=== PATIENT | male | born 1970 | race Caucasian/White ===

== ENCOUNTER → 2017-07-22 11:16 | Outpatient (CLI) | payer OTHER, SELFPAY ==
--- NOTE | 2017-07-22 | TISS_PTH ---
PATIENT: SADIA CLEVELAND Jr. LOC: EMI U#:[id number] AGE/SX: 55/M ROOM: RE07/22/[address]: Dr. Benigno Quiñonez MD : 1970 BED: DIS: SPEC #: [id number] RECD: 07/23/17 11:04 STATUS: LEIGHTON MELISSA #: [id number] FARHAT: 07/22/17 00:[address]: Benigno Quiñonez DEPT: SURGICAL PATHOLOGY RECD BY: Lesly Harmon ENTERED: 07/23/17 12:14 SP TYPE: Tissue Bx EDI DR: Dr. Bhupendra Jurado MD Tissues: Skin of arm Procedures: Surgery Specimen Level IV HEADER OPERATION: Biopsy by shave method PRE-OP DIAGNOSIS: Basal cell carcinoma vs other TISSUE SUBMITTED: Right anterior proximal, upper arm MICROSCOPIC DIAGNOSIS Skin, right anterior proximal upper arm, shave biopsy: Basal cell carcinoma, superficial, ulcerated. AM:phillip 07/24/17 COMMENT Basal cell carcinoma extends to the deep margin of excision. Clinical correlation is suggested. MICROSCOPIC DESCRIPTION Slides are reviewed. GROSS DESCRIPTION Received in fixative is one container labeled with the patient's name and designated right anterior proximal upper arm. The specimen consists of a shave biopsy of lopez-white skin measuring 0.4 x 0.4 x 0.1 cm. The specimen is inked and submitted entirely in one cassette. / SJ:rg 07/23/17 TC:0 CPT: 18683
== END ==
PROVIDERS: Family Provider Family Medicine; PCP Family Medicine; Visit Provider Dermatology
DX: D48.5 Neoplasm of uncertain behavior of skin (principal)
CPT/HCPCS: 88305

== ENCOUNTER → 2019-04-04 13:39 | Outpatient (CLI) | payer OTHER, SELFPAY ==
[2019-03-02 15:09] VITALS: BMI 30.8
--- NOTE | 2019-04-04 13:42 | STEWCON_ITS ---
Reason For Study: Atrial Fibrillation Stress Results Protocol: Miguel Ángel Protocol Maximum Predicted HR: 169 bpm Target HR: 144 bpm % Maximum Predicted HR: 97 % DurationHeart Rate Stage (mm:ss) (bpm) BP Comment Baseline 82 130/82No Chest Pain; 3 ML Diluted Definity Given Miguel Ángel Protocol Stage I 3:00 100 134/70No Chest Pain Miguel Ángel Protocol Stage II 3:00 117 140/64No Chest Pain Miguel Ángel Protocol Stage III 3:00 133 146/60No Chest Pain Miguel Ángel Protocol Stage IV 3:00 164 160/72No Chest Pain Recovery 100 130/64No Chest Pain Stress Duration: 12:00 mm:ss Maximum Stress HR: 164 bpm METS: 13 Baseline Echocardiogram Findings Stress Echo Wall motion Data Resting WM Intermediate WM Stress WM Interpretation Summary Exercise stress echo. 49-year-old male with a history of chest pain. Resting EKG demonstrates normal sinus rhythm with a rate of 82 bpm normal intervals are noted resting blood pressures 130/82 mmHg. The patient exercised according to regular Miguel Ángel protocol for a total duration of 12 minutes completing stage IV of the Miguel Ángel protocol the maximum heart rate attained was 164 bpm which was 97% of maximum predicted heart rate the maximum workload was 13.7 metabolic equivalents. At rest there were no ST or T wave changes noted suggest ischemia peak exercise upsloping ST changes only were noted with no meet the criteria for ischemia. The resting blood pressure was 130/82 mmHg with a peak blood pressure 170/70 mmHg. No chest pain was noted. Echocardiographic images. The resting and stress echocardiographic images were performed with Definity enhancement. The resting echocardiogram demonstrated an ejection fraction of 60% with peak ejection fraction of 75% and no wall motion abnormalities noted. No ischemia is noted. Conclusion: Normal stress echocardiographic evaluation with no evidence of ischemia. No clinical angina. Excellent functional capacity. Ordering Physician: José Miguel Martinez Referring Physician: Bhupendra Jurado Performed By: Clare Saunders, JAMACS, RVT
== END ==
PROVIDERS: Family Provider Family Medicine; PCP Family Medicine; Referring Provider Internal Medicine Cardiovascular Disease; Visit Provider Internal Medicine Cardiovascular Disease
DX: I48.0 Paroxysmal atrial fibrillation (principal)
CPT/HCPCS: 93017; 93350; Q9957; A4216; C8928

== ENCOUNTER 2021-04-07 17:26 | Emergency (ER) | payer OTHER, SELFPAY ==
[2021-04-07] VITALS (8 sets, daily range): BP systolic 120–152; BP diastolic 80–118; PULSE 82–171; RESP 14–23; TEMP 36.3; O2SAT 93–100; BMI 29.7
--- NOTE | 2021-04-07 17:34 | EKG12_ITS ---
Test Reason : PALP Blood Pressure : / mmHG Vent. Rate : 153 BPM Atrial Rate : 174 BPM P-R Int : 000 ms QRS Dur : 092 ms QT Int : 292 ms P-R-T Axes : 000 014 233 degrees QTc Int : [address] & T wave abnormality, consider inferolateral ischemia Abnormal ECG Confirmed by SHARON CARRIZALES, RAYMUNDO ([id number]), film or videotape editor VALENTE GILLILAND ([id number]) on 04/09/2021 10:58:22 AM Referred By: Confirmed By:RAYMUNDO HERRERA MD
--- NOTE | 2021-04-07 17:39 | EX.ED.DYSGE1 ---
HPI History of Present Illness Chief Complaint: Palpitations Informant: patient and spouse/S.O. Narrative Narrative: 51-year-old male with a history of atrial fibrillation maintained on metoprolol presents to the emergency department with atrial fibrillation. Patient states that he noted that he went into A. fib at 1610 hrs. Patient states he took an extra metoprolol and had no change in his rhythm so he came to emergency. He does note that he missed his metoprolol dose last night. He states that he had a normal echocardiogram. The last time he had atrial fibrillation he converted after about 5-1/2 hours of Cardizem drip. He denies any chest pain or shortness of breath. [facility] Medical History Depression Diverticulitis Herpes Hyperlipidemia Insomnia New onset atrial fibrillation (02/02/19) Obesity Paroxysmal atrial fibrillation Home Medications metoprolol succinate 50 mg tablet,extended release 24 hr 50 mg PO BID #180 tab 12/06/20 [Rx Last Taken Unknown] Allergy/AdvReac Type Severity Reaction Status Date / Time No Known Allergies Allergy Verified 04/07/21 17:26 Family History Father Cancer Grandmother No problems noted. Grandfather Cancer Surgical History History of open sigmoidectomy Social History Smoking Status: Never smoker Smokeless tobacco user: other alcohol intake: current caffeine: Yes Type: coffee Number of servings: 2 ROS ROS ED Constitutional Constitutional ED: Denies chills or weight loss Eyes Eyes: Denies change in vision or diplopia ENT ENT ED: Denies ear pain, rhinorrhea or sore throat Cardiovascular Cardiovascular: Reports palpitations and racing heartbeat; Denies chest pain or orthopnea Respiratory/Chest Respiratory/Chest: Denies cough, dyspnea or orthopnea Gastrointestinal Gastrointestinal: Denies abdominal pain, diarrhea, nausea or vomiting Genitourinary Genitourinary ED: Denies dysuria, hematuria or urinary frequency Musculoskeletal Musculoskeletal: Denies arthralgias or myalgias Integumentary Denies abscess or rash Neurologic Neurologic: Denies headache(s) or weakness Psychiatric Psychiatric: Denies anxiety, depression, suicidal ideation or suicidal thoughts Endocrine Endocrinology: Denies polydipsia, polyphagia or polyuria Allergic/Immunologic Allergic/Immunologic ED: Denies mouth swelling, tongue swelling or urticaria EXAM Physical Exam Const Vital Signs: 04/07/21 17:26 04/07/21 17:45 04/07/21 18:02 Temperature 97.4 F L Temperature Source Temporal Pulse Rate 90 159 H Pulse Rate [1 (Initial Baseline)] Pulse Rate [2] Pulse Rate [3] Respiratory Rate 20 H 22 H Respiratory Rate [1 (Initial Baseline)] Respiratory Rate [2] Respiratory Rate [3] Respiratory Effort Normal Non-Labored Respiratory Pattern Normal Blood Pressure 146/105 H Blood Pressure [1 (Initial Baseline)] Blood Pressure [2] Blood Pressure [3] Blood Pressure Mean 118 Pulse Ox 100 97 Oxygen Delivery Method Room Air Room Air Oxygen Delivery Method [1 (Initial Baseline)] Oxygen Delivery Method [2] Oxygen Flow Rate (L/min) Oxygen Flow Rate (L/min) [1 (Initial Baseline)] Oxygen Flow Rate (L/min) [2] 04/07/21 18:41 04/07/21 18:54 04/07/21 18:55 Temperature Temperature Source Pulse Rate 171 H 91 91 Pulse Rate [1 (Initial Baseline)] 149 H Pulse Rate [2] 94 Pulse Rate [3] 106 H Respiratory Rate 18 20 H 19 H Respiratory Rate [1 (Initial Baseline)] 23 H Respiratory Rate [2] 14 Respiratory Rate [3] 22 H Respiratory Effort Respiratory Pattern Blood Pressure 132/87 H 144/89 H 132/93 H Blood Pressure [1 (Initial Baseline)] 152/118 H Blood Pressure [2] 149/90 H Blood Pressure [3] 132/87 H Blood Pressure Mean 107 Pulse Ox 96 96 95 Oxygen Delivery Method Nasal Cannula Nasal Cannula Room Air Oxygen Delivery Method [1 (Initial Baseline)] Room Air Oxygen Delivery Method [2] Nasal Cannula Oxygen Flow Rate (L/min) 4 4 Oxygen Flow Rate (L/min) [1 (Initial Baseline)] 98 Oxygen Flow Rate (L/min) [2] 4 04/07/21 19:00 04/07/21 19:05 Temperature Temperature Source Pulse Rate 95 87 Pulse Rate [1 (Initial Baseline)] Pulse Rate [2] Pulse Rate [3] Respiratory Rate 18 14 Respiratory Rate [1 (Initial Baseline)] Respiratory Rate [2] Respiratory Rate [3] Respiratory Effort Respiratory Pattern Blood Pressure 139/94 H 130/88 H Blood Pressure [1 (Initial Baseline)] Blood Pressure [2] Blood Pressure [3] Blood Pressure Mean Pulse Ox 95 95 Oxygen Delivery Method Room Air Room Air Oxygen Delivery Method [1 (Initial Baseline)] Oxygen Delivery Method [2] Oxygen Flow Rate (L/min) Oxygen Flow Rate (L/min) [1 (Initial Baseline)] Oxygen Flow Rate (L/min) [2] Positive well nourished and well developed General Appearance ED: well developed HEENT Reports normocephalic, head/scalp atraumatic, TM's clear and moist mucous membranes Negative for trauma Tympanic Membrane ED: Yes TM's clear Eyes PERRL and EOMs intact bilaterally Neck no lymphadenopathy, supple and no JVD Resp normal respiratory effort and clear to auscultation bilaterally Cardio no murmurs Rhythm: abnormal rhythm irregularly irregular GI normal to inspection, nondistended, normoactive bowel sounds and non-tender Palpation: soft Back/Spine no CVA tenderness and normal ROM Extremity normal to inspection General Extremety ED: Negative for edema General Extremity: Negative for edema Neuro oriented x3 and CN's II-XII intact bilaterally Sensorium / Orientation: alert Motor Exam: strength 5/5 throughout Psych mental status grossly normal Mood & Affect: Negative for depressed or tearful Skin no rashes or lesions noted and no wounds MDM MDM MDM Narrative Medical decision making narrative: Case was discussed with patient's senior assistant manager Dr. Martinez. He will be given a dose of Lovenox as we wait for labs. If labs are negative we will proceed with procedural sedation for electrical cardioversion. Patient is comfortable with this plan. Patient received a milligram of Ativan due to anxiety of the cardioversion. ASIC labs were obtained and showed normal potassium magnesium sodium troponin. Not anemic. Patient provided informed consent for the use of procedural sedation for electrical cardioversion. Patient was placed on the monitor given supplemental oxygen defibrillation pads were placed front and back. Timeout was performed. The patient received 25 mcg of fentanyl. 15 mg of etomidate was given. Once adequate sedation was achieved the patient received a synchronized 200 J shock which resulted in conversion to a sinus rhythm. Recovered in 5 minutes total procedural sedation time of 5 minutes. During recovery phase he did not have any apnea or hypoxia or hypotension. Patient was allowed to fully recover from the anesthesia. Repeat EKG will be obtained to document normal sinus rhythm. Lab Data Attestation: I reviewed the patient's lab results. Labs: Laboratory Results - last 24 hr 04/07/21 04/07/21 17:44 17:44 WBC 7.7 RBC 4.88 Hgb 15.0 Hct 43.3 MCV 88.7 MCH 30.7 MCHC 34.6 RDW Std Deviation 39.2 RDW Coeff of Elsa 12.1 Plt Count 275 MPV 8.9 Immature Gran % (Auto) 0.100 Neut % (Auto) 51.5 Lymph % (Auto) 36.3 [place] % (Auto) 10.4 H Eos % (Auto) 1.3 Baso % (Auto) 0.4 Absolute Neuts (auto) 4.0 Absolute Lymphs (auto) 2.80 Nucleated RBC % 0 Sodium 139 Potassium 3.6 Chloride 106 Carbon Dioxide 26.0 Anion Gap 7 BUN 16 Creatinine 1.02 Estim Creat Clear Calc 97.38 Est GFR (MDRD) Af Amer 98 Est GFR (MDRD) Non-Af 81 BUN/Creatinine Ratio 15.7 Glucose 126 H Calcium 9.4 Magnesium 2.1 Troponin I High Sens 5 EKG Initial EKG: Attestation: I personally reviewed and interpreted this EKG as follows: Comments: Atrial fibrillation with a ventricular rate of 153 bpm. Follow-up EKG: Attestation: I personally reviewed and interpreted this EKG as follows: Comments: Normal sinus rhythm ventricular rate of 86 bpm. Discharge Plan Triage Chief Complaint: Palpitations ED Provider: Patrick Patel Dx/Rx/DC Orders Clinical Impression: Paroxysmal atrial fibrillation Instructions: ED AFIB Prescriptions: No Action metoprolol succinate [Toprol XL] 50 mg tablet extended release 24 hr 50 mg PO BID Qty: 180 RF: 3 Primary Care Provider: Bhupendra Jurado Referrals: José Miguel Martinez MD [STAFF PHYSICIAN] - 1-2 Weeks Bhupendra Jurado MD [Primary Care Provider] - Disposition Disposition: Home, Self Care
[2021-04-07] MEDS: Enoxaparin 100 MG/ML Syringe SC (17:56)
[2021-04-07] MEDS: Aspirin 81 MG TAB.CHEW 324 MG PO (17:57)
[2021-04-07] MEDS: LORazepam 2 MG/ML Syringe 1 MG IV (17:58)
[2021-04-07 18:01] LABS: Basophil# 0.03 X10^3/uL; Basophil% 0.4 % (0-1); Eosinophils% 1.3 % (0-5); Hematocrit 43.3 % (40-54); Lymphocyte % 36.3 % (19-41); Mean Corp Hgb Conc 34.6 g/dL (32-36); Mean Corpuscular Hgb 30.7 pg (27.0-32.0); Mean Corpuscular Volume 88.7 fL (80-94); Mean Platelet Vol. 8.9 fl (6.2-12.0); Monocyte% 10.4 % (0-10); NRBC Flagged by Analyzer 0 % (0-5); Neutrophil # 3.98 X10^3/uL (2.7-7.7); Neutrophil % 51.5 % (47-70); Platelet Count 275 K/mm3 (150-450); RBC Distribution Width CV 12.1 % (11.6-14.6); RBC Distribution Width SD 39.2 fl (35.1-43.9); Red Blood Count 4.88 M/mm3 (4.6-6.2); White Blood Count 7.7 K/mm3 (4.4-11.0)
[2021-04-07 18:23] LABS: Anion Gap 7 (5-15); BUN 16 mg/dL (7-18); BUN/Creat Ratio 15.7 RATIO (10-20); Calcium,Total 9.4 mg/dL (8.5-10.1); Chloride 106 mmol/L (98-107); Creatinine, Serum 1.02 mg/dL (0.70-1.30); EST Glomerular Filtration Rate 81 mL/min (>60); Est Glom Filt Rate - Afr Amer 98 mL/min (>60); Estimated Creatinine Clearance 97.38 ml/min; Glucose 126 mg/dL (74-106); Magnesium 2.1 mg/dL (1.6-2.6); Potassium 3.6 mmol/L (3.5-5.1); Sodium Level 139 mmol/L (136-145); Troponin-I HS 5 pg/mL (3.0-78.0)
--- NOTE | 2021-04-07 18:49 | EKG12_ITS ---
Test Reason : POST CV Blood Pressure : / mmHG Vent. Rate : 086 BPM Atrial Rate : 086 BPM P-R Int : 158 ms QRS Dur : 088 ms QT Int : 362 ms P-R-T Axes : 032 018 025 degrees QTc Int : 433 ms Normal sinus rhythm Normal ECG Confirmed by SHARON CARRIZALES, RAYMUNDO ([id number]), scientific publications editor VALENTE GILLILAND ([id number]) on 04/09/2021 10:58:39 AM Referred By: Confirmed By:RAYMUNDO HERRERA MD
[2021-04-07] MEDS: fentaNYL 100 MCG/2 ML Ampul 25 MCG IV (18:50)
[2021-04-07] MEDS: Etomidate 20 MG/10 ML Vial 15 MG IV (18:50)
== END 2021-04-07 20:02 | disposition home or self-care (01) ==
PROVIDERS: Emergency Provider Emergency Medicine; PCP Family Medicine
DX: I48.0 Paroxysmal atrial fibrillation (principal); E66.9 Obesity, unspecified
CPT/HCPCS: 92960; 36591; 80048; 83735; 84484; 85025; 93005; 96372; 96374; 99285; J7030; A4216

== ENCOUNTER 2021-05-20 04:02 | Emergency (ER) | payer OTHER, SELFPAY ==
[2021-05-20] VITALS (9 sets, daily range): BP systolic 103–128; BP diastolic 72–96; PULSE 64–162; RESP 15–20; TEMP 36.7; O2SAT 95–99; BMI 31.2
--- NOTE | 2021-05-20 04:09 | EKG12_ITS ---
Test Reason : A-FIB Blood Pressure : / mmHG Vent. Rate : 136 BPM Atrial Rate : 136 BPM P-R Int : 000 ms QRS Dur : 090 ms QT Int : 264 ms P-R-T Axes : 000 010 054 degrees QTc Int : 397 ms Atrial fibrillation Nonspecific ST and T wave abnormality Abnormal ECG Confirmed by SUAD CARRIZALES, SHARI ([id number]), newspaper editor managing VALENTE GILLILAND ([id number]) on 05/22/2021 10:23:07 AM Referred By: RAPHAEL Confirmed By:SHARI BORJAS MD
--- NOTE | 2021-05-20 04:15 | RAD_ITS ---
STUDY: X-RAY CHEST REASON FOR EXAM: Male, 51 years old patient with chest pain. TECHNIQUE: Single AP portable view of the chest. COMPARISON: 11/01/2011. FINDINGS: Cardiac monitoring leads are present. The lungs are clear and hyperexpanded. There is no demonstrated pleural abnormality. Normal size heart. Normal mediastinum and zita. Normal visualized pulmonary arteries. Normal visualized aortic arch and descending thoracic aorta. Normal visualized thoracic spine. There are old bilateral clavicle fractures. There is no demonstrated abnormality of the visualized soft tissue structures of the upper abdomen. RAD/Chest 1 View (Portable) IMPRESSION: No radiographic evidence of acute cardiopulmonary disease. Electronically Signed: Anamika Galdamez MD at 4:38 EST , Service support ,
--- NOTE | 2021-05-20 04:21 | ED.VIS.CHEST ---
HPI History of Present Illness Chief Complaint: Palpitations Informant: patient Onset/Context/Timing Onset: Today and Hours Activity at onset: sudden Timing: Continuous Current Severity: Mild Maximum Severity: Mild Relieved By: Nothing Narrative Narrative: 51-year-old male known history of A. fib. First diagnosed in January 2019. That time he converted with medication. He had done well and in March of this year had recurrent A. fib RVR. Presented the emergency department and cardioverted at that time using conscious sedation and cardioversion. Tonight he got up to go the restroom and about an hour ago had recurrent A. fib. Otherwise he states he feels well. Denies recent illness. Prior Similar Symptoms: Yes Recent Illness/Hospitalization: No CVD Risk Factors: Negative for Hypertension, Diabetes and Hypercholesterolemia PE Risk Factors: Negative for Recent Travel/Surgery, Recent Immobilization, Prior DVT or PE, Cancer and OCP + Smoking + >/=35 TAD Risk Factors: Negative for Marfan's Syndrome PFSH PFS Medical History Atrial fibrillation with rapid ventricular response (04/07/21) Depression Diverticulitis Herpes Hyperlipidemia Insomnia New onset atrial fibrillation (02/02/19) Obesity Paroxysmal atrial fibrillation Home Medications metoprolol succinate 50 mg tablet,extended release 24 hr 50 mg PO BID #180 tab 12/06/20 [Rx Last Taken 05/20/21] metoprolol tartrate 25 mg tablet 25 mg PO DAILY PRN #90 tab 05/07/21 [Rx Last Taken 05/20/21] Allergy/AdvReac Type Severity Reaction Status Date / Time No Known Allergies Allergy Verified 04/07/21 17:26 Family History Father Cancer Grandmother No problems noted. Grandfather Cancer Surgical History History of cardioversion (04/07/21) History of open sigmoidectomy Social History Smoking Status: Never smoker Smokeless tobacco user: other alcohol intake: current caffeine: Yes Type: coffee Number of servings: 2 ROS ROS ED ROS Narrative No recent illness. Review of Systems ROS Unobtainable: Denies due to encephalopathy Constitutional Constitutional ED: Denies fever(s) Eyes Eyes: Denies none ENT ENT ED: Denies ear pain Cardiovascular Cardiovascular: Reports as per HPI and palpitations; Denies chest pain Respiratory/Chest Respiratory/Chest: Denies dyspnea Gastrointestinal Gastrointestinal: Denies abdominal pain, diarrhea, nausea or vomiting Genitourinary Genitourinary ED: Denies dysuria Musculoskeletal Musculoskeletal: Denies myalgias Integumentary Denies rash Neurologic Neurologic: Denies headache(s) Psychiatric Psychiatric: Denies depression Endocrine Endocrinology: Denies polyuria Hematologic/Lymphatic Hematologic/Lymphatic: Denies easy bruising Allergic/Immunologic Allergic/Immunologic ED: Denies urticaria EXAM Physical Exam Narrative Exam Narrative: Middle-age male A. fib RVR but no distress. Vital signs otherwise are stable. Pulse ox 90% room air no signs hypoxia. HEENT exam unremarkable neck nontender. Lungs clear to auscultation bilaterally. Heart irregularly irregular rate about 135 no murmur. Abdomen soft nontender. Moving all 4 extremities. Calves are nontender without edema or cords. Neurologically is awake and alert with no focal motor deficits. Const Vital Signs: 05/20/21 04:03 05/20/21 04:09 05/20/21 04:11 Temperature 98.1 F Temperature Source Temporal Pulse Rate 137 H Pulse Rate [1 (Initial Baseline)] Pulse Rate [2] Respiratory Rate 18 Respiratory Rate [1 (Initial Baseline)] Respiratory Rate [2] Respiratory Effort Normal Non-Labored Blood Pressure 112/96 H Blood Pressure [1 (Initial Baseline)] Blood Pressure [2] Blood Pressure Mean 101 Pulse Ox 99 Oxygen Delivery Method Room Air Room Air Oxygen Delivery Method [1 (Initial Baseline)] Oxygen Delivery Method [2] Oxygen Flow Rate (L/min) Oxygen Flow Rate (L/min) [1 (Initial Baseline)] Oxygen Flow Rate (L/min) [2] 05/20/21 05:02 05/20/21 05:17 05/20/21 05:24 Temperature Temperature Source Pulse Rate 77 162 H 76 Pulse Rate [1 (Initial Baseline)] 152 H Pulse Rate [2] 88 Respiratory Rate 20 H 15 20 H Respiratory Rate [1 (Initial Baseline)] 15 Respiratory Rate [2] 20 H Respiratory Effort Blood Pressure 117/72 119/80 107/73 Blood Pressure [1 (Initial Baseline)] 119/80 Blood Pressure [2] 117/72 Blood Pressure Mean 87 Pulse Ox 95 96 96 Oxygen Delivery Method Room Air Nasal Cannula Oxygen Delivery Method [1 (Initial Baseline)] Nasal Cannula Oxygen Delivery Method [2] Nasal Cannula Oxygen Flow Rate (L/min) Oxygen Flow Rate (L/min) [1 (Initial Baseline)] 4 Oxygen Flow Rate (L/min) [2] 4 05/20/21 05:29 05/20/21 05:34 05/20/21 06:00 Temperature Temperature Source Pulse Rate 77 79 72 Pulse Rate [1 (Initial Baseline)] Pulse Rate [2] Respiratory Rate 20 H 20 H 16 Respiratory Rate [1 (Initial Baseline)] Respiratory Rate [2] Respiratory Effort Blood Pressure 104/77 103/77 114/76 Blood Pressure [1 (Initial Baseline)] Blood Pressure [2] Blood Pressure Mean 88 Pulse Ox 96 97 97 Oxygen Delivery Method Nasal Cannula Nasal Cannula Oxygen Delivery Method [1 (Initial Baseline)] Oxygen Delivery Method [2] Oxygen Flow Rate (L/min) 4 4 Oxygen Flow Rate (L/min) [1 (Initial Baseline)] Oxygen Flow Rate (L/min) [2] Positive well nourished and well developed; Negative for obese, cachectic, contractures or unkempt General Appearance ED: well developed and NAD; Negative for unkempt, cachectic, contractures or pallor Nutritional Appearance: Negative for cachectic or obese HEENT normocephalic and atraumatic; Negative for trauma or tenderness Eyes PERRL and EOMs intact bilaterally Neck no lymphadenopathy, supple and no JVD General: Negative for tenderness Chest Wall inspection of chest normal and palpation of chest normal Chest: Negative for tenderness Resp normal respiratory effort and clear to auscultation bilaterally Auscultation: Negative for rales, rhonchi or wheezes Cardio no murmurs Rate: tachycardic and other Other Details: A. fib RVR rate of 135 or so. GI normal to inspection, nondistended, normoactive bowel sounds, soft to palpation, non-tender, non-distended and no masses Back/Spine no CVA tenderness Extremity normal to inspection General Extremety ED: Negative for edema or tenderness General Extremity: Negative for edema Neuro oriented x3 Sensorium / Orientation: awake, alert, oriented to person, oriented to place and oriented to time Motor Exam: strength 5/5 throughout Psych mental status grossly normal Appearance: Negative for unkempt Attitude: No agitated Mood & Affect: Negative for depressed or tearful Skin no rashes or lesions noted and no wounds General Skin Exam: Negative for jaundice or pallor MDM MDM MDM Narrative Medical decision making narrative: 51-year-old male A. fib RVR rate in the 130s. Labs are being obtained. Most likely will be cardioverted. Discussed with patient he wanted to be cardioverted. He was treated with etomidate 7 cc approximately 14 mg. Had conscious sedation within seconds. He was cardioverted with 200 J. His rhythm changed immediately to a sinus rhythm rate 85. He woke up after several minutes. His vital signs were stable the entire time. Will be observed and discharged to home. Repeat exam patient doing well at 6:30 AM. He is resting comfortably. He remains in sinus rhythm rate of 72. I spoke to patient's manager statistical programming he will follow him up as an outpatient. Lab Data Attestation: I reviewed the patient's lab results. Lab results narrative: CBC White count of 7. Hemoglobin 15. Platelets 269. Electrolytes unremarkable gap of 7 BUN 20 creatinine 1.9. Glucose 115. Troponin normal. Labs: Laboratory Results - last 24 hr 05/20/21 05/20/21 04:11 04:11 WBC 7.0 RBC 5.11 Hgb 15.0 Hct 45.1 MCV 88.3 MCH 29.4 MCHC 33.3 RDW Std Deviation 39.9 RDW Coeff of Elsa 12.2 Plt Count 269 MPV 8.5 Immature Gran % (Auto) 0.300 Neut % (Auto) 46.8 L Lymph % (Auto) 35.6 [place] % (Auto) 14.0 H Eos % (Auto) 2.7 Baso % (Auto) 0.6 Absolute Neuts (auto) 3.3 Absolute Lymphs (auto) 2.49 Nucleated RBC % 0 Sodium 141 Potassium 4.0 Chloride 111 H Carbon Dioxide 23.0 Anion Gap 7 BUN 20 H Creatinine 0.90 Estim Creat Clear Calc 110.36 Est GFR (MDRD) Af Amer 113 Est GFR (MDRD) Non-Af 94 BUN/Creatinine Ratio 22.2 H Glucose 115 H Calcium 9.0 Troponin I High Sens 4 Radiography Chest X-Ray - ED: 1 View, Read by ED Physician, Read by Radiologist, Normal, Heart, Lungs, Mediastinum, Bony Structures and No Acute Disease Diagnostic Testing: Clinical Impression(s) from Imaging Studies Chest X-Ray 05/20/21 04:15 IMPRESSION: No radiographic evidence of acute cardiopulmonary disease. Electronically Signed: Anamika Galdamez MD at 4:38 EST , Service support , Portable, single view chest x-ray, interpreted by myself the radiologist shows no acute abnormality. Normal cardiac silhouette and mediastinum. Old, bilateral clavicle fractures that have healed. Rhythm Strip Rhythm Strip: A-fib Rate: 136 Ectopy: None EKG Initial EKG: Attestation: I personally reviewed and interpreted this EKG as follows: Interpretation: Atrial Fibrillation Comments: Atrial fibrillation with rapid ventricular rate of 136 no acute signs of SD. Procedures Other Procedures Procedure(s): Cardioversion: Conscious sedation with etomidate. Cardioverted with 200 J. Patient did well. Immediately converted to a sinus rhythm at 85. Discharge Plan Triage Chief Complaint: Palpitations ED Provider: Roscoe Winn Dx/Rx/DC Orders Clinical Impression: Paroxysmal atrial fibrillation, Atrial fibrillation status post cardioversion Instructions: ED AFIB Prescriptions: No Action metoprolol succinate [Toprol XL] 50 mg tablet extended release 24 hr 50 mg PO BID Qty: 180 RF: 3 metoprolol tartrate 25 mg tablet 25 mg PO DAILY PRN (Reason: for breakthrough arrythmia) Qty: 90 RF: 3 Primary Care Provider: Bhupendra Jurado Referrals: Bhupendra Jurado MD [Primary Care Provider] - Activity Restrictions/Additional Instructions: Continue your current medications. Follow-up with your manager statistical programming. Return if feeling worse. I would not drive today due to the conscious sedation. Disposition Disposition: Home, Self Care
[2021-05-20 04:32] LABS: Absolute Lymphocyte Count 2.49 X10^3/uL (0.83-4.51); Absolute Neutrophil Count 3.3 X10^3/uL (2.0-7.7); Basophil# 0.04 X10^3/uL; Basophil% 0.6 % (0-1); Eosinophil# 0.19 X10^3/uL; Eosinophils% 2.7 % (0-5); Hematocrit 45.1 % (40-54); Lymphocyte # 2.49 X10^3/ul (0.83-4.51); Lymphocyte % 35.6 % (19-41); Mean Corp Hgb Conc 33.3 g/dL (32-36); Mean Corpuscular Hgb 29.4 pg (27.0-32.0); Mean Corpuscular Volume 88.3 fL (80-94); Mean Platelet Vol. 8.5 fl (6.2-12.0); Monocyte# 0.98 X10^3/uL; NRBC Flagged by Analyzer 0 % (0-5); Neutrophil # 3.28 X10^3/uL (2.7-7.7); Neutrophil % 46.8 % (47-70); Platelet Count 269 K/mm3 (150-450); RBC Distribution Width CV 12.2 % (11.6-14.6); RBC Distribution Width SD 39.9 fl (35.1-43.9); Red Blood Count 5.11 M/mm3 (4.6-6.2)
[2021-05-20] MEDS: LORazepam 2 MG/ML Syringe 1 MG IV (04:34)
[2021-05-20 04:51] LABS: Anion Gap 7 (5-15); BUN 20 mg/dL (7-18); BUN/Creat Ratio 22.2 RATIO (10-20); Chloride 111 mmol/L (98-107); EST Glomerular Filtration Rate 94 mL/min (>60); Est Glom Filt Rate - Afr Amer 113 mL/min (>60); Estimated Creatinine Clearance 110.36 ml/min; Glucose 115 mg/dL (74-106); Sodium Level 141 mmol/L (136-145); Troponin-I HS 4 pg/mL (3.0-78.0)
[2021-05-20] MEDS: Etomidate 20 MG/10 ML Vial 14 MG IV (05:17)
== END 2021-05-20 07:51 | disposition home or self-care (01) ==
PROVIDERS: Emergency Provider Emergency Medicine; PCP Family Medicine
DX: I48.0 Paroxysmal atrial fibrillation (principal); Z79.899 Other long term (current) drug therapy
CPT/HCPCS: 71045; 80048; 84484; 85025; 92960; 93005; 96374; 96375; 99285; J7050; A4216

== ENCOUNTER → 2024-02-25 | Outpatient (CLI) | payer OTHER, SELFPAY ==
--- NOTE | 2024-02-25 12:50 | STE_ITS ---
Reason For Study: CHEST PAIN Stress Results Protocol: Miguel Ángel Protocol Maximum Predicted HR: 164 bpm Target HR: 139 bpm % Maximum Predicted HR: 87 % DurationHeart Rate Stage (mm:ss) (bpm) BP BASELINE 71 128/86 STAGE 1 3:00 94 126/74 STAGE 2 3:00 105 120/70 STAGE 3 3:00 121 132/74 STAGE 4 2:16 142 142/78 RECOVERY 90 130/80 Stress Duration: 11:16 mm:ss Maximum Stress HR: 142 bpm Baseline Echocardiogram Findings Stress Echo Wall motion Data Resting WM Intermediate WM Stress WM ECHO/Stress Test Echo w/o Contrast Interpretation Summary Exercise stress echo. 54-year-old man with a history of chest pain. Rest EKG demonstrates normal sinus rhythm with a rate of 72 bpm normal interval s are noted resting blood pressure is 128/86 mmHg. The patient exercised according to the regular B ruce protocol for a total duration of 11 minutes and 15 seconds. Patient completed 2 minutes and 15 seconds stage IV of the Miguel Ángel protocol the maximum heart rate attained was 144 bpm which was 87% of max impacted heart rate the maximum workload was 13.7 metabolic equivalents. The patient maintaine d sinus rhythm throughout the recording. At rest there were no ST or T wave changes noted sugg est ischemia and at peak exercise there was up to [address] depression noted in lead V4, V5 and V6 not suggestive of ischemia. No chest discomfort which noted. The test was terminate d due to attainment of target heart rate. The peak blood pressure was 144/82 which was a blunted bl ood pressure response rate to exercise. Stress echocardiogram. Resting echocardiographic images demonstrated an ejection fraction of 55% at re st. No wall motion abnormalities were noted. With exercise there was reduction of low ventricular cavity size but the anterior wall appeared to exhibit less thickening and less contractions suggest suzanne of a possible perfusion abnormality noted in the anterior wall. Conclusion: Abnormal exercise stress echocardiogram with evidence of mid anterior ischemia noted at a high workload. Good functional aerobic capacity. Ordering Physician: Donovan Saunders Referring Physician: Donovan Saunders Performed By: Terri Grijalva RCS
== END | disposition home or self-care (01) ==
LOC: CVS 12:50
PROVIDERS: PCP Family Medicine; Referring Provider Nurse Practitioner Family; Visit Provider Nurse Practitioner Family
DX: R07.9 Chest pain, unspecified (principal); I48.0 Paroxysmal atrial fibrillation; E78.5 Hyperlipidemia, unspecified
CPT/HCPCS: 93017; 93350

== ENCOUNTER 2024-03-14 12:36 | Observation (INO) | payer OTHER, SELFPAY ==
--- NOTE | 2024-03-09 08:41 | RAD_ITS ---
EXAM: XR CHEST, 2 VIEWS CLINICAL INDICATION: Pre heart cath, [facility] TECHNIQUE: Frontal and lateral views of the chest. COMPARISON: May 20, 2021, November 01, 2011. FINDINGS: LUNGS AND PLEURAL SPACES: Unremarkable. No consolidation or edema. No pneumothorax. No effusion. HEART: Unremarkable. Cardiac silhouette not enlarged. MEDIASTINUM: Central airways and mediastinal contour are unremarkable. BONES/JOINTS: There are old healed fractures of bilateral mid clavicles, similar to prior exam. Mild multilevel thoracic spondylosis is unchanged. SOFT TISSUES: Unremarkable. RAD/Chest PA and Lateral IMPRESSION: No acute findings in the chest. Electronically Signed: Pau Ascencio MD at 2:33 EDT ,
[2024-03-09 09:27] LABS: Absolute Lymphocyte Count 2.53 X10^3/uL (0.83-4.51); Absolute Neutrophil Count 4.2 X10^3/uL (2.0-7.7); Basophil# 0.03 X10^3/uL; Basophil% 0.4 % (0-1); Eosinophil# 0.05 X10^3/uL; Eosinophils% 0.7 % (0-5); Hematocrit 45.4 % (40-54); Hemoglobin 15.3 g/dL (13.0-16.5); Lymphocyte # 2.53 X10^3/ul (0.83-4.51); Lymphocyte % 33.2 % (19-41); Mean Corp Hgb Conc 33.7 g/dL (32-36); Mean Corpuscular Hgb 29.9 pg (27.0-32.0); Mean Corpuscular Volume 88.7 fL (80-94); Mean Platelet Vol. 9.1 fl (6.2-12.0); Monocyte# 0.79 X10^3/uL; Monocyte% 10.4 % (0-10); NRBC Flagged by Analyzer 0 % (0-5); Neutrophil # 4.21 X10^3/uL (2.7-7.7); Platelet Count 274 K/mm3 (150-450); RBC Distribution Width CV 12.4 % (11.6-14.6); RBC Distribution Width SD 40.3 fl (35.1-43.9); Red Blood Count 5.12 M/mm3 (4.6-6.2); White Blood Count 7.6 K/mm3 (4.4-11.0)
[2024-03-09 09:51] LABS: Anion Gap 5 (5-15); BUN 16 mg/dL (7-18); BUN/Creat Ratio 16.6 RATIO (10-20); Calcium,Total 9.5 mg/dL (8.5-10.1); Chloride 108 mmol/L (98-107); Creatinine, Serum 0.96 mg/dL (0.70-1.30); EST Glomerular Filtration Rate 86 mL/min (>60); Est Glom Filt Rate - Afr Amer 104 mL/min (>60); Glucose 123 mg/dL (74-106); Potassium 4.2 mmol/L (3.5-5.1); Sodium Level 138 mmol/L (136-145)
[2024-03-11 10:03] VITALS: BMI 33.2
[2024-03-14] VITALS (8 sets, daily range): BP systolic 115–148; BP diastolic 73–83; PULSE 57–76; RESP 12–16; TEMP 36.4–36.5; O2SAT 97–99; BMI 33.2
--- NOTE | 2024-03-14 08:36 | PCM.HP.BLA ---
History and Physical Date of Admission: 03/14/24 Pleasant 53-year-old gentleman who presents to the [facility] today for a heart catheterization. He is a gentleman who had presented with atrial fibrillation with rapid ventricular response rate and spontaneously converted to sinus rhythm. He did unfortunately presents to the hospital again in May of this year and was placed on flecainide. He has done well since then. He is concerned about these episodes occurring more frequently. He has had no neck arm or jaw discomfort suggest angina. He remember he had a stress echocardiogram in 2018 with no evidence of ischemia. During his visit in March you remember he underwent a DC cardioversion in the emergency room. He had been put on flecainide in May 2021 and he has not had any atrial fibrillation episodes since. He acknowledges random, chest tightness. This is located on left and right side of his chest. This last for minutes. This has been infrequent over the past year. He denies arm, jaw, or neck discomfort. He states rare palpitations. He states his Kardia device has not shown A-fib. He denies bilateral lower extremity edema, but states left lower extremity edema. He denies claudication. He denies shortness of breath with activity, shortness of breath at rest, orthopnea, or PND. He acknowledges cough. He states intermittent snoring. He denies significant, sudden weight gain. He denies lightheadedness, dizziness, near-syncope, or syncope. He denies blood in urine, blood in stool, or epistaxis. He denies fever or chills. He denies myalgia. He denies fatigue. His exercise level has remained stable hoping to return to exercising 5 days a week. 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 Grandfather Cancer Social History Smoking Status: Never smoker Smokeless tobacco user: other alcohol intake: current caffeine: Yes Type: coffee Number of servings: 2 ROS Const Const: Negative for fatigue, weakness, headache(s), frequent falls, difficulty sleeping or excessive sweating Eyes Eyes: Negative for loss of peripheral vision, transient loss of vision, blurry vision, double vision or tunnel vision ENT ENT: Negative for headache(s), dizziness, Nosebleed/epistaxis or balance problems Cardio Chest Pain: Yes Frequency: other (a couple of episodes in the last year) Character: tightness Onset: other (Randomly) Location: left chest and right chest Duration: minutes Palpitations: Yes Edema: Left (Relates to varicose vein) Muscle aches with walking: None Resp Respiratory: Positive for Cough (Raspy cough since covid in April); Negative for SOB with activity, SOB at rest, SOB orthopnea\SOB lying down or paroxysmal nocturnal dyspnea GI GI: Negative nausea, vomiting, heartburn or black,tarry stools : Negative for hematuria Musc Musc: Negative for muscle aches/ myalgia, muscle weakness, joint pain or balance problems Skin Skin: Negative non-healing lesions, rash or unusual bruising Neuro Neuro: Negative for dizziness, lightheadedness, near syncope, syncope, frequent falls, headache(s), weakness, blurry vision, double vision or lack of coordination [place] Hematologic/Lymphatic: Negative for easy bleeding or easy bruising Endo Endo: Negative for fatigue, excessive sweating or increased thirst/drinking Psych Psych: Negative for anxiety or depression Allergy Allergy/Immunology: Negative for hives and Negative for rash Cardiology Exam Const Appearance: cooperative, healthy appearing, comfortable and no acute distress Nutritional Appearance: well nourished and obese Orientation: alert, awake and oriented x3 Head Head: normal to inspection Ears: hearing grossly normal bilaterally Nose: external nose normal Face and Sinus: face symmetric Mouth: moist mucous membranes Eyes General: appearance normal, both eyes and all related structures Eyelids: eyelids normal EOM: EOM intact bilaterally Neck Neck: normal visual inspection and no JVD Carotids: normal carotid upstroke Chest Chest inspection: normal inspection of the chest, symmetric chest movement and normal respiratory effort; Negative cough Auscultation: Bilateral: Clear to Auscultation Cardio Rate: regular rate Rhythm: regular rhythm Heart sounds: S1 normal and S2 normal; Negative rub, gallop or murmur GI GI: normal to inspection and obese Neuro General: patient alert, patient awake, patient oriented x3 and CN's II-XI intact bilaterally Skin Skin: no rashes or lesions noted Extremities Pulses: Normal: Right Posterior Tibial Pulse, Left Posterior Tibial Pulse, Right Radial Pulse and Left Radial Pulse Lower Extremity Edema: None: Bilateral Psych Psychological: normal affect Supplemental Info Supplemental Information Stress Echocardiogram from 02/25/2024: Conclusion: Abnormal exercise stress echocardiogram with evidence of mid anterior ischemia noted at a high workload. Good functional aerobic capacity. Assessment and Plan Assessment and Plan (1) Paroxysmal atrial fibrillation: Status: Chronic Plan: [id number] score: 0 Atrial fibrillation stage: 3A, paroxysmal Cardioversion: 04/07/2021 12 Lead EC06/03/2022-sinus rhythm at 71 bpm Stress echocardiogram: 02/25/2024-EF: 55% Heart Rate Control: Metoprolol succinate 50 mg p.o. twice daily, metoprolol tartrate as needed Antiarrhythmic: Flecainide 100 mg p.o. twice daily Anticoagulation/CVA Protection: None due to low [id number] score It was recommended go stress echocardiogram to ensure no coronary artery disease component and ensure safety with flecainide. He proceeded with a stress echocardiogram on 02/25/2024 that was abnormal. On account of abnormal stress test, he will proceed with heart catheterization. Depending on results, further recommendation will be made. He may require antiarrhythmic medication change. (2) Hyperlipidemia: Status: Chronic Qualifiers: Hyperlipidemia type: unspecified Qualified Code(s): E78.5 - Hyperlipidemia, unspecified Plan: He states this being monitored with primary care provider. Last lipid panel available for review is from January 2019. The importance of cholesterol control and lifestyle modifications reviewed with him. He is currently not on cholesterol-lowering medication. He was encouraged continue have his follow-up with primary care provider. (3) Chest pain: Status: Acute Plan: To help assess this further, he underwent a stress echocardiogram on 02/25/2024, that was abnormal. On account of such, he will proceed with heart catheterization. Depending on results, further recommendation will be made.
--- NOTE | 2024-03-14 11:51 | CL.D_ITS ---
Patient Name: SADIA CLEVELAND Study Date: 03/14/2024 Performing: José Miguel Martinez MD Ht: 74 inches 187.96 cm : 1970 Wt: 259 lbs 117.48 kg Age: 54 Gender: male BSA: 2.43 PROCEDURE(S) PERFORMED DC01-(35860)LHC/COR/LV CLINICAL PROFILE AND INDICATIONS Indications: Suspected CAD Heart Failure: None Stress/Imaging Stress Echocardiogram: Yes Result: Positive High RiskStress Echocardiogram: Positive High Risk CAD Presentations: Stable angina. CONCLUSIONS Coronary artery disease with severe disease noted in the left anterior descending artery and moderate disease noted in the right coronary artery RECOMMENDATIONS Referred for immediate PCI DESCRIPTION OF PROCEDURE The patient arrived to the procedure lab. The risks and benefits of the procedure as well as a full description of our services here and current unavailability of surgical backup were fully explained to the patient and/or their significant other prior to the catheterization. The Timeout was completed, verifying the correct patient and procedure. The patient's procedural site was prepped and draped in the usual fashion. Local anesthetic was given subcutaneously to right radial region with Lidocaine 2%. Using a modified Seldinger technique, arterial access was obtained via the right radial artery, a 6Fr sheath was inserted. Right Coronary Artery selective angiography was then performed in multiple views using a 5 Fr. 4.0 [place] catheter. Left Coronary Artery selective angiography was performed in multiple views using a 5 Fr. 4.0 [place] catheter. Left Ventriculography was performed in ALMANZAR projection using a 5 Fr. Pigtail catheter. LV to AO pullback pressures were then recorded. CORONARY ANGIOGRAPHY DOMINANCE: Right Dominant LEFT HEART ASSESSMENT Left Ventricular Ejection Fraction: by LV Gram 60 % Normal LV wall motion Normal Left Ventricular systolic function LEFT MAIN: Angiographically normal LEFT ANTERIOR DESCENDING ARTERY: Medium size vessel with first diagonal branch with 80% proximal long stenosis in the proximal to mid left anterior descending artery with long 90% stenosis in the distal tip and 90% stenosis is present. CIRCUMFLEX ARTERY: Mild luminal irregularities RIGHT CORONARY ARTERY: Diffusely diseased vessel with areas of stenosis in the mid segment of 50 to 60% stenosis. No high-grade focal stenosis is present. COMPLICATIONS PROCEDURE MEDICATIONS Versed 1 mg IV Fentanyl 50 mcg IV Versed 1 mg IV Fentanyl 25 mcg IV Versed 1 mg IV Versed 1 mg IV Oxygen: 2 L/min via nasal cannula Brilinta 180 mg PO @ 03/14/2024 11:36:40 Heparin given IA 03/14/2024 10:08:48 Heparin 6000 unit(s) IV 03/14/2024 11:39:33 Verapamil 2.5mg, Ntg 100mcgs, 3000 units of Heparin given IA 03/14/2024 10:08:48 SUMMARY OF HEMODYNAMIC DATA Time AIR REST ECG 08:50:29 AO 112/54 (70) SA 10:22:04 LV 113/16, 22 10:35:57 LV 115/16, 20 10:36:05 LV 113/16, 21 10:37:05 LVp 118/15, 23 10:37:12 AOp 120/77 (97) 10:37:20 AO 131/82 (103) 11:42:10 11:42:18 Signed By José Miguel Martinez MD On 03/14/2024 11:51:00 José Miguel Martinez MD
--- NOTE | 2024-03-14 12:45 | EKG12_ITS ---
Test Reason : PCI Blood Pressure : / mmHG Vent. Rate : 069 BPM Atrial Rate : 069 BPM P-R Int : 156 ms QRS Dur : 090 ms QT Int : 414 ms P-R-T Axes : 018 000 007 degrees QTc Int : 443 ms Normal sinus rhythm Normal ECG Confirmed by SHARON CARRIZALES, JOSÉ MIGUEL ([id number]), newspaper copy editor VALENTE GILLILAND ([id number]) on 03/15/2024 9:46:29 AM Referred By: José Miguel Martinez Confirmed By:JOSÉ MIGUEL MARTINEZ MD
--- NOTE | 2024-03-14 13:44 | CRPHASE1_ITS ---
Patient Communication Patient Information Former Patient:: Phase I PHII Cardiac Rehab Discussed with Patient:: Yes Guide to Cardiac Rehab Given to Patient:: Yes Cardiac Rehab Facility Choice List Given to Patient:: Yes Communication to Cardiac Rehab Choice Program [facility] PHII:: Communication Given to CR Coding Specialist Home Health:: [facility] Sessions:: 36 sessions - 3 days/wk, 12 weeks Medical/Surgical History Medical History MD:: No Angina:: Yes CAD:: Yes Congestive Heart Failure: Cardiomyopathy:: No Valve Disease/Replacement:: No Pulmonary:: No COPD:: No Asthma:: No HANNY:: No Diabetes:: No Diabetes Type I:: No Diabetes Type II:: No Hypertension:: No Dyslipidemia:: No Arrhythmias:: No EPS:: No CVA/TIA: CEA:: No PE:: No DVT:: No PVD:: No PAD:: No Arthritis:: No GI:: No GERD:: Yes Cancer:: No Renal:: No Thyroid:: No Depression:: No Anxiety:: Yes Surgical History CABG: No PTCA:: Yes ICD:: No Pacemaker:: No Orthopedic:: No Cardiac Rehabilitation Info Program Information Cardiac Rehabilitation Program Information: Cardiac Rehab The cardiac rehab team at [facility] consists of highly skilled exercise physiologists, nurses, respiratory therapists and physicians working together with you. Our purpose is to help you have a full recovery and achieve the goals you set for yourself. Over the years many of our patients have returned to activities they assumed they would never do again! We can help restore your confidence and motivation to make lifestyle changes that can have a significant impact on your health and quality of life! We can help answer questions and concerns you may have about exercise, lifestyle, medications, diet, stress and anxiety which are common following a hospitalization. WE monitor ECG and vital signs during exercise and discuss your progress with you and report to your physician(s). Cardiac Rehab is proven to help reduce readmissions, improve functional capacity and lower recurrence of problems with your heart. Our Cardiac Rehab program is Certified by the [place] [employer] Pulmonary [employer] (AACVPR) and Accredited by the [place] [employer] through our [facility]. You can contact us at . We invite you to call us with your questions or to get started in our program. If you have other questions or concerns be sure to ask your physician/provider during your follow-up visit. WE look forward to seeing you!
--- NOTE | 2024-03-14 13:46 | CRPH1.INSTRU ---
General Education Discussed with Patient CAD and cardiac anatomy and function:: Patient communicates acknowledgment Explanation of diagnoses and procedures:: Patient communicates acknowledgment Sign/Symptoms of TN:: Patient communicates acknowledgment Antiplatelet therapy: Patient communicates acknowledgment and Family communicates acknowledgment Proper use of NTG-SL: Patient communicates acknowledgment Emergency procedures and activation of EMS: Patient communicates acknowledgment Compliance of all prescribed medications: Patient communicates acknowledgment Smoking Response Code Nicotine/Smoking Response Code:: Not instructed Dyslipidemia Risk Factors Patient Dyslipidemia Risk Factors Are:: Total Cholesterol Recommendations Recommendations Include:: Lipid profile not available Response Code Dyslipidemia Response Code:: Patient communicates acknowledgment Overweight/Obesity Risk Factors Patient Overweight/Obesity Risk Factors Are:: Obesity - > or = 30 Recommendations Recommendations Include:: Reduced calorie diet Response Code Overweight/Obesity:: Patient communicates acknowledgment Hypertension Recommendations Recommendations Include:: Maintain BP <130/85 Response Code Hypertension:: Patient communicates acknowledgment Heart Disease Risk Factors Patient Heart Disease Risk Factors Are:: Previous cardiac event Recommendations Recommendations Include:: Educated family members of their risk Response Code Heart Disease Response Code:: Patient communicates acknowledgment Diabetes Risk Factors Patient Diabetes Risk Factors Are:: No documented hx of diabetes Metabolic Syndrome Response Code Metabolic Syndrome Response Code:: Not instructed Sedentary Risk Factors Patient Sedentary Risk Factors Are:: Lack of regular exercise Recommendations Recommendations Include:: Benefits of regular exercise and Monitored Outpatient Cardiac Rehab Response Code Sedentary Response Code:: Patient communicates acknowledgment Stress Recommendations Recommendations Include:: Identification of stressors, and assessment of coping skills and Stress management techniques Response Code Stress Response Code:: Patient communicates acknowledgment
[2024-03-14] MEDS: Aspirin 81 MG TAB.CHEW PO (14:15)
[2024-03-14] MEDS: 0.9% Saline Lock 10 ML Syringe IV (14:15)
[2024-03-14] MEDS: 0.9% Normal Saline (1000mL) 1,000 ML 75 ML IV (14:15)
--- NOTE | 2024-03-14 15:24 | CL.I_ITS ---
Patient Name: SADIA CLEVELAND Study Date: 03/14/2024 Performing: Jose Samuels MD Ht: 74 inches 187.96 cm : 1970 Wt: 259.3 lbs 117.48 kg Age: 54 Gender: male BSA: 2.43 PROCEDURE(S) PERFORMED IC12-([id number])GOPI W/WO PTCA, SINGLE CORONARY ARTERY CLINICAL PROFILE AND CO-MORBIDITIES Indications: Suspected CAD Heart Failure: None Stress/Imaging Stress Echocardiogram: Yes Result: Positive High Risk Stress Echocardiogram: Positive High Risk CAD Presentations: Stable angina. CONCLUSIONS Successful PCI of proximal LAD/diagonal 1 bifurcation with drug-eluting stent to the LAD. RECOMMENDATIONS DESCRIPTION OF PROCEDURE The patient arrived to the procedure lab. The risks and benefits of the procedure as well as a full description of our services here and current unavailability of surgical backup were fully explained to the patient and/or their significant other prior to the catheterization. The Timeout was completed, verifying the correct patient and procedure. The patient's procedural site was prepped and draped in the usual fashion. Local anesthetic was given subcutaneously to right radial region with Lidocaine 2% Using a modified Seldinger technique,arterial access was obtained via the right radial artery, a 6Fr sheath was inserted. Right Coronary Artery selective angiography was then performed in multiple views using a 5 Fr. 4.0 [place] catheter. Left Coronary Artery selective angiography was performed in multiple views using a 5 Fr. 4.0 [place] catheter. Left Ventriculography was performed in ALMANZAR projection using a 5 Fr. Pigtail catheter. LV to AO pullback pressures were then recorded.The images were reviewed and options discussed. A decision was then made to proceed with an Intervention, IVUS or other adjunct procedure. XB 3.0 Guide catheter was inserted and engaged into the LCA. Runthrough Guide wire was advanced to the 1st Diagonal. BMW Guide wire was advanced to the LAD. 2.25 x 20 [place] Balloon catheter was inserted. Balloon catheter was advanced across lesion in the LAD, proximal. PTCA balloon inflated at 10 atms for 23 secs. 2.5 x 30 [place] Drug Eluting stent was inserted. Drug Eluting stent was advanced across the lesion in the LAD, proximal. Angiogram performed post stent deployment. Runthrough Guide wire was advanced to the 1st Diagonal. 1.2 x 15 Emerge Balloon catheter was inserted. Balloon catheter was advanced across lesion in the first diagonal, ostial. PTCA balloon inflated at 12 atms for 22 secs. PTCA balloon inflated at 20 atms for 18 secs. Angiogram performed post balloon dilatation. 1.5 x 15 Emerge Balloon catheter was advanced across lesion in the first diagonal, ostial. 2.5 x 20 [place] Emerge Balloon catheter was advanced across lesion in the LAD, proximal. PTCA balloon inflated at 10 atms for 30 secs. PTCA balloon inflated at 10 atms for 20 secs. Angiogram performed post balloon dilatation. The arterial sheath was pulled and a TR Band was applied for hemostasis INTERVENTION INFORMATION LESION SITE: LAD (Proximal) Lesion Complexity: High/C, chronic total occlusion: No, lesion at bifurcation: Yes, thrombus present: No, lesion length: 28 mm, culprit lesion: Yes, Previously treated lesion: No Pre Stenosis: 90 % Pre intervention YOGI flow: 3 PROCEDURE: Drug Eluting Stent with pre and post dilatation The stent was deployed jailing diagonal branch that was pinched after stent deployment. We were able to cross the stent struts and into the diagonal branch and perform kissing balloon inflation with a 1.5 mm balloon in the diagonal branch and 2.5 mm NC balloon in the LAD. There was excellent angiographic result. There were no complications. Post Stenosis: 0 % Post intervention YOGI flow: 3 Lesion Devices: Garcia .014 190cm BMW [place] Straight Cordis 6 Fr XB3.0 100cm Guide Catheter Terumo .014 180cm Runthrough Extra Floppy straight [employer] EMERGE MR 2.25x20 BALLOON Medtronic 2.50 x 30 JUAN FRONTIER GOPI [employer] EMERGE MR 1.20x15 BALLOON [employer] EMERGE MR 1.50x15 BALLOON [employer] NC EMERGE MR 2.50x20 BALLOON COMPLICATIONS No Complications PROCEDURE MEDICATIONS Versed 1 mg IV Fentanyl 50 mcg IV Versed 1 mg IV Fentanyl 25 mcg IV Versed 1 mg IV Versed 1 mg IV Oxygen: 2 L/min via nasal cannula Brilinta 180 mg PO @ 03/14/2024 11:36:40 Heparin given IA 03/14/2024 10:08:48 Heparin 6000 unit(s) IV 03/14/2024 11:39:33 Verapamil 2.5mg, Ntg 100mcgs, 3000 units of Heparin given IA 03/14/2024 10:08:48 SUMMARY OF HEMODYNAMIC DATA Time AIR REST ECG 08:50:29 AO 112/54 (70) SA 10:22:04 LV 113/16, 22 10:35:57 LV 115/16, 20 10:36:05 LV 113/16, 21 10:37:05 LVp 118/15, 23 10:37:12 AOp 120/77 (97) 10:37:20 AO 131/82 (103) 11:42:10 AIR REST 11:42:18 Signed By Jose Samuels MD On 03/14/2024 15:23:01 Jose Samuels MD
[2024-03-14] MEDS: Metoprolol(XL)Succ 50 MG Tablet PO (21:28)
[2024-03-14] MEDS: Atorvastatin Calcium 80 MG Tablet PO (21:29)
[2024-03-14] MEDS: TICAGRELOR 90 MG TABLET PO (21:29)
[2024-03-15 02:00] VITALS: BP 121/71; PULSE 77; RESP 16; TEMP 36.4; O2SAT 98
[2024-03-15 03:00] VITALS: BP 122/71; PULSE 77; RESP 16; TEMP 36.4; O2SAT 98
[2024-03-15 06:28] LABS: Hematocrit 42.9 % (40-54); Hemoglobin 14.5 g/dL (13.0-16.5); Mean Corp Hgb Conc 33.8 g/dL (32-36); Mean Corpuscular Hgb 29.9 pg (27.0-32.0); Mean Corpuscular Volume 88.5 fL (80-94); Mean Platelet Vol. 8.8 fl (6.2-12.0); Platelet Count 243 K/mm3 (150-450); RBC Distribution Width CV 12.5 % (11.6-14.6); RBC Distribution Width SD 40.6 fl (35.1-43.9); Red Blood Count 4.85 M/mm3 (4.6-6.2); White Blood Count 6.4 K/mm3 (4.4-11.0)
[2024-03-15 06:55] LABS: ALB/GLOB Ratio 0.9 RATIO (0.9-2.4); AST(SGOT) 16 U/L (15-37); Alanine Aminotransfer ALT/SGPT 43 U/L (16-61); Albumin, Serum 3.1 g/dL (3.2-5.0); Alkaline Phosphatase 59 U/L (45-117); Anion Gap 6 (5-15); BUN 12 mg/dL (7-18); Calcium,Total 8.8 mg/dL (8.5-10.1); Chloride 111 mmol/L (98-107); Creatinine, Serum 0.86 mg/dL (0.70-1.30); EST Glomerular Filtration Rate 98 mL/min (>60); Est Glom Filt Rate - Afr Amer 119 mL/min (>60); Estimated Creatinine Clearance 130.66 ml/min; Globulin 3.6 g/dL (2.2-4.2); Glucose 130 mg/dL (74-106); Potassium 3.9 mmol/L (3.5-5.1); Protein, Total 6.7 g/dL (6.4-8.2); Sodium Level 140 mmol/L (136-145)
--- NOTE | 2024-03-15 07:20 | PN.CARD_ITS ---
Subjective Subjective Patient seen and evaluated. Appears to doing well this morning. Objective Data Vital Signs: Vital Signs Temp Pulse Resp BP Pulse Ox O2 Del Method 97.5 F L 77 16 122/71 H 98 Room Air 03/15/24 03:00 03/15/24 03:00 03/15/24 03:00 03/15/24 03:00 03/15/24 03:00 03/15/24 03:00 Oxygen Delivery Method Room Air Weight: 259 lb Body Mass Index (BMI) 33.2 Intake & Output: Intake and Output for Last 24 Hours 03/13/24 03/14/24 03/15/24 23:59 23:59 23:59 Intake Total 1360 / 1360 Balance 1360 / 1360 Lab / Micro Data 03/15/24 05:33 03/15/24 05:33 Labs: Laboratory Results - last 24 hr 03/15/24 05:33: WBC 6.4, RBC 4.85, Hgb 14.5, Hct 42.9, MCV 88.5, MCH 29.9, MCHC 33.8, RDW Std Deviation 40.6, RDW Coeff of Elsa 12.5, Plt Count 243, MPV 8.8, Sodium 140, Potassium 3.9, Chloride 111 H, Carbon Dioxide 22.0, Anion Gap 6, BUN 12, Creatinine 0.86, Estim Creat Clear Calc 130.66, Est GFR (MDRD) Af Amer 119, Est GFR (MDRD) Non-Af 98, BUN/Creatinine Ratio 14.0, Glucose 130 H, Calcium 8.8, Total Bilirubin 0.40, AST 16, ALT 43, Alkaline Phosphatase 59, Total Protein 6.7, Albumin 3.1 L, Globulin 3.6, Albumin/Globulin Ratio 0.9 Cardiology Labs/Tests 03/15/24 05:33: WBC 6.4, RBC 4.85, Hgb 14.5, Hct 42.9, MCV 88.5, MCH 29.9, MCHC 33.8, Plt Count 243, MPV 8.8, Sodium 140, Potassium 3.9, Chloride 111 H, Carbon Dioxide 22.0, Anion Gap 6, BUN 12, Creatinine 0.86, Est GFR (MDRD) Af Amer 119, Est GFR (MDRD) Non-Af 98, BUN/Creatinine Ratio 14.0, Glucose 130 H, Calcium 8.8, Total Bilirubin 0.40 Rhythm: Normal sinus rhythm occasional PVCs EKG: ECHO: Stress Test: Cardiac Cath: PCI: CT Surgery: Holter monitor: EPS: PPM: CXR: Chest CT Scan: Physical Exam Const alert, oriented x3 and no apparent distress General Appearance: cooperative HEENT hearing grossly normal bilaterally Head and Scalp: atraumatic Eyes EOMs intact bilaterally Neck General: normal visual inspection Chest inspection of chest normal and palpation of chest normal Resp normal respiratory effort Auscultation: clear to auscultation bilaterally Cardio regular rate, regular rhythm, S1 normal heart sound and S2 normal heart sound Jugular Venous Distention: JVD GI normal to inspection, nondistended, normoactive bowel sounds Extremity normal capillary refill and no pedal edema Peripheral Pulses: Yes pulses 2+ throughout and femoral pulses present Skin no rashes or lesions noted Neuro oriented x3 and CN's II-XII intact bilaterally Psych Appearance: grossly normal and appropriate Assessment & Plan Assessment/Plan (1) Abnormal stress echocardiogram: PLAN: Patient had an abnormal stress echocardiogram underwent cardiac catheterization with demonstrated high-grade proximal to mid LAD lesion for which she underwent angioplasty and stenting. The diagonal vessel was angioplastied. He did well overnight with no chest pain or shortness of breath and no rhythm abnormalities. He will be discharged for outpatient follow-up and cardiac rehabilitation (2) Paroxysmal atrial fibrillation: PLAN: He does have a history of paroxysmal atrial fibrillation. The plan will be for him to remain on the beta-marisa. The flecainide will be discontinued on account of his newly discovered coronary artery disease. (3) Hyperlipidemia: QUALIFIERS: Hyperlipidemia type: unspecified Qualified Code(s): E 78.5 - Hyperlipidemia, unspecified PLAN: He will go on high intensity statin for secondary risk factor modification. PLAN: Plan He can be discharged for follow-up in the office and to resume work in a week.
--- NOTE | 2024-03-15 07:25 | DCINST_ITS ---
Discharge Instructions Diet Discharge Diet: No restrictions (You may continue your normal diet.) Activity Discharge Activity: Return to Normal Activity Lifting Restrictions: 10 pounds and also avoid any pushing or pulling for 3 days after your test. Additional Activity Instructions:: You must have someone drive you home. Do not drive until instructed by your doctor. You must have someone stay with you all night after your test. Rest in bed or on the couch until the next morning. Limit the number of times you go up and down stairs the day of your test. Apply pressure to the puncture site if you sneeze or cough. Dressing / Incision Call your doctor if your incision/area has: Increased Pain/ Swelling, Increased Redness, Foul Smelling Discharge and Swelling at the incision site Call your doctor if you observe: Fever of 101 or Higher Additional Dressing/Incision Instructions:: Keep the dressing (bandage) on until the next morning. You may then shower, but do not take a tub bath for 5 days after your test. It is normal to have some tenderness and discomfort at the puncture site. Sometimes bruising also occurs. However, if pain, numbness, or coldness occurs below the puncture site (in your leg, toes, arms or fingers) call your doctor at once. You may have a small, marble sized knot at the puncture site. This is normal. Do not rub it. It will go away in 4-6 weeks. Bleeding can occur from the area where the puncture was done. Blood may spurt or drip from the site. If blood spurts, apply pressure right away to stop bleeding and call 911. Although rare, bleeding into the tissue (hematoma) can also occur. If this happens, a large, firm area goose egg under the skin will appear. If any of these occur, lie down as flat as you can and have someone apply firm pressure to the cath site with a gauze pad or a clean washcloth for 10-15 minutes. Call 911 or go to the Emergency Department. Follow Up Care When: Office will call you for follow-up Test Results: Test results from this visit will be discussed in further detail at your follow- up appointment, if applicable. Discharge Plan Admission Admit Date/Time: 03/14/24 12:36 Attending Provider: Logan Samuels Primary Care Provider: Bhupendra Jurado Discharge Orders/Prescriptions Prescriptions: New atorvastatin 80 mg Tablet 80 mg PO QHS Qty: 180 2RF Brilinta 90 mg Tablet 90 mg PO BID 180 Days Qty: 360 2RF Continued metoprolol succinate [Toprol XL] 50 mg tablet extended release 24 hr 50 mg PO BID Qty: 180 3RF metoprolol tartrate 25 mg tablet 25 mg PO .PRN PRN (Reason: for breakthrough arrythmia) Qty: 14 0RF aspirin 81 mg tablet,chewable 81 mg PO ONCE Qty: 7 0RF Discontinued flecainide 100 mg tablet 100 mg PO Q12H Qty: 180 3RF Referrals / Follow Up: Bhupendra Jurado MD [Primary Care Provider] - Disposition Disposition (needs filled in before D/C Order can be placed): Home, Self Care
[2024-03-15 08:30] VITALS: BP 141/84; PULSE 65; RESP 12; TEMP 36.6; O2SAT 96
[2024-03-15 08:34] VITALS: PULSE 65
[2024-03-15] MEDS: Metoprolol(XL)Succ 50 MG Tablet PO (08:34)
[2024-03-15] MEDS: TICAGRELOR 90 MG TABLET PO (08:34)
--- NOTE | 2024-03-15 09:34 | CASEMGMT ---
ANA GUZMAN reviewed DC order, pt was ordered new prescription for Brilinta. ANA GUZMAN called pharmacy, spoke with Victor Manuel, stated cost for pt is $429. ANA GUZMAN into pt room, provided pt with Brilinta savings card. Instructed pt to follow up with doctor at follow up appointment to discuss cost and see if provider can order something more affordable for pt once Brilinta prescription is finished. Pt verbalized understanding and denies any questions or concerns at this time.
--- NOTE | 2024-03-15 10:00 | EKG12_ITS ---
Test Reason : POST PCI Blood Pressure : / mmHG Vent. Rate : 068 BPM Atrial Rate : 068 BPM P-R Int : 164 ms QRS Dur : 082 ms QT Int : 436 ms P-R-T Axes : 012 -03 -01 degrees QTc Int : 463 ms Sinus rhythm with occasional Premature ventricular complexes Minimal voltage criteria for LVH, may be normal variant ( R in aVL ) Borderline ECG Confirmed by JOSÉ MIGUEL MARTINEZ MD ([id number]), editor school photograph PENNY SAVAGE ([id number]) on 03/16/2024 10:57:08 AM Referred By: José Miguel Martinez Confirmed By:JOSÉ MIGUEL MARTINEZ MD
== END 2024-03-15 07:25 | disposition home or self-care (01) ==
LOC: CLSP 12:51 → PCU 12:51
PROVIDERS: Nurse Practitioner Family; Admitting Provider Specialist; PCP Family Medicine; Referring Provider Internal Medicine Cardiovascular Disease; Visit Provider Specialist
DX: I25.118 Atherosclerotic heart disease of native coronary artery with other forms of angina pectoris (principal); I48.0 Paroxysmal atrial fibrillation; E78.5 Hyperlipidemia, unspecified; R94.39 Abnormal result of other cardiovascular function study; Z79.899 Other long term (current) drug therapy
CPT/HCPCS: 36415; 71046; 80048; 80053; 85025; 85027; 92928; 93005; 93458; 96360; 96361; 99152; 99153; 99221; J7030; J7040; Q9967; A4216; C1725; C1769; C1874; C1887; C1894; C9600; G0378; J1327

== ENCOUNTER 2024-06-04 19:27 | Emergency (ER) | payer OTHER, SELFPAY ==
[2024-06-04] VITALS (13 sets, daily range): BP systolic 103–119; BP diastolic 67–97; PULSE 70–179; RESP 18; TEMP 36.6–36.8; O2SAT 94–97; BMI 34.3
--- NOTE | 2024-06-04 19:37 | ED.VIS.CHEST ---
HPI History of Present Illness Chief Complaint: Palpitations Informant: patient Onset/Context/Timing Onset: Today (6 PM about an hour and a half ago.) and Hours Activity at onset: sudden Timing: Continuous Narrative Narrative: 54-year-old male history of CAD with a stent. History of A-fib on metoprolol, aspirin and Plavix. About 6 PM tonight he suddenly went into A-fib. Denies chest pain. His heart rates been 150+. Its now been about an hour and a half. He took metoprolol earlier today and took an extra 50 mg shortly after he went into A-fib. His rate has not really improved. Prior Similar Symptoms: Yes Recent Illness/Hospitalization: No CVD Risk Factors: Negative for Hypertension, Diabetes or Smoking PE Risk Factors: Negative for Recent Travel/Surgery, Recent Immobilization, Prior DVT or PE, Cancer or OCP + Smoking + >/=35 TAD Risk Factors: Negative for Marfan's Syndrome PFSH PFS Medical History Arteriosclerotic cardiovascular disease Colonoscopy planned Atrial fibrillation with rapid ventricular response (04/07/21) Obesity New onset atrial fibrillation (02/02/19) Paroxysmal atrial fibrillation Depression Hyperlipidemia Diverticulitis Herpes Insomnia Home Medications ?Medication ?Instructions ?Recorded ?Last Taken ?Type metoprolol succinate 50 mg 50 mg PO BID blood pressure #180 12/08/23 Unknown Rx tablet,extended release 24 hr tabs (Toprol XL) metoprolol tartrate 25 mg tablet 25 mg PO .PRN PRN for breakthrough 12/08/23 Unknown Rx arrythmia #14 tabs aspirin 81 mg chewable tablet 81 mg PO ONCE heart health #7 tabs 02/28/24 03/14/24 Rx atorvastatin 80 mg tablet 80 mg PO QHS #180 tabs 03/15/24 Unknown Rx clopidogrel 75 mg tablet (Plavix) 75 mg PO QDAY #90 tabs 03/31/24 Unknown Rx Allergy/AdvReac Type Severity Reaction Status Date / Time No Known Allergies Allergy Verified 06/04/24 19:27 Family History Father Cancer Grandmother No problems noted. Grandfather Cancer Surgical History Stented coronary artery (03/14/24) History of cardioversion (04/07/21) History of open sigmoidectomy Social History Smoking Status: Never smoker Smokeless tobacco user: other alcohol intake: current caffeine: Yes Type: coffee Number of servings: 2 ROS ROS ED ROS Narrative Denies recent illness. Constitutional Constitutional ED: Denies chills or fever(s) Eyes Eyes: Reports none ENT ENT ED: Denies ear pain Cardiovascular Cardiovascular: Reports palpitations and racing heartbeat; Denies chest pain Respiratory/Chest Respiratory/Chest: Denies cough or dyspnea Gastrointestinal Gastrointestinal: Denies abdominal pain Genitourinary Genitourinary ED: Denies dysuria Musculoskeletal Musculoskeletal: Denies arthralgias Integumentary Denies abscess Neurologic Neurologic: Denies headache(s) or paresthesias Psychiatric Psychiatric: Denies anxiety or depression Endocrine Endocrinology: Denies cold intolerance Hematologic/Lymphatic Hematologic/Lymphatic: Denies lymphadenopathy Allergic/Immunologic Allergic/Immunologic ED: Denies mouth swelling EXAM Physical Exam Narrative Exam Narrative: 54-year-old male A-fib RVR on the monitor rate about 152 on my exam. Vital signs are afebrile. His heart rate in triage was 179. He is tolerating it well. He is accompanied by his and son. H EENT exam unremarkable. Neck nontender. Lungs clear to auscultation bilaterally. Heart A-fib RVR rate 150s. Chest wall nontender. Abdomen soft nontender. Moving all 4 extremities. Chronic trace edema lower extremities. Normal strength. Normal range of motion. Back nontender. He is awake and alert. No focal motor deficits. Const Vital Signs: 06/04/24 19:27 06/04/24 19:34 06/04/24 20:26 Temperature 97.8 F Temperature Source Temporal Pulse Rate 179 H Pulse Rate [1 (Initial Baseline)] Pulse Rate [2] Pulse Rate [3] Pulse Rate [4] Pulse Rate [5] Pulse Rate [6] Respiratory Rate 18 Respiratory Rate [1 (Initial Baseline)] Respiratory Rate [2] Respiratory Rate [3] Respiratory Rate [4] Respiratory Rate [5] Respiratory Rate [6] Blood Pressure 119/97 H Blood Pressure [1 (Initial Baseline)] Blood Pressure [5] Blood Pressure [6] Blood Pressure Mean 104 Pulse Ox 95 95 Oxygen Delivery Method Room Air Oxygen Delivery Method [1 (Initial Baseline)] Oxygen Delivery Method [2] Oxygen Delivery Method [3] Oxygen Delivery Method [4] Oxygen Delivery Method [5] Oxygen Delivery Method [6] EtCo2 (Normal 35-45 , high quality CPR 10-20 & ROSC>/=40mmHg 28 EtCo2 (Normal 35-45 , high quality CPR 10-20 & ROSC>/=40mmHg [1 (Initial Baseline)] EtCo2 (Normal 35-45 , high quality CPR 10-20 & ROSC>/=40mmHg [2] EtCo2 (Normal 35-45 , high quality CPR 10-20 & ROSC>/=40mmHg [3] EtCo2 (Normal 35-45 , high quality CPR 10-20 & ROSC>/=40mmHg [4] EtCo2 (Normal 35-45 , high quality CPR 10-20 & ROSC>/=40mmHg [5] EtCo2 (Normal 35-45 , high quality CPR 10-20 & ROSC>/=40mmHg [6] 06/04/24 20:30 06/04/24 20:55 06/04/24 20:58 Temperature 98.2 F Temperature Source Pulse Rate 124 H 140 H Pulse Rate [1 (Initial Baseline)] 140 H Pulse Rate [2] 114 H Pulse Rate [3] 126 H Pulse Rate [4] 75 Pulse Rate [5] 71 Pulse Rate [6] 70 Respiratory Rate 18 18 Respiratory Rate [1 (Initial Baseline)] 18 Respiratory Rate [2] 18 Respiratory Rate [3] 18 Respiratory Rate [4] 18 Respiratory Rate [5] 18 Respiratory Rate [6] 18 Blood Pressure 104/74 108/73 Blood Pressure [1 (Initial Baseline)] 108/73 Blood Pressure [5] 110/70 Blood Pressure [6] 107/67 Blood Pressure Mean 84 Pulse Ox 94 94 Oxygen Delivery Method Room Air Room Air Oxygen Delivery Method [1 (Initial Baseline)] Room Air Oxygen Delivery Method [2] Room Air Oxygen Delivery Method [3] Room Air Oxygen Delivery Method [4] Room Air Oxygen Delivery Method [5] Room Air Oxygen Delivery Method [6] Room Air EtCo2 (Normal 35-45 , high quality CPR 10-20 & ROSC>/=40mmHg 20 EtCo2 (Normal 35-45 , high quality CPR 10-20 & ROSC>/=40mmHg [1 (Initial Baseline)] 30 EtCo2 (Normal 35-45 , high quality CPR 10-20 & ROSC>/=40mmHg [2] 30 EtCo2 (Normal 35-45 , high quality CPR 10-20 & ROSC>/=40mmHg [3] 30 EtCo2 (Normal 35-45 , high quality CPR 10-20 & ROSC>/=40mmHg [4] 30 EtCo2 (Normal 35-45 , high quality CPR 10-20 & ROSC>/=40mmHg [5] 30 EtCo2 (Normal 35-45 , high quality CPR 10-20 & ROSC>/=40mmHg [6] 30 06/04/24 21:00 06/04/24 21:04 06/04/24 21:09 Temperature Temperature Source Pulse Rate 126 H Pulse Rate [1 (Initial Baseline)] Pulse Rate [2] Pulse Rate [3] Pulse Rate [4] Pulse Rate [5] Pulse Rate [6] Respiratory Rate 18 Respiratory Rate [1 (Initial Baseline)] Respiratory Rate [2] Respiratory Rate [3] Respiratory Rate [4] Respiratory Rate [5] Respiratory Rate [6] Blood Pressure 108/73 Blood Pressure [1 (Initial Baseline)] Blood Pressure [5] Blood Pressure [6] Blood Pressure Mean 84 Pulse Ox 96 Oxygen Delivery Method Room Air Room Air Room Air Oxygen Delivery Method [1 (Initial Baseline)] Oxygen Delivery Method [2] Oxygen Delivery Method [3] Oxygen Delivery Method [4] Oxygen Delivery Method [5] Oxygen Delivery Method [6] EtCo2 (Normal 35-45 , high quality CPR 10-20 & ROSC>/=40mmHg 30 32 EtCo2 (Normal 35-45 , high quality CPR 10-20 & ROSC>/=40mmHg [1 (Initial Baseline)] EtCo2 (Normal 35-45 , high quality CPR 10-20 & ROSC>/=40mmHg [2] EtCo2 (Normal 35-45 , high quality CPR 10-20 & ROSC>/=40mmHg [3] EtCo2 (Normal 35-45 , high quality CPR 10-20 & ROSC>/=40mmHg [4] EtCo2 (Normal 35-45 , high quality CPR 10-20 & ROSC>/=40mmHg [5] EtCo2 (Normal 35-45 , high quality CPR 10-20 & ROSC>/=40mmHg [6] 06/04/24 21:14 06/04/24 21:19 06/04/24 21:24 Temperature Temperature Source Pulse Rate Pulse Rate [1 (Initial Baseline)] Pulse Rate [2] Pulse Rate [3] Pulse Rate [4] Pulse Rate [5] Pulse Rate [6] Respiratory Rate Respiratory Rate [1 (Initial Baseline)] Respiratory Rate [2] Respiratory Rate [3] Respiratory Rate [4] Respiratory Rate [5] Respiratory Rate [6] Blood Pressure Blood Pressure [1 (Initial Baseline)] Blood Pressure [5] Blood Pressure [6] Blood Pressure Mean Pulse Ox Oxygen Delivery Method Room Air Room Air Room Air Oxygen Delivery Method [1 (Initial Baseline)] Oxygen Delivery Method [2] Oxygen Delivery Method [3] Oxygen Delivery Method [4] Oxygen Delivery Method [5] Oxygen Delivery Method [6] EtCo2 (Normal 35-45 , high quality CPR 10-20 & ROSC>/=40mmHg 30 31 30 EtCo2 (Normal 35-45 , high quality CPR 10-20 & ROSC>/=40mmHg [1 (Initial Baseline)] EtCo2 (Normal 35-45 , high quality CPR 10-20 & ROSC>/=40mmHg [2] EtCo2 (Normal 35-45 , high quality CPR 10-20 & ROSC>/=40mmHg [3] EtCo2 (Normal 35-45 , high quality CPR 10-20 & ROSC>/=40mmHg [4] EtCo2 (Normal 35-45 , high quality CPR 10-20 & ROSC>/=40mmHg [5] EtCo2 (Normal 35-45 , high quality CPR 10-20 & ROSC>/=40mmHg [6] Positive well nourished and well developed; Negative for cachectic, contractures or unkempt General Appearance ED: well developed; Negative for unkempt, cachectic, contractures or pallor Nutritional Appearance: Negative for cachectic HEENT Reports moist mucous membranes normocephalic and atraumatic; Negative for trauma or tenderness Eyes PERRL and EOMs intact bilaterally General Eye ED: Negative for pale conjunctiva or scleral icterus Neck no lymphadenopathy, supple and no JVD General: Negative for tenderness Chest Wall inspection of chest normal and palpation of chest normal Resp normal respiratory effort and clear to auscultation bilaterally Cardio S1 normal heart sound, S2 normal heart sound and no murmurs; Negative for regular rate or regular rhythm Rate: tachycardic Rhythm: abnormal rhythm irregularly irregular GI normal to inspection, nondistended, normoactive bowel sounds, soft to palpation, non-tender, non-distended and no masses Back/Spine no CVA tenderness and no thoracic nor lumbar tenderness General Back: Negative for CVA tenderness Cervical Spine: Negative for cervical spine tenderness Extremity normal to inspection General Extremety ED: Negative for edema or pulses abnormal General Extremity: Negative for edema or pulses abnormal Neuro oriented x3 and CN's II-XII intact bilaterally Sensorium / Orientation: awake, alert, oriented to person, oriented to place and oriented to time; Negative for confused, lethargic or stuporous Motor Exam: strength 5/5 throughout Psych mental status grossly normal Appearance: Negative for unkempt Mood & Affect: anxious; Negative for depressed or tearful Skin no rashes or lesions noted and no wounds General Skin Exam: Negative for jaundice or pallor Rashes: No rashes noted Trauma: Negative for abrasion, laceration or puncture MDM MDM MDM Narrative Medical decision making narrative: 54-year-old male history of CAD with a stent. History of A-fib with RVR. On metoprolol at home. Took metoprolol x 2 today. Went in A-fib about 1 to 2 hours ago. Will treat with IV Cardizem. Cardiac workup. If need be he has been cardioverted in the past. He knows he 1 A-fib tonight at 6 PM. 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 Patient was given Cardizem IV. Initially his heart rate slowed to 95 to about 110. He was still in A-fib. Then he stately increased his rate and now is around 140. Patient I discussed options. He has had this several times before. He preferred to be cardioverted instead of trying additional Cardizem. He is try to prevent admission. He has been cardioverted twice before both successfully. His last food intake was 4 hours ago and he said was a small snack. We discussed procedural sedation with propofol which she has had in the past. And cardioversion. He and his family are comfortable plan. Patient was procedurally sedated with propofol 80 mg IV. And good procedural sedation. Was cardioverted using 360 J and on the first attempt went into a sinus rhythm immediately. Rate in the 70s. Repeat exam patient is doing well at 9:54 PM. He is awake alert. He is joking with his family. He wants to be discharged home. They are comfortable with the plan. 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 History & Record Review Discussion w/independent historian: Patient Additional record(s) reviewed:: Prior inpatient record, Prior outpatient record, Prior ED visit, Prior labs and No prior records Lab Data Attestation: I reviewed the patient's lab results. Lab results narrative: CBC normal. White count of 9. H&H 15 and 45. Platelets 287. Electrolytes show a gap of 7. Normal BUN of 17 creatinine 0.98. Glucose 113. Troponin 8. Chest x-ray unremarkable. EKG A-fib RVR. Labs: Laboratory Results - last 24 hr 06/04/24 19:35 WBC 9.0 RBC 5.20 Hgb 15.4 Hct 45.2 MCV 86.9 MCH 29.6 MCHC 34.1 RDW Std Deviation 39.0 RDW Coeff of Elsa 12.3 Plt Count 287 MPV 8.5 Immature Gran % (Auto) 0.200 Neut % (Auto) 54.0 Lymph % (Auto) 34.3 Perkins % (Auto) 8.9 Eos % (Auto) 2.0 Baso % (Auto) 0.6 Absolute Neuts (auto) 4.9 Absolute Lymphs (auto) 3.09 Nucleated RBC % 0 Sodium 141 Potassium 3.7 Chloride 112 H Carbon Dioxide 22.0 Anion Gap 7 BUN 17 Creatinine 0.98 Estim Creat Clear Calc 116.52 Est GFR (MDRD) Af Amer 102 Est GFR (MDRD) Non-Af 84 BUN/Creatinine Ratio 17.4 Glucose 113 H Calcium 9.3 Troponin I High Sens 8 Radiography Chest X-Ray - ED: 1 View, Read by ED Physician, Normal, Heart, Lungs, Mediastinum, Bony Structures, No Acute Disease and Chronic Changes Diagnostic Testing: Clinical Impression(s) from Imaging Studies Chest X-Ray 06/04/24 19:40 IMPRESSION: No radiographic evidence of acute cardiopulmonary disease. Electronically Signed: Mitali Shea MD at 20:23 EST Reading Location ID and State: [id number] / Tel , Service support , Chest x-ray, portable, single view interpreted by myself shows no acute abnormality. Normal cardiac silhouette. Normal lung roche. Normal mediastinum. Rhythm Strip Rhythm Strip: A-fib Rate: 142 EKG Initial EKG: Attestation: I personally reviewed and interpreted this EKG as follows: Interpretation: Atrial Fibrillation Comments: A-fib RVR rate of 142. No acute signs of ST elevation. Rate dependent ST depression. Follow-up EKG: Attestation: I personally reviewed and interpreted this EKG as follows: Interpretation: Sinus Rhythm and No Acute Injury Pattern Comments: After cardioversion. Normal sinus rhythm rate of 72 no acute signs of HI or ischemia. A-fib resolved. Procedures Procedural Sedation 1 (Initial Baseline): Consent Signed: Yes Any Problems With Anesthesia: No You/Your family experience fever (hyperthermia) w/anesthesia: No Sedation medication: Propofol Dose: 80 Route: IV Total Moderate Sedation Units: 20 Maliampati Score: Class II ASA Classification: I Comment:: A-fib RVR. Treated with propofol 80 mg IV. Had appropriate procedural sedation. Was cardioverted using 360 J. Immediately went into a sinus rhythm. He is being observed. Vital signs remained stable as his pulse ox. Discharge Plan Triage Chief Complaint: Palpitations ED Provider: Roscoe Winn Dx/Rx/DC Orders Clinical Impression: Atrial fibrillation with rapid ventricular response, Atrial fibrillation status post cardioversion, History of CAD (coronary artery disease) Instructions: ED AFIB Prescriptions: No Action metoprolol succinate [Toprol XL] 50 mg tablet extended release 24 hr 50 mg PO BID Qty: 180 3RF metoprolol tartrate 25 mg tablet 25 mg PO .PRN PRN (Reason: for breakthrough arrythmia) Qty: 14 0RF clopidogrel [Plavix] 75 mg tablet 75 mg PO QDAY Qty: 90 3RF Rx Instructions: Take 4 pills on day then, then once a day atorvastatin 80 mg Tablet 80 mg PO QHS Qty: 180 2RF aspirin 81 mg tablet,chewable 81 mg PO ONCE Qty: 7 0RF Primary Care Provider: Bhupendra Jurado Referrals: José Miguel Martinez MD [Med Staff - Active Staff] - As Needed Bhupendra Jurado MD [Primary Care Provider] - Activity Restrictions/Additional Instructions: No driving until Thursday. Continue your current medications. 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 Return if worse. Print Language: Estonian Disposition Disposition: Home, Self Care
[2024-06-04] MEDS: LORazepam 2 MG/ML Syringe 1 MG IV (19:39)
[2024-06-04] MEDS: dilTIAZem 25 MG/5 ML Vial IV BOLUS (19:39)
--- NOTE | 2024-06-04 19:40 | RAD_ITS ---
INDICATION: chest pain EXAMINATION/TECHNIQUE: X-RAY - XR Chest 1 View COMPARISON: 03/09/2024. FINDINGS: LINES/DEVICES: None. LUNGS: No consolidation, edema or effusion. No pneumothorax. MEDIASTINUM AND CARDIOVASCULAR STRUCTURES: Cardiac silhouette not enlarged. Central airways and mediastinal contour are unremarkable. BONES AND SOFT TISSUES: Unremarkable. RAD/Chest 1 View (Portable) IMPRESSION: No radiographic evidence of acute cardiopulmonary disease. Electronically Signed: Mitali Shea MD at 20:23 EST Reading Location ID and State: [id number] / Tel , Service support ,
[2024-06-04 19:42] LABS: Absolute Lymphocyte Count 3.09 X10^3/uL (0.83-4.51); Absolute Neutrophil Count 4.9 X10^3/uL (2.0-7.7); Basophil# 0.05 X10^3/uL; Basophil% 0.6 % (0-1); Eosinophil# 0.18 X10^3/uL; Hematocrit 45.2 % (40-54); Hemoglobin 15.4 g/dL (13.0-16.5); Lymphocyte # 3.09 X10^3/ul (0.83-4.51); Lymphocyte % 34.3 % (19-41); Mean Corp Hgb Conc 34.1 g/dL (32-36); Mean Corpuscular Hgb 29.6 pg (27.0-32.0); Mean Corpuscular Volume 86.9 fL (80-94); Mean Platelet Vol. 8.5 fl (6.2-12.0); Monocyte% 8.9 % (0-10); NRBC Flagged by Analyzer 0 % (0-5); Neutrophil # 4.87 X10^3/uL (2.7-7.7); Platelet Count 287 K/mm3 (150-450); RBC Distribution Width CV 12.3 % (11.6-14.6)
--- NOTE | 2024-06-04 19:45 | EKG12_ITS ---
Test Reason : A FIB Blood Pressure : */* mmHG Vent. Rate : 142 BPM Atrial Rate : * BPM P-R Int : * ms QRS Dur : 90 ms QT Int : 298 ms P-R-T Axes : * 18 208 degrees QTcB Int : 458 ms Critical Test Result: High HR Atrial fibrillation with rapid ventricular response Nonspecific ST and T wave abnormality Abnormal ECG Confirmed by SHARON CARRIZALES, RAYMUNDO ([id number]), editor farm journal VALENTE GILLILAND ([id number]) on 06/06/2024 7:07:06 AM Referred By: RAPHAEL Confirmed By: RAYMUNDO HERRERA MD
[2024-06-04 20:07] LABS: Anion Gap 7 (5-15); BUN 17 mg/dL (7-18); BUN/Creat Ratio 17.4 RATIO (10-20); Calcium,Total 9.3 mg/dL (8.5-10.1); Chloride 112 mmol/L (98-107); Creatinine, Serum 0.98 mg/dL (0.70-1.30); EST Glomerular Filtration Rate 84 mL/min (>60); Est Glom Filt Rate - Afr Amer 102 mL/min (>60); Estimated Creatinine Clearance 116.52 ml/min; Glucose 113 mg/dL (74-106); Potassium 3.7 mmol/L (3.5-5.1); Sodium Level 141 mmol/L (136-145); Troponin-I HS 8 pg/mL (3.0-78.0)
[2024-06-04] MEDS: Propofol 200 MG/20 ML Vial 80 MG IV BOLUS (21:00)
--- NOTE | 2024-06-04 21:06 | EKG12_ITS ---
Test Reason : RYTHM CHANGE Blood Pressure : */* mmHG Vent. Rate : 72 BPM Atrial Rate : 72 BPM P-R Int : 174 ms QRS Dur : 94 ms QT Int : 394 ms P-R-T Axes : 20 9 20 degrees QTcB Int : 431 ms Normal sinus rhythm Normal ECG Confirmed by SHARON CARRIZALES, RAYMUNDO ([id number]), editor index VALENTE GILLILAND ([id number]) on 06/06/2024 7:09:47 AM Referred By: RAPHAEL Confirmed By: RAYMUNDO HERRERA MD
== END 2024-06-04 22:07 | disposition home or self-care (01) ==
PROVIDERS: Emergency Provider Emergency Medicine; PCP Family Medicine; Visit Provider Emergency Medicine
DX: I48.91 Unspecified atrial fibrillation (principal); I25.10 Atherosclerotic heart disease of native coronary artery without angina pectoris; Z79.82 Long term (current) use of aspirin; Z79.899 Other long term (current) drug therapy; Z79.02 Long term (current) use of antithrombotics/antiplatelets; Z95.5 Presence of coronary angioplasty implant and graft
CPT/HCPCS: 71045; 80048; 84484; 85025; 92960; 93005; 96374; 96376; 99284; A4216

== ENCOUNTER 2024-12-10 00:41 | Emergency (ER) | payer OTHER, SELFPAY ==
[2024-12-10] VITALS (14 sets, daily range): BP systolic 101–129; BP diastolic 55–84; PULSE 74–146; RESP 16–28; TEMP 36.6–36.8; O2SAT 95–100; BMI 33.1
[2024-12-10 00:55] LABS: Absolute Lymphocyte Count 3.03 X10^3/uL (0.83-4.51); Absolute Neutrophil Count 4.2 X10^3/uL (2.0-7.7); Basophil# 0.04 X10^3/uL; Basophil% 0.5 % (0-1); Eosinophil# 0.15 X10^3/uL; Eosinophils% 1.8 % (0-5); Hematocrit 43.9 % (40-54); Hemoglobin 15.1 g/dL (13.0-16.5); Lymphocyte # 3.03 X10^3/ul (0.83-4.51); Lymphocyte % 36.2 % (19-41); Mean Corp Hgb Conc 34.4 g/dL (32-36); Mean Corpuscular Hgb 29.7 pg (27.0-32.0); Mean Corpuscular Volume 86.4 fL (80-94); Mean Platelet Vol. 8.8 fl (6.2-12.0); Monocyte# 0.89 X10^3/uL; Monocyte% 10.6 % (0-10); NRBC Flagged by Analyzer 0 % (0-5); Neutrophil # 4.22 X10^3/uL (2.7-7.7); Neutrophil % 50.4 % (47-70); Platelet Count 270 K/mm3 (150-450); RBC Distribution Width CV 12.8 % (11.6-14.6); Red Blood Count 5.08 M/mm3 (4.6-6.2)
[2024-12-10] MEDS: 0.9% Normal Saline (500mL Bag) 500 ML 999 ML IV (01:14)
[2024-12-10] MEDS: Ondansetron 4 MG/2 ML Vial IV (01:16)
[2024-12-10] MEDS: Lorazepam 2 MG/ML WCH Syringe 1 MG IV (01:22)
[2024-12-10 01:37] LABS: Anion Gap 12 (5-15); BUN 19 mg/dL (4-19); BUN/Creat Ratio 19.2 RATIO (10-20); Calcium,Total 9.5 mg/dL (7.6-11.0); Carbon Dioxide 22.3 mmol/L (21.0-32.0); Chloride 105 mmol/L (98-108); Creatinine, Serum 0.97 mg/dL (0.70-1.20); EST Glomerular Filtration Rate 92 (>60); Estimated Creatinine Clearance 115.66 ml/min (50-250); Glucose 107 mg/dL (70-99); Potassium 3.9 mmol/L (3.3-5.1); Sodium Level 140 mmol/L (133-145)
[2024-12-10 01:52] LABS: Troponin T High Sensitivity < 6 ng/L (<=22)
[2024-12-10] MEDS: Etomidate 20 MG/10 ML Vial 35 MG IV (02:23)
== END 2024-12-10 03:20 | disposition home or self-care (01) ==
PROVIDERS: Emergency Provider Emergency Medicine; PCP Family Medicine; Visit Provider Emergency Medicine
DX: I48.91 Unspecified atrial fibrillation (principal); E78.5 Hyperlipidemia, unspecified; I25.10 Atherosclerotic heart disease of native coronary artery without angina pectoris; R06.82 Tachypnea, not elsewhere classified; Z79.899 Other long term (current) drug therapy; Z79.82 Long term (current) use of aspirin; Z79.02 Long term (current) use of antithrombotics/antiplatelets; Z95.5 Presence of coronary angioplasty implant and graft
CPT/HCPCS: 71045; 80048; 84484; 85025; 92960; 93005; 96361; 96374; 96375; 96376; 99284; A4216; J2405

== ENCOUNTER 2024-12-25 21:46 | Emergency (ER) | payer OTHER, SELFPAY ==
[2024-12-25] VITALS (8 sets, daily range): BP systolic 105–150; BP diastolic 65–98; PULSE 76–132; RESP 16; TEMP 36.6–36.7; O2SAT 94–98; BMI 33.5
--- NOTE | 2024-12-25 21:50 | EKG12_ITS ---
Test Reason : DYSRHYTHMIA Blood Pressure : */* mmHG Vent. Rate : 104 BPM Atrial Rate : * BPM P-R Int : * ms QRS Dur : 94 ms QT Int : 340 ms P-R-T Axes : * 6 -31 degrees QTcB Int : 447 ms Atrial fibrillation with rapid ventricular response Nonspecific T wave abnormality Abnormal ECG Confirmed by Antoine Urias ([id number]), market editor PENNY SAVAGE ([id number]) on 12/26/2024 1:11:20 PM Referred By: DANIELE Confirmed By: Antoine Urias
--- OUTSIDE RECORDS SUMMARY | 2024-12-25 22:24 | XMS RPT_ITS | CCD ---
Author Organization [facility] Care Team Providers Care Air Filler Name Role Phone CLAUDIA SCANLON Attending Unavai lable MISC, DOCTOR Primary Care Unavailable KOURTNEY GRANDE Admitting Unavailable KOURTNEY GRANDE Attending Unavailable KOURTNEY GRANDE Primary Care Unavailable BHUPENDRA JURADO Consulting Unavailable PROVIDER, UNKNOWN Consulting Unavailable PROVIDER, UNKNOWN Consulting Unavailable PROVIDER, UNKNOWN Consulting Unavailable Bhupendra Jurado MD Unavailable Dr. Kourtney Grande MD. Unavailable Dr. Lucy Martinez MD Unavailable Dr. Keaton Jack MD Unavailable Dr. Benigno Quiñonez MD Unavailable Johnna Morrison MD Unavailable Cynthia Krishnan Unavailable Kervinert TRIMMER SAWYER, Leidy L Unavailable Unavailab le [place] TRIMMER SAWYER, Kerry E Unavailable Unavailable Omayra TRIMMER SAWYER, Imelda M Unavailable Unavailab le [place] TRIMMER SAWYER, Tata Mueller Unavailable Unavailab le Jessee TRIMMER SAWYER, Maliha N Unavailable Unavaila ble [place] TRIMMER SAWYER, Tameka K Unavailable Unavai lable Unavailable Unavailable Unavailable Primary Care Provider Unavailabl e Unavailable Primary Care Provider Unavailbertin e MARIBELL CHENG Referring Unavailable Dr. Bhupnedra Jurado MD Primary Care Provider Dr. Paolo Muñiz DO Emergency Provider Nicky AUTO FLEET MANAGER.Raghu LEMUS Unavailable José Miguel Martniez MD Unavailable Bhupendra Jurado MD Primary Care Provider JOHNNA DAVIS Attending Unavailable ROOF, RAGHU Eng Referring Unavailable BHUPENDRA JURADO VIRIDIANA Primary Care Unavailable Simran Carmen Attending Unavailable Adrien, Bhupendra Primary Care Unavailable Michelle, José Miguel Referring Unavailable Nagajothi, Nagapradee Admitting Unavailabl e Nagajothi, Nagapradee Attending Unavailabl e Bhupendra Jurado Primary Care Unavailable Roof PUBLIC WORKS INSPECTOR, Raghu Eng Attending Unavailable Bhupendra Jurado Referring Unavailable Adrien, Bhupendra Primary Care Unavailable Adrien, Bhupendra Primary Care Unavailable Torri Caputo Attending Unavail able Adrien, Bhupendra Referring Unavailable Paolo Muñiz Attending Unavailable Adrien, Bhupendra Primary Care Unavailable Roof PUBLIC WORKS INSPECTOR, Raghu Eng Attending Unavailable Roof PUBLIC WORKS INSPECTOR, Raghu Eng Referring Unavailable Adrien, Bhupendra Primary Care Unavailable Adrien, Bhupendra Primary Care Unavailable Roscoe Winn Attending Unavailable Michelle, José Miguel Attending Unavailable Adrien, Bhupendra Primary Care Unavailable Adrien, Bhupendra Primary Care Unavailable Michelle, José Miguel Referring Unavailable Nagajothi, Nagapradee Admitting Unavailabl e Nagajothi, Nagapradee Consulting Unavailabl e Michelle, José Miguel Attending Unavailable Bhupendra Jurado Primary Care Unavailable Michelle, Roland Attending Unavailable Adrien, Bhupendra Referring Unavailable Medications Current Medications Medication Drug Class(es) Dates Sig (Normalized) Sig (Original) acyclovir 200 mg oral capsule (20 sources) Herpesvirus Nucleoside Analog DNA Polymerase Inhibitor, Herpes Simplex Virus Nucleoside Analog DNA Polymerase Inhibitor, Herpes Zoster Virus Nucleoside Analog DNA Polymerase Inhibitor Start: 07-10-2017 End: 10-04-2019 take 1 capsule by mouth once daily as needed Acyclovir 200 MG Oral Capsule ; 1 (one) Capsule Capsule daily PRN for 0 days Quantity: 30 {Capsule} Refills: 5 Ordered: 10-Jul-2017 MD Bhupendra Jurado Start: 10-Jul-2017 Start: 05-22-2015 End: 03-03-2016 Acyclovir 200 MG Oral Capsul e ; 1 Capsule 5 x per day for 7 days Quantity: 35 {Capsule} Refills: 5 Ordered: 03-Mar-2016 ADRIAN Ross Start: 22-May-2015 End: 03-Mar-2016 Status: Inactive Comments: [facility] Comment on above: [facility] aspirin 81 mg chewable tablet (2 sources) Platelet Aggregation Inhibitor, Nonsteroidal Anti-inflammatory Drug Start: 02-28-2024 take 1 tablet by mouth once Aspirin 81 mg tablet,chewable Active 81 mg PO ONCE 7 0 February 28, 2024 12:00am heart [facility] take 1 capsule by mouth once melania ly aspirin 81 mg cap Take 81 mg by mouth once daily. Active atorvastatin 80 mg oral tablet (3 sources) HMG-CoA Reductase Inhibitor Start: 03-15-2024 End: 12-08-2024 take 1 tablet by mouth once daily at bedtime atorvastatin (LIPITOR) 80 mg tablet Take 1 tablet by mouth daily at bedtime. 90 tablet 3 12/09/2024 4:12 PM EDT 12/08/2024 Active citalopram 40 mg oral tablet (13 sources) Serotonin Reuptake Inhibitor Start: 04-21-2018 End: 10-04-2019 take 1 tablet by mouth once daily Citalopram Hydrobromide 40 MG Oral Tablet ; 1 (one) Tablet qd for 0 days Quantity: 30 {Tablet} Refills: 5 Ordered: 21-Apr-2018 MD Bhupendra Jurado Start: 21-Apr-2018 clopidogrel 75 mg oral tablet (3 sources) P2Y12 Platelet Inhibitor Start: 12-08-2024 take 1 tablet by mouth once daily in the evening clopidogrel (PLAVIX) 75 mg tablet Take 1 tablet by mouth once daily. 90 tablet 3 12/09/2024 4:12 PM EDT 12/08/2024 Active Start: 03-31-2024 End: 12-08-2024 Clopidogrel (Plavix) 75 mg t ablet Discontinued 75 mg PO daily 90 3 March 31, 2024 12:00am December 08, 2024 9:52am Take 4 pills on day then, then once a day dronedarone 400 mg oral tablet (1 source) Antiarrhythmic Start: 12-13-2024 take 1 tablet by mouth twice daily at mealtime dronedarone (MULTAQ) 400 mg tab Indications: Persistent atrial fibrillation (HCC) Take 1 tablet by mouth two times a day with meals. 180 tablet 3 12/13/2024 Active 24 hr metoprolol succinate 50 mg extended release oral tablet (14 sources) beta-Adrenergic Sisi Start: 05-07-2021 End: 12-10-2024 Metoprolol Tartrate 25 mg tablet Discontinued 25 mg PO .PRN as needed for for breakthrough arrythmia 14 0 December 08, 2023 2:33pm December 10, 2024 12:42am Start: 04-23-2020 End: 12-08-2024 take 1 tablet by mouth twice daily in the evening metoprolol succinate ER (TOPROL XL) 50 mg 24 hr tablet Take 1 tablet by mouth two times a day for blood pressure. 180 tablet 3 12/09/2024 4:12 PM EDT 12/08/2024 Active Start: 03-02-2019 End: 03-02-2019 take 1 tablet by mouth every twenty-four hours Metoprolol Succinate 50 mg tablet extended release 24 hr Discontinued PO 30 0 March 02, 2019 12:00am March 02, 2019 3:42pm Start: 03-02-2019 End: 04-23-2020 take 1 tablet by mouth once daily Metoprolol Succinate (Toprol Xl) 50 mg tablet extended release 24 hr Discontinued 50 mg PO DAILY 90 6 March 02, 2019 12:00am April 23, 2020 12:00pm metoprolol tartr ate, short acting, (LOPRESSOR) 50 mg tablet Take 50 mg by mouth as needed. Active Completed/Discontinued Medications Medication Drug Class(es) Dates Sig (Normalized) Sig (Original) amoxicillin 875 mg / clavulanate 125 mg oral tablet (12 sources) Penicillin-class Antibacterial Start: 01-25-2016 End: 02-04-2016 take 1 tablet by mouth twice daily AUGMENTIN, 875-125MG (Oral Tablet) ; 1 (one) Tablet two times daily for 10 days Quantity: 20 {Tablet} Refills: 0 Ordered: 25-Jan-2016 MD Johnna Morrison Start: 25-Jan-2016 End: 04-Feb-2016 Status: Inactive flecainide acetate 100 mg oral tablet (5 sources) Antiarrhythmic Start: 05-21-2021 End: 03-15-2024 take 1 tablet by mouth every twelve hours Flecainide 100 mg tablet Discontinued 100 mg PO Q12H 180 3 December 08, 2023 2:32pm March 15, 2024 7:23am ticagrelor 90 mg oral tablet (2 sources) Start: 03-15-2024 End: 03-31-2024 take 1 tablet by mouth twice daily Ticagrelor (Brilinta) 90 mg tablet Discontinued 90 mg PO .COMPLEX 60 0 March 15, 2024 11:57am March 31, 2024 2:02pm 90 mg orally twice a day: switch to Plavix after 1 month; Problems Active Problems Problem Classification Problem Date Documented Date Episodic/Chronic Abdominal pain (20 sources) Abdominal pain; Translations: [Unspecified abdominal pain] Onset: 11-11-2024 04-09-2018 Episodic Administrative/social admission (20 sources) Repeated prescription; Translations: [Encounter for issue of repeat prescription] 04-09-2018 Episodic Cardiac dysrhythmias (20 sources) Paroxysmal atrial fibrillation; Translations: [Paroxysmal atrial fibrillation] Onset: 04-07-2021 02-03-2019 Chronic Comment on above: DCCV in ER 04/07/21 Cardiac dysrhythmias (1 source) Palpitations; Translations: [Palpitations] Onset: 12-13-2024 Episodic Coronary atherosclerosis and other heart disease (5 sources) Arteriosclerotic vascular disease; Translations: [Atherosclerotic heart disease of minto coronary artery without angina pectoris] Onset: 06-13-2024 03-15-2024 Chronic Disorders of lipid metabolism (20 sources) Hyperlipidemia; Translations: [Hyperlipidemia, unspecified] Onset: 03-22-2024 04-09-2018 Chronic Diverticulosis and diverticulitis (20 sources) Diverticulitis; Translations: [Diverticulitis of intestine, part unspecified, without perforation or abscess without bleeding] 04-09-2018 Chronic Gastritis and duodenitis (20 sources) Acute gastritis; Translations: [Acute gastritis without bleeding] 03-19-2010 Episodic Mood disorders (20 sources) Depressive disorder; Translations: [Depressive disorder, not elsewhere classified] 04-09-2018 Chronic Other circulatory disease (1 source) H/O: heart disorder; Translations: [Personal history of other diseases of the circulatory system] 06-12-2024 Episodic Other injuries and conditions due to external causes (20 sources) Injury of elbow; Translations: [Unspecified injury of right elbow, initial encounter] 04-09-2018 Episodic Other injuries and conditions due to external causes (2 sources) Injury of right elbow region; Translations: [Unspecified injury of right elbow, initial encounter] 04-09-2018 Episodic Other screening for suspected conditions (not mental disorders or infectious disease) (20 sources) MRI scan abnormal; Translations: [Abnormal findings on diagnostic imaging of other specified body structures] 04-09-2018 Chronic Other skin disorders (20 sources) Actinic keratosis 04-09-2018 Episodic Other skin disorders (20 sources) Skin lesion; Translations: [Disorder of the skin and subcutaneous tissue, unspecified] 04-09-2018 Episodic Residual codes; unclassified (20 sources) Influenza vaccination declined; Translations: [Immunization not carried out because of patient refusal] 04-09-2018 Episodic Residual codes; unclassified (20 sources) Insomnia; Translations: [Insomnia, unspecified] 04-09-2018 Episodic Residual codes; unclassified (3 sources) Other specified personal risk factors, not elsewhere classified; Translations: [Other specified personal history presenting hazards to health] Onset: 12-12-2024 12-12-2024 Episodic Unclassified (1 source) Other persistent atrial fibrillation; Translations: [Persistent atrial fibrillation (HCC)] Onset: 12-12-2024 Viral infection (20 sources) Herpes simplex; Translations: [Herpesviral infection, unspecified] 04-09-2018 Episodic Past or Other Problems Problem Classification Problem Date Documented Da te Episodic/Chronic Coronary atherosclerosis and other heart disease (7 sources) History of cardiovascular surgery; Translations: [Presence of coronary angioplasty implant and graft] Onset: 03-14-2024 07-20-2024 Episodic Comment on above: PCI of Proximal LAD /Diagonal 1 bifurcation with GOPI to LAD 2.5 X 30mm [place] 03/14/2024; Mood disorders (12 sources) Mood disorders 05-22-2015 Nonspecific chest pain (3 sources) Chest pain; Translations: [Chest pain, unspecified] Onset: 03-22-2024 12-08-2023 Episodic Other screening for suspected conditions (not mental disorders or infectious disease) (20 sources) CT of abdomen abnormal; Translations: [Abnormal findings on diagnostic imaging of other abdominal regions, including retroperitoneum] Onset: 03-22-2024 04-09-2018 Episodic Unclassified (12 sources) Well adult male - The patient feels well with no complaints, has decreased energy level and is sleeping well. The patient has a balanced diet and takes no supplemental vitamins & iron. The patient exercises 3 - 4 times per week. The patient sleeps 7 hours per night. Note for Well adult male: reviewed by [facility] 04-09-2018 Unclassified (12 sources) Well Adult, male - The patient feels well with minor complaints (Pt here today for wellness physical for work. Labs were done and ready to review. He does a skin lesion on his right wrist area that he would like opinion on.He also had an MRI of spine for lesion on T 11 but has not heard results. He is seeing Dr. Jack in [place] for t his.Pthad a Sigmoidectomy in July and follows Dr. Grande for that.). The current method of contraception is partner with tubal ligation. The patient has a balanced diet and takes no supplemental vitamins & iron. The patient exercises 3 - 4 times per week. The patient sleeps 8 hours per night. Note for Well Adult, male: reviewed by [facility] 03-13-2017 Unclassified (12 sources) Abdominal pain - The onset of the abdominal pain has been sudden and has been occurring in a persistent pattern for 1 day. The course has been increasing. The pain is described as a severe pressure sensation and cramping. The pain is located in the left lower quadrant and radiates to the right lower quadrant. The symptoms have no aggravating factors but are relieved by bowel movements. 04-07-2016 Unclassified (8 sources) Well Adult, male - The patient feels well with no complaints (Pt here for wellness physical for work and insurance. ). The current method of contraception is partner with tubal ligation. The patient has a balanced diet (but does not eat vegetables very well.) and takes no supplemental vitamins & iron. The patient exercises weekly. The patient sleeps 8 hours per night. Note for Well Adult, male: reviewed by [facility] 03-28-2016 Unclassified (8 sources) [ADDITIONAL REASON] Elbow pain - The onset of the pain has been sudden following an incident not at work (WHile lifiting weights.) and has been occurring in an intermittent pattern for 1 year. The course has been recurrent. The pain is characterized as a sharp stabbing. The pain is described as being located over the lateral elbow in the right elbow. Aggravating factors include lifting. The pain is relieved by rest. The symptoms have been associated with swelling in the arm, while the symptoms have not been associated with swelling in the elbow. There were no previous diagnostic tests. Note for Elbow pain: reviewed by [facility] 03-28-2016 Unclassified (12 sources) Abdominal pain - The onset of the abdominal pain has been sudden and has been occurring in a persistent pattern for 14 hours. The course has been decreasing. The pain is described as a moderate dull ache and pressure sensation. The pain is located in the left lower quadrant. The symptoms are aggravated by meals (1/2 to 1 hour after eating) and meals (2 to 4 hours after eating) but are relieved by fasting. The symptoms have been associated with constipation and diarrhea (loose), while the symptoms have not been associated with fever, nausea or vomiting. Note for Abdominal pain: Patient's symptoms are gone today. He had symptoms all day yesterday and have had them intermittently over the past couple of years. He is interested in a referral to gastro. 01-25-2016 Unclassified (12 sources) Depression (Initial) - The onset of the depression has been gradual and has been occurring in a persistent (had been on/off for quite awhile but past couple months it has been more persistent.) pattern for 1 year. The course has been increasing. The symptoms include weight loss (intentional- has been trying.) and irritability. The symptoms have been associated with difficulty sleeping. 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 He keeps it in but then will take this anger home and lash out at his children and . It is however starting to affect his work and one of the doctores suggested that he be seen by family doctor and get on some medication.). Note for Depression: being very angry. 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 He would like something different. reviewed by [facility] 09-04-2014 Unclassified (12 sources) Well Adult, male - The patient feels well with minor complaints (Complains of low back pain for 1 month upon awakening. Improves during the day.), has good energy level and is sleeping well. The patient has a balanced diet and takes no supplemental vitamins & iron. The patient exercises 3 - 4 times per week (Runs). The patient sleeps 7 hours per night. Note for Well Adult, male: Wellness physical for insurance. reviewed by [facility] 03-08-2014 Unclassified (12 sources) Well Adult, male - The patient feels well with no complaints, has good energy level and is sleeping well. The patient has a balanced diet and takes no supplemental vitamins & iron. The patient exercises 3 - 4 times per week (Runs and strengthening exercises 5 times per week.). The patient sleeps 7 hours per night. Note for Well Adult, male: Wellness physical for insurance. reviewed by [facility] 02-22-2013 Unclassified (12 sources) Abdominal pain - The onset of the abdominal pain has been sudden and has been occurring in a persistent (intensity changes) pattern for 2 days. The pain is described as a moderate pressure sensation. The pain is located in the left lower quadrant and does not radiate. The symptoms are aggravated by alcohol (carbonated beverages) but are relieved by nothing (patient did take 2 vicodin that helped ). The symptoms have been associated with nausea, while the symptoms have not been associated with bloating, chest pain, constipation, dark urine, diarrhea, dysuria, fever, heartburn or vomiting. 07-16-2012 Unclassified (12 sources) Form Completion Physicals - The patient feels well with no complaints, has good energy level and is sleeping poorly. Current symptoms include sleep disturbances (Several times per week wakes in middle of night and can't go back to sleep.). The patient exercises daily (Runs). The patient has an appropriate balanced diet and takes no supplemental vitamins or iron and sleeps on average 6 hours per night. Habits include alcohol (3 times per week.) and caffeine (2 cups of coffee in the morning.) use. Last tetanus vaccination: Date: (03-28-2010). Note for Form completion physical: Wellness physical for insurance. 03-02-2012 Unclassified (12 sources) Renew medication - Pthere to get renewal on acyclovir for areas on nose. Would also like to discuss sleep aide. Has problems staying asleep once he gets asleep and will wake up several times a night. Has used Benadryl but wakes up drwsy the next morning. Snores some but states does not snore a lot.ALso discuss colonoscopy He is not having any probolems but his dad of cancer(not colon) but wanted your opinion as to when he should get this done. 04-18-2011 Unclassified (11 sources) Abdominal pain - The onset of the pain has been acute (Had been taking large doses of Motrin due to neck pain. Is not taking it anymore and abd pain is decreasing.). There has been no associated bloody stools, hematemesis or melena. Note for Abdominal pain: Pain improving now that MOtrin has been decreased. Is worse when empty. 03-19-2010 Unclassified (11 sources) [ADDITIONAL REASON] mole chedk - Would also like you to check a mole on rt shoulder. Has been there since spring. No change. 03-19-2010 Unclassified (4 sources) Elbow pain - The onset of the pain has been sudden following an incident not at work (WHile lifiting weights.) and has been occurring in an intermittent pattern for 1 year. The course has been recurrent. The pain is characterized as a sharp stabbing. The pain is described as being located over the lateral elbow in the right elbow. Aggravating factors include lifting. The pain is relieved by rest. The symptoms have been associated with swelling in the arm, while the symptoms have not been associated with swelling in the elbow. There were no previous diagnostic tests. Note for Elbow pain: reviewed by [facility] 03-28-2016 Unclassified (4 sources) [ADDITIONAL REASON] Well Adult, male - The patient feels well with no complaints (Pt here for wellness physical for work and insurance. ). The current method of contraception is partner with tubal ligation. The patient has a balanced diet (but does not eat vegetables very well.) and takes no supplemental vitamins & iron. The patient exercises weekly. The patient sleeps 8 hours per night. Note for Well Adult, male: reviewed by [facility] 03-28-2016 Unclassified (1 source) mole chedk - Would also like you to check a mole on rt shoulder. Has been there since spring. No change. 03-19-2010 Unclassified (1 source) [ADDITIONAL REASON] Abdominal pain - The onset of the pain has been acute (Had been taking large doses of Motrin due to neck pain. Is not taking it anymore and abd pain is decreasing.). There has been no associated bloody stools, hematemesis or melena. Note for Abdominal pain: Pain improving now that MOtrin has been decreased. Is worse when empty. 03-19-2010 Results Test Name Value Interpretation Reference Range Facility [facility] 12-13-2024 CNOV Office Visit (AGCARDPOB) KATERIN RIVERA ([id number]) 1970 M [facility] Date Time Provider Department 12/13/24 11:20 AM JOHNNA DAVIS AGCARDPOB During your visit today, we recorded the following information about you: Pulse Blood pressure Weight 71/minute 110/73 115.3 kg Johnna Davis MD 12/13/2024 7:09 PM Addendum PRIMARY CARE PHYSICIAN: Bhupendra Jurado ([facility]) [address] [place] [address] REFERRING PHYSICIAN: Raghu Saunders [address] [facility] [id number] Patient Care Team: Bhupendra Jurado MD as PCP - General (Family Medicine) Raghu Saunders APRN.CNP as Nurse Practitioner (Cardiology) José Miguel Martinez MD as Specialty De Alcoholizer (Cardiology) Recording using ambient [employer] software for draft documentation of the visit was discussed with the patient/authorized credit resolution representative; all questions welcomed and answered. 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 Patient Overview: Mr. Rivera is referred to Dr. Davis for evaluation of atrial fibrillation by [facility]. He has a history of persistent atrial fibrillation, including a hospitalization in May 2024. He had persistent atrial fibrillation in March 2024 and underwent electrical cardioversion in the ER. Flecainide was initiated in May 2021 but later discontinued due to contraindication with coronary artery disease. Diagnostic Results: - Stress Echocardiogram (2018): No evidence of myocardial ischemia. - Stress Echocardiogram (February 2024): Abnormal with evidence of mid-anterior ischemia. - Cardiac Catheterization (February 16, 2024): Severe disease of the LAD and moderate disease of the RCA. - Stenting of LAD and angioplasty of the diagonal vessel. Items for Follow-Up Today: - Consideration of treatment options, including other antiarrhythmic drugs versus catheter ablation. The patient is a 54-year-old male with a history of persistent atrial fibrillation and CAD, presenting for evaluation and management of atrial fibrillation. The patient reports that his initial episode of atrial fibrillation occurred in January 2019, accompanied by palpitations and exertional dyspnea. He was treated with Cardizem and spontaneously converted to normal sinus rhythm without hospitalization. Approximately eight months later, he experienced another episode requiring electrical cardioversion and was started on flecainide in May 2021, which effectively prevented further episodes. In February 2024, a stress echocardiogram revealed mid-anterior ischemia, leading to a cardiac catheterization that demonstrated severe LAD disease and moderate RCA disease. He underwent LAD stenting and angioplasty of the diagonal vessel. Flecainide was discontinued due to its contraindication in CAD. In May 2024, he experienced persistent atrial fibrillation with RVR and underwent electrical cardioversion after Cardizem failed to convert him. He has had a total of three cardioversions to date. Most recently, on December 10, 2024, he presented to the ED with atrial fibrillation with RVR and a heart rate of 148 bpm, requiring electrical cardioversion. He reports no identifiable triggers for his atrial fibrillation episodes and has reduced his alcohol consumption, suspecting it might be a contributing factor. He is physically active, running three miles before his most recent episode. He expresses frustration with his recurrent atrial fibrillation and is interested in exploring treatment options that would allow him to maintain his active lifestyle. His past medical history is significant for a sigmoidectomy in 2017 due to diverticulitis and an appendectomy in 1983. He denies any history of hypertension, diabetes, or previous strokes. He is a non-smoker and does not use tobacco products. Family history is notable for his mother, aged 76, who has hypercholesterolemia and dementia. His father at 59 from lung cancer, despite being a non-smoker, and had a history of hypertension. He has two sisters and one brother; one sister had thyroid cancer, while the others have no known medical issues. His maternal grandmother is 97 years old and has poor circulation to her stomach. He is currently taking aspirin 81 mg daily, atorvastatin 80 mg daily, Plavix 75 mg daily, metoprolol succinate 50 mg BID, and metoprolol tartrate 50 mg as needed. I have confirmed and edited as necessary, the PFSH and ROS obtained by others. PAST MEDICAL HISTORY Diagnosis Date At risk for stroke 12/12/2024 Coronary artery disease involving minto coronary artery of minto heart without an (more content not included)... Normal [facility] Absolute lymphocyte countOrd ered By: Paolo Muñiz on 12-10-2024 Lymphocytes Auto (Unsp spec) [#/Vol] 3.03 10*3/uL 0.83-4.51 [facility] Absolute neutrophil countOrd ered By: Paolo Muñiz on 12-10-2024 Neutrophils (Bld) [#/Vol] 4.2 10*3/uL 2.0-7.7 [facility] Anion gap in Serum or Plasma Ordered By: Paolo Muñiz on 12-10-2024 Anion gap [Moles/Vol] 12 mmol/L - [facility] Automated lymphocyte count a s percentage of total leukocytesOrdered By: Paolo Muñiz on 12-10-2024 Lymphocytes/100 WBC Auto (Unsp spec) 36.2 % - [facility] BUN/creatinine ratioOrdered By: Paolo Muñiz on 12-10-2024 Urea nitrogen/Creatinine [Mass ratio] 19.2 mg/mg - [facility] Basic Metabolic Profile (BMP )on 12-10-2024 BUN/CRE 19.2 RATIO Normal - [facility] Comment on above: Performed By: #### L 100.0100, L500.2500, L501.4021 #### [facility] [address] [place], [address] Calcium [Mass/Vol] 9.5 mg/dL Normal 7.6-11.0 [facility] Comment on above: Performed By: #### L 100.0100, L500.2500, L501.4021 #### [facility] [address] [place], [address] Chloride [Moles/Vol] 105 mmol/L Normal 98-108 [facility] Comment on above: Performed By: #### L 100.0100, L500.2500, L501.4021 #### [facility] [address] [place], [address] CO2 [Moles/Vol] 22.3 mmol/L Normal 21.0-32.0 [facility] Comment on above: Performed By: #### L 100.0100, L500.2500, L501.4021 #### [facility] [address] [place], [address] Creatinine [Mass/Vol] 0.97 mg/dL Normal 0.70-1.20 [facility] Comment on above: Performed By: #### L 100.0100, L500.2500, L501.4021 #### [facility] [address] [place], [address] ECRCL 115.66 ml/min Normal 50-250 [facility] Comment on above: Performed By: #### L 100.0100, L500.2500, L501.4021 #### [facility] [address] [place], [address] GAP 12 Normal 5-15 [facility] Comment on above: Performed By: #### L 100.0100, L500.2500, L501.4021 #### [facility] [address] [place], [address] GFR/1.73 sq M.predicted among non-blacks MDRD (S/P/Bld) [Vol rate/Area] 92 mL/min/{1.73_m2} Normal >60 [facility] Comment on above: Result Comment: mL/m in/1.73m2 CKD-EPI Creatinine Equation (2020) Performed By: #### L 100.0100, L500.2500, L501.4021 #### [facility] [address] [place], [address] Glucose [Mass/Vol] 107 mg/dL High 70-99 [facility] Comment on above: Performed By: #### L 100.0100, L500.2500, L501.4021 #### [facility] [address] [place], [address] Potassium [Moles/Vol] 3.9 mmol/L Normal 3.3-5.1 [facility] Comment on above: Performed By: #### L 100.0100, L500.2500, L501.4021 #### [facility] [address] [place], [address] Sodium [Moles/Vol] 140 mmol/L Normal 133-145 [facility] Comment on above: Performed By: #### L 100.0100, L500.2500, L501.4021 #### [facility] [address] [place], [address] Urea nitrogen [Mass/Vol] 19 mg/dL Normal 4-19 [facility] Comment on above: Performed By: #### L 100.0100, L500.2500, L501.4021 #### [facility] [address] [place], [address] Basophil percentageOrdered B y: Paolo Muñiz on 12-10-2024 Basophils/100 WBC (Bld) 0.5 % 0-1 [facility] CBC W/Diff, Automatedon 11-14 WBC (Bld) [#/Vol] 4.0 10*3/uL Low 4.4-11.0 [facility] Comment on above: Performed By: #### L 100.0100, L500.2500, L501.4021 #### [facility] [address] [place], [address] Carbon dioxide, total [Moles /volume] in Central venous bloodOrdered By: Paolo Muñiz on 12-10-2024 CO2 [Moles/Vol] 22.3 mmol/L 21.0-32.0 [facility] Chest 1 View (Portable)on Chest 1 View (Portable) [facility] [address] [place] [address] Chest 1 View (Portable) MR#: [id number] Acct: [id number] Name: KATERIN RIVERA TAM Breaux. Rep #: [id number] : 1970 M 54 From: Serafin Almanzar MD PCP: Dr. Bhupendra Jurado MD Status: [facility] ER Study: Chest 1 View (Portable) Date of Exam: 12/10/24 Exam# [id number] Ordering Dr: Paolo Muñiz DO PROCEDURE: CHEST 1 VIEW (PORTABLE) 12/10/2024 REASON FOR EXAM: CHEST PAIN TECHNIQUE: Frontal view of the chest. COMPARISON: 06/04/2024 FINDINGS: Normal heart size. Prominent fat pads bilateral old clavicle fractures. Well inflated lungs. No consolidation, effusion, or pneumothorax. RAD/Chest 1 View (Portable) IMPRESSION: No acute findings. Reading Location: [place] [address] CC: Dr. Bhupendra Jurado MD; Dr. Paolo Muñiz DO [employer] Teacher: Signed Normal [facility] Chloride assayOrdered By: Adalberto Muñiz on 12-10-2024 Chloride [Moles/Vol] 105 mmol/L 98-108 [facility] Emergency Department Summary on 12-10-2024 Emergency Department Summary [facility] Medical Records Department [address] [place] [address] Emergency Department Summary 12/10/24 MR#: [id number] Acct: [id number] Name: KATERIN RIVERA JrGiovani Rep #: [id number] : 1970 54 From: Paolo Muñiz DO PCP: Dr. Bhupendra Jurado MD Status:[facility] ER Location: ED HPI History of Present Illness Chief Complaint: Palpitations [facility] Medical History Arteriosclerotic cardiovascular disease Colonoscopy planned Atrial fibrillation with rapid ventricular response (04/07/21) Obesity New onset atrial fibrillation (02/02/19) Paroxysmal atrial fibrillation Depression Hyperlipidemia Diverticulitis Herpes Insomnia Home Medications ???Medication ???Instructions ???Recorded ???Last Taken ???Type aspirin 81 mg chewable tablet 81 mg PO ONCE heart health #7 tabs 02/28/24 03/14/24 Rx atorvastatin 80 mg tablet 80 mg PO QHS #90 tabs 12/08/24 Unk nown Rx clopidogrel 75 mg tablet (Plavix) 75 mg PO QDAY #90 tabs 12/08/24 U nknown Rx metoprolol succinate 50 mg 50 mg PO BID blood pressure #180 0 12/08/24 Unknown Rx tablet,extended release 24 hr tabs (Toprol XL) Allergy/AdvReac Type Severity Reaction Status Date / Time No Known Allergies Allergy Verified 12/10/24 00:41 Family History Father Cancer Grandmother No problems noted. Grandfather Cancer Surgical History Stented coronary artery (03/14/24) History of cardioversion (04/07/21) History of open sigmoidectomy Social History Smoking Status: Never smoker Smokeless tobacco user: other alcohol intake: current caffeine: Yes Type: coffee Number of servings: 2 EXAM Physical Exam Const Vital Signs: 12/10/24 00:43 12/10/24 00:45 12/10/24 00:46 Temperature 98.3 F Temperature Source Oral Pulse Rate 140 H Pulse Rate [1 (Initial Baseline)] Pulse Rate [2] Respiratory Rate 23 H Respiratory Rate [1 (Initial Baseline)] Respiratory Rate [2] Respiratory Effort Normal Respiratory Pattern Normal Blood Pressure 126/83 H Blood Pressure [1 (Initial Baseline)] Blood Pressure [2] Blood Pressure Mean 97 Baseline BP Pulse Ox 98 98 Oxygen Delivery Method Room Air Room Air Oxygen Delivery Method [1 (Initial Baseline)] Oxygen Delivery Method [2] Oxygen Flow Rate (L/min) Oxygen Flow Rate (L/min) [1 (Initial Baseline)] Oxygen Flow Rate (L/min) [2] EtCo2 - Document during CPR and with ROSC EtCo2 - Document during CPR and with ROSC [1 (Initial Baseline)] EtCo2 - Document during CPR and with ROSC [2] 12/10/24 00:51 12/10/24 01:00 12/10/24 01:15 Temperature Temperature Source Pulse Rate 142 H 127 H 146 H Pulse Rate [1 (Initial Baseline)] Pulse Rate [2] Respiratory Rate 16 17 24 H Respiratory Rate [1 (Initial Baseline)] Respiratory Rate [2] Respiratory Effort Respiratory Pattern Blood Pressure 111/61 Blood Pressure [1 (Initial Baseline)] Blood Pressure [2] Blood Pressure Mean 77 Baseline BP Pulse Ox 97 98 Oxygen Delivery Method Oxygen Delivery Method [1 (Initial Baseline)] Oxygen Delivery Method [2] Oxygen Flow Rate (L/min) Oxygen Flow Rate (L/min) [1 (Initial Baseline)] Oxygen Flow Rate (L/min) [2] EtCo2 - Document during CPR and with ROSC EtCo2 - Document during CPR and with ROSC [1 (Initial Baseline)] EtCo2 - Document during CPR and with ROSC [2] 12/10/24 01:30 12/10/24 01:45 12/10/24 02:00 Temperature Temperature Source Pulse Rate 144 H 131 H Pulse Rate [1 (Initial Baseline)] Pulse Rate [2] Respiratory Rate 17 18 Respiratory Rate [1 (Initial Baseline)] Respiratory Rate [2] Respiratory Effort Respiratory Pattern Blood Pressure 103/55 L 111/61 Blood Pressure [1 (Initial Baseline)] Blood Pressure [2] Blood Pressure Mean 70 77 Baseline BP Pulse Ox 95 98 Oxygen Delivery Method Room Air Oxygen Delivery Method [1 (Initial Baseline)] Oxygen Delivery Method [2] Oxygen Flow Rate (L/min) Oxygen Flow Rate (L/min) [1 (Initial Baseline)] Oxygen Flow Rate (L/min) [2] EtCo2 - Document during CPR and with ROSC EtCo2 - Document during CPR and with ROSC [1 (Initial Baseline)] EtCo2 - Document during CPR and with ROSC [2] 12/10/24 02:25 12/10/24 02:26 12/10/24 02:32 Temperature 98 F Temperature Source Pulse Rate 89 Pulse Rate [1 (Initial Baseline)] 128 H Pulse Rate [2] 78 Respiratory Rate 28 H Respiratory Rate [1 (Initial Baseline)] 25 H Respiratory Rate [2] 23 H Respiratory Effort Respiratory Pattern (more content not included)... Normal [facility] Eosinophil percentageOrdered By: Paolo Muñiz on 12-10-2024 Eosinophils/100 WBC (Bld) 1.8 % 0-5 [facility] Erythrocyte distribution wid th ratioOrdered By: Paolo Muñiz on 12-10-2024 Erythrocyte distribution width (RBC) [Ratio] 12.8 % 11.6-14.6 [facility] Erythrocyte distribution wid th standard deviationOrdered By: Paolo Muñiz on 12-10-2024 Erythrocyte distribution width (RBC) [Ratio] 40.0 fl 35.1-43.9 [facility] Glomerular filtration rate ( GFR) estimation/1.73 sq m using serum, plasma, or whole bOrdered By: Paolo Muñiz on 12-10-2024 GFR/1.73 sq M.predicted among non-blacks MDRD (S/P/Bld) [Vol rate/Area] 92 mL/min/{1.73_m2} >60 [facility] Comment on above: mL/min/1.73m2 CKD-EP I Creatinine Equation (2020) Hematocrit Auto (Bld) [Volum e fraction]Ordered By: Paolo Muñiz on 12-10-2024 Hematocrit (Bld) [Volume fraction] 43.9 % 40-54 [facility] Hemoglobin measurementOrdere d By: Paolo Muñiz on 12-10-2024 Hemoglobin (Bld) [Mass/Vol] 15.1 g/dL 13.0-16.5 [facility] Immature granulocytes/100 WB C Auto (Bld)Ordered By: Paolo Muñiz on 12-10-2024 Immature granulocytes/100 WBC (Bld) 0.500 % 0.0-0.9 [facility] Comment on above: IG% - Immature Granu locytes (promyelocytes, myelocytes and metamyelocytes) > 1% indicates that a LEFT SHIFT is Present. L499.0042on 12-10-2024 Trop T High Sen Normal <=22 [facility] Comment on above: Result Comment: Saul arredondo via OM: Ordered Performed By: #### L 499.0042 #### [facility] [address] [place], [address] L499.0043on 12-10-2024 Trop T High Sen Normal <=22 [facility] Comment on above: Result Comment: Saul arredondo via OM: Ordered Performed By: #### L 499.0043 ####[facility] [address] [place], [address] L501.4021on 12-10-2024 Trop T High Sen < 6 Normal <=22 [facility] Comment on above: Performed By: #### L 100.0100, L500.2500, L501.4021 #### [facility] [address] [place], [address] MCV (mean corpuscular volume ) determinationOrdered By: Paolo Muñiz on 12-10-2024 MCV (RBC) [Entitic vol] 86.4 fL 80-94 [facility] Mean corpuscular hemoglobin (MCH) determinationOrdered By: Paolo Muñiz on 12-10-2024 MCH (RBC) [Entitic mass] 29.7 pg 27.0-32.0 [facility] Mean corpuscular hemoglobin concentration (MCHC) determinationOrdered By: Paolo Muñiz on 12-10-2024 MCHC (RBC) [Mass/Vol] 34.4 g/dL 32-36 [facility] Mean platelet volume determi nationOrdered By: Paolo Muñiz on 12-10-2024 Platelet mean volume (Bld) [Entitic vol] 8.8 fL 6.2-12.0 [facility] Monocyte percentageOrdered B y: Paolo Muñiz on 12-10-2024 Monocytes/100 WBC (Bld) 10.6 % High 0-10 [facility] Neutrophil percentageOrdered By: Paolo Muñiz on 12-10-2024 Neutrophils/100 WBC (Bld) 50.4 % 47-70 [facility] Nucleated red blood cell per centageOrdered By: Paolo Muñiz on 12-10-2024 Nucleated RBC/100 WBC (Bld) [Ratio] 0 % 0-5 [facility] Platelet countOrdered By: Adalberto Muñiz on 12-10-2024 Platelets (Bld) [#/Vol] 270 10*3/uL 150-450 [facility] Potassium measurement (mass/ volume)Ordered By: Paolo Muñiz on 12-10-2024 Potassium (Unsp spec) [Mass/Vol] 3.9 mmol/L 3.3-5.1 [facility] RBC Auto (Bld) [#/Vol]Ordere d By: Paolo Muñiz on 12-10-2024 RBC (Bld) [#/Vol] 5.08 10*6/uL 4.6-6.2 [facility] Serum creatinine measurement (mass/volume)Ordered By: Paolo Muñiz on 12-10-2024 Creatinine [Mass/Vol] 0.97 mg/dL 0.70-1.20 [facility] Serum glucose measurement (m ass/volume)Ordered By: Paolo Muñiz on 12-10-2024 Glucose [Mass/Vol] 107 mg/dL High 70-99 [facility] Serum or plasma calcium jason urement (mass/volume)Ordered By: Paolo Muñiz on 12-10-2024 Calcium [Mass/Vol] 9.5 mg/dL 7.6-11.0 [facility] Serum or plasma urea nitroge n measurement (mass/volume)Ordered By: Paolo Muñiz on 12-10-2024 Urea nitrogen [Mass/Vol] 19 mg/dL 4-19 [facility] Sodium levelOrdered By: Pola Muñiz on 12-10-2024 Sodium [Moles/Vol] 140 mmol/L 133-145 [facility] Troponin T.cardiac [Mass/vol ume] in Serum or Plasma by High sensitivity methodOrdered By: Paolo Muñiz on 12-10-2024 Troponin T.cardiac High sensitivity method [Mass/Vol] < 6 ng/L <22 [facility] White blood cell (WBC) count Ordered By: Paolo Muñiz on 12-10-2024 WBC (Bld) [#/Vol] 4.0 10*3/uL Low 4.4-11.0 [facility] US ABD RIGHT UPPER QUADRANTo n 11-11-2024 US ABD RIGHT UPPER QUADRANT * * *Final Report* * * DATE OF EXAM: Nov 11 2024 8:01AM WRU 1032 - US ABD RIGHT UPPER QUADRANT / PROCEDURE REASON: Postprandial RUQ pain * * * * Physician Interpretation * * * * EXAMINATION: RIGHT UPPER QUADRANT AND SPLEEN ULTRASOUND CLINICAL HISTORY: Right upper quadrant pain TECHNIQUE: Sonography of the right upper quadrant and spleen was performed. Images were obtained and stored in a permanent archive. MQ: URUQ_2 COMPARISON: None. RESULT: Pancreas: Normal sonographic appearance. Portions obscured: tail Liver: Echotexture: Normal, homogeneous. Echogenicity: Increased with a region of sparing at the gallbladder fossa Surface contour: Smooth Lesions: None. Biliary: No intrahepatic biliary duct dilation. CBD: 0.4 cm at the hilum. Gallbladder: Normal caliber -Contents: No cholelithiasis -Wall: Normal -Other: No pericholecystic fluid. Spleen: 12.5 cm. No mass. Right and Left Kidney: No hydronephrosis. Ascites: None. IMPRESSION: Heterogeneous, echogenic liver compatible with fatty infiltration. There is a 4 cm somewhat ill-defined area of relative hypoechogenicity at the gallbladder fossa, most likely an area of fatty sparing. Follow-up if clinically indicated. [employer] Teacher: PHOEBE Transcribe Date/Time: Nov 13 2024 8:00A Dictated by : PAPA ROSENBAUM MD This examination was interpreted and the report reviewed and electronically signed by: PAPA ROSENBAUM MD on Nov 13 2024 8:02AM EST [id number] Normal [facility] US ABD SPLEEN -NBon 11-12-19 US ABD SPLEEN -NB * * *Final Report* * * DATE OF EXAM: Nov 11 2024 8:01AM U 1232 - US ABD SPLEEN -NB / PROCEDURE REASON: Postprandial RUQ pain * * * * Physician Interpretation * * * * EXAMINATION: RIGHT UPPER QUADRANT AND SPLEEN ULTRASOUND CLINICAL HISTORY: Right upper quadrant pain TECHNIQUE: Sonography of the right upper quadrant and spleen was performed. Images were obtained and stored in a permanent archive. MQ: URUQ_2 COMPARISON: None. RESULT: Pancreas: Normal sonographic appearance. Portions obscured: tail Liver: Echotexture: Normal, homogeneous. Echogenicity: Increased with a region of sparing at the gallbladder fossa Surface contour: Smooth Lesions: None. Biliary: No intrahepatic biliary duct dilation. CBD: 0.4 cm at the hilum. Gallbladder: Normal caliber -Contents: No cholelithiasis -Wall: Normal -Other: No pericholecystic fluid. Spleen: 12.5 cm. No mass. Right and Left Kidney: No hydronephrosis. Ascites: None. IMPRESSION: Heterogeneous, echogenic liver compatible with fatty infiltration. There is a 4 cm somewhat ill-defined area of relative hypoechogenicity at the gallbladder fossa, most likely an area of fatty sparing. Follow-up if clinically indicated. [employer] Teacher: [facility]ITAL[facility]lin Transcribe Date/Time: Nov 13 2024 8:00A Dictated by : PAPA ROSENBAUM MD This examination was interpreted and the report reviewed and electronically signed by: PAPA ROSENBAUM MD on Nov 13 2024 8:02AM EST [id number] Normal [facility] Cardiology Visit Reporton Cardiology Visit Report [facility] [address] [place] [address] OFFICE VISIT Date of Service: 07/13/24 MR#: [id number] Acct: [id number] Name: KATERIN RIVERA Jr. Rep #: [id number] : 1970 Provider: TYLER greer Age/Sex: 54/M Location: [facility] Status: Signed HPI HPI History of Present Illness Details: Colin Rivera is a 54-year-old gentleman who presents for a cardiovascular outpatient follow-up. He is a gentleman who had presented with atrial fibrillation with rapid ventricular response rate and spontaneously converted to sinus rhythm. He did unfortunately presents to the hospital again in May of this year and was placed on flecainide. He remember he had a stress echocardiogram in 2018 with no evidence of ischemia. During his visit in March you remember he underwent a DC cardioversion in the emergency room. He had been put on flecainide in May 2021 and he has not had any atrial fibrillation episodes since. Patient underwent a stress echocardiogram in February 2024 which was abnormal exercise echocardiogram with evidence of mid anterior ischemia noted at a high workload. He underwent a diagnostic heart catheterization which demonstrated severe disease of the LAD moderate disease of RCA. He underwent stenting of his LAD and diagonal vessel was angioplastied. His flecainide was discontinued at this time due to his new diagnosis of coronary artery disease. He was seen in the Emergency Department on 06/04/2024 and underwent cardioversion. He denies chest, arm, jaw, or neck discomfort. He acknowledges palpitations that he describes as skipping. He denies bilateral lower extremity edema, but acknowledges chronic left lower extremity edema. He denies claudication. He denies shortness of breath with activity, shortness of breath at rest, orthopnea, or PND. He denies chronic cough. He denies significant, sudden weight gain. He denies lightheadedness, dizziness, near-syncope, or syncope. He denies blood in urine, blood in stool, or epistaxis. He denies fever with chills. He denies myalgia. He denies fatigue. His exercise level has remained stable. Intake Vital Signs 03/31/24 13:29 06/04/24 19:27 07/13/24 13:59 Height 6 ft 2 in 6 ft 2 in 6 ft 2 in Weight: 256 lb BMI 32.8 BP 122/85 H Blood Pressure Location Lt brachial Position Sitting Respiration 14 Pulse 70 Pulse Source Monitor Temp 97.7 F L Temperature Source Oral Pulse Oximetry (%) 97 Oxygen Delivery Method room air Intake Visit Reasons: 3 M FU [employer] T[employer] Required: No Accompanied by: Self Is patient in pain?: No Allergies No Known Allergies Allergy (Verified 07/13/24 14:00) Medications ???Medication ???Instructions ???Recorded ???Confirmed ???Type metoprolol succinate 50 mg 50 mg PO BID blood pressure #180 12/08/23 07/13/24 Rx tablet,extended release 24 hr tabs (Toprol XL) metoprolol tartrate 25 mg tablet 25 mg PO .PRN PRN for breakthrough 12/08/23 07/13/24 Rx arrythmia #14 tabs aspirin 81 mg chewable tablet 81 mg PO ONCE heart health #7 tabs 02/28/24 07/13/24 Rx atorvastatin 80 mg tablet 80 mg PO QHS #180 tabs 03/15/24 07/13/24 Rx clopidogrel 75 mg tablet (Plavix) 75 mg PO QDAY #90 tabs 03/31/24 07/13/24 Rx PFSH Medical History Arteriosclerotic cardiovascular disease Colonoscopy planned Atrial fibrillation with rapid ventricular response (04/07/21) Obesity New onset atrial fibrillation (02/02/19) Paroxysmal atrial fibrillation Depression Hyperlipidemia Diverticulitis Herpes Insomnia Surgical History Stented coronary artery (03/14/24) History of cardioversion (04/07/21) History of open sigmoidectomy Family History Father Cancer Grandmother No problems noted. Grandfather Cancer Social History Smoking Status: Never smoker Smokeless tobacco user: other alcohol intake: current caffeine: Yes Type: coffee Number of servings: 2 ROS Const Const: Positive for daytime sleepiness and weight loss (14 lb this month with diet and exercise); Negative for fatigue, weakness, fever(s), headache(s), chills, frequent falls, night sweats, difficulty sleeping, excessive sweating or weight gain Eyes Eyes: Negative for blind spots, loss of peripheral vision, transient loss of vision, blurry vision, change in vision, double vision, floaters, tunnel vision or other ENT ENT: Positive for tinnitus; Negative for headache(s), dizziness, Nosebleed/epistaxis, balance problems, bleeding gums or neck pain Cardio Chest Pain: No Palpitations: Yes feels like its: skipping Edema: Left Muscle ac (more content not included)... Normal [facility] 12 Lead EKG performed by [facility] on 06-13-2024 12 Lead EKG performed by [facility] [address] [place] [address] 12 Lead EKG performed by [facility] 06/13/24 [id number] MR#: [id number] Acct: [id number] Name: KATERIN RIVERA Jr. Rep #: [id number] : 1970 54 From: José Miguel Martinez MD Attending Dr: Dr. José Miguel Martinez MD Status: DEP A SUSHANT Ordering Dr: José Miguel Martinez MD Date: 06/13/24 Location: [facility] Sex: M C Admitted: [facility]/12 Lead EKG performed by [facility] ECG Report Interpretation ---Sinus Rhythm WITHIN NORMAL LIMITSElectronically signed on 06/18/2024 at 12:44 by José Miguel Martinez [employer] Version 8610 06/18/24 1249 Date José Miguel Martinez MD CC: Dr. Bhupendra Jurado MD Date Dictated: 06/13/24818 Date Transcribed: 06/13/24818 [employer] Teacher: [place] Signed [facility] 12 Lead EKGon 06-04-[address] [facility] Cardiovascular Services [address] [place] [address] 12 Lead EKG 06/04/242105 MR#: [id number] Acct: [id number] Name: KATERIN RIVERA Rep #: [id number] : 1970 54 From: José Miguel Martinez MD Attending Dr: Status: DEP ER Ordering Dr: Roscoe Winn MD Date: 06/04/24 Location: ED Sex: M C Admitted: Test Reason : RYTHM CHANGE Blood Pressure : */* mmHG Vent. Rate : 72 BPM Atrial Rate : 72 BPM P-R Int : 174 ms QRS Dur : 94 ms QT Int : 394 ms P-R-T Axes : 20 9 20 degrees QTcB Int : 431 ms Normal sinus rhythm Normal ECG Confirmed by MICHELLE CARRIZALES, JOSÉ MIGUEL ([id number]), associate editor VALENTE GILLILAND ([id number]) on 06/06/2024 7:09:47 AM Referred By: Confirmed By: JOSÉ MIGUEL MARTINEZ MD 06/06/24708 Date José Miguel Martinez MD CC: Dr. Roscoe Winn MD; Dr. Bhupendra Jurado MD Signed [facility] [address] [facility] Cardi[facility] Services [address] [place] [address] 12 Lead EKG 06/04/241928 MR#: [id number] Acct: [id number] Name: KATERIN RIVERA Jr. Rep #: [id number] : 1970 54 From: José Miguel Martinez MD Attending Dr: Status: DEP ER Ordering Dr: Roscoe Winn MD Date: 06/04/24 Location: ED Sex: M C Admitted: Test Reason : A FIB Blood Pressure : */* mmHG Vent. Rate : 142 BPM Atrial Rate : * BPM P-R Int : * ms QRS Dur : 90 ms QT Int : 298 ms P-R-T Axes : * 18 208 degrees QTcB Int : 458 ms Critical Test Result: High HR Atrial fibrillation with rapid ventricular response Nonspecific ST and T wave abnormality Abnormal ECG Confirmed by MICHELLE CARRIZALES, JOSÉ MIGUEL ([id number]), associate editor VALENTE GILLILAND ([id number]) on 06/06/2024 7:07:06 AM Referred By: JW Confirmed By: JOSÉ MIGUEL MARTINEZ MD 06/06/24706 Date José Miguel Martinez MD CC: Dr. Roscoe Winn MD; Dr. Bhupendra Jurado MD Signed Normal [facility] Basic Metabolic Profile (BMP )on 06-04-2024 BUN/CRE 17.4 RATIO Normal - [facility] Comment on above: Order Comment: 'TROP ' Serial specimen #1, #2 or #3: 1 Performed By: #### L 500.2500, L100.0100, L501.4020 ####[facility] [address] [place], [address] CA,Total 9.3 mg/dL Normal 8.5-10.1 [facility] Comment on above: Order Comment: 'TROP ' Serial specimen #1, #2 or #3: 1 Performed By: #### L 500.2500, L100.0100, L501.4020 ####[facility] [address] [place], [address] Chloride [Moles/Vol] 112 mmol/L High 98-107 [facility] Comment on above: Order Comment: 'TROP ' Serial specimen #1, #2 or #3: 1 Performed By: #### L 500.2500, L100.0100, L501.4020 ####[facility] [address] [place], [address] CO2 [Moles/Vol] 22.0 mmol/L Normal 21.0-32.0 [facility] Comment on above: Order Comment: 'TROP ' Serial specimen #1, #2 or #3: 1 Performed By: #### L 500.2500, L100.0100, L501.4020 ####[facility] [address] [place], [address] Creatinine [Mass/Vol] 0.98 mg/dL Normal 0.70-1.30 [facility] Comment on above: Order Comment: 'TROP ' Serial specimen #1, #2 or #3: 1 Result Comment: The validity of the calculated GFR GFRAA in patients over 70 years has not been determined. Clinical correlation is essential. Performed By: #### L 500.2500, L100.0100, L501.4020 ####[facility] [address] [place], [address] ECRCL 116.52 ml/min Normal [facility] Comment on above: Order Comment: 'TROP ' Serial specimen #1, #2 or #3: 1 Performed By: #### L 500.2500, L100.0100, L501.4020 ####[facility] [address] [place], [address] EST GFR - AA 102 mL/min Normal >60 [facility] Comment on above: Order Comment: 'TROP ' Serial specimen #1, #2 or #3: 1 Result Comment: Afri can [place] GFR Calc Performed By: #### L 500.2500, L100.0100, L501.4020 ####[facility] [address] [place], [address] GAP 7 Normal 5-15 [facility] Comment on above: Order Comment: 'TROP ' Serial specimen #1, #2 or #3: 1 Performed By: #### L 500.2500, L100.0100, L501.4020 ####[facility] [address] [place], [address] GFR/1.73 sq M.predicted among non-blacks MDRD (S/P/Bld) [Vol rate/Area] 84 mL/min/{1.73_m2} Normal >60 [facility] Comment on above: Order Comment: 'TROP ' Serial specimen #1, #2 or #3: 1 Result Comment: Non- GFR Calc Performed By: #### L 500.2500, L100.0100, L501.4020 ####[facility] [address] [place], [address] Glucose [Mass/Vol] 113 mg/dL High 74-106 [facility] Comment on above: Order Comment: 'TROP ' Serial specimen #1, #2 or #3: 1 Result Comment: Fast ing Glucose result from 100 to 125 mg/dL suggests IMPAIRED HOMEOSTASIS per A.D.A. criteria. Performed By: #### L 500.2500, L100.0100, L501.4020 ####[facility] [address] [place], [address] Potassium [Moles/Vol] 3.7 mmol/L Normal 3.5-5.1 [facility] Comment on above: Order Comment: 'TROP ' Serial specimen #1, #2 or #3: 1 Performed By: #### L 500.2500, L100.0100, L501.4020 ####[facility] [address] [place], [address] Sodium [Moles/Vol] 141 mmol/L Normal 136-145 [facility] Comment on above: Order Comment: 'TROP ' Serial specimen #1, #2 or #3: 1 Performed By: #### L 500.2500, L100.0100, L501.4020 ####[facility] [address] [place], [address] Urea nitrogen [Mass/Vol] 17 mg/dL Normal 7-18 [facility] Comment on above: Order Comment: 'TROP ' Serial specimen #1, #2 or #3: 1 Performed By: #### L 500.2500, L100.0100, L501.4020 ####[facility] [address] [place], [address] CBC W/Diff, Automatedon 12-2 -2023 Absolute Lymph 3.09 X10 3/uL Normal 0.83-4.51 [facility] Comment on above: Performed By: #### L 500.2500, L100.0100, L501.4020 ####[facility] [address] [place], [address] Absolute Neut 4.9 X10 3/uL Normal 2.0-7.7 [facility] Comment on above: Performed By: #### L 500.2500, L100.0100, L501.4020 ####[facility] [address] [place], [address] Basophils/100 WBC (Bld) 0.6 % Normal 0-1 [facility] Comment on above: Performed By: #### L 500.2500, L100.0100, L501.4020 ####[facility] [address] [place], [address] Eosinophils/100 WBC (Bld) 2.0 % Normal 0-5 [facility] Comment on above: Performed By: #### L 500.2500, L100.0100, L501.4020 ####[facility] [address] [place], [address] Erythrocyte distribution width (RBC) [Ratio] 12.3 % Normal 11.6-14.6 [facility] Comment on above: Performed By: #### L 500.2500, L100.0100, L501.4020 ####[facility] [address] [place], [address] Hematocrit (Bld) [Volume fraction] 45.2 % Normal 40-54 [facility] Comment on above: Performed By: #### L 500.2500, L100.0100, L501.4020 ####[facility] [address] [place], [address] Hemoglobin (Bld) [Mass/Vol] 15.4 g/dL Normal 13.0-16.5 [facility] Comment on above: Performed By: #### L 500.2500, L100.0100, L501.4020 ####[facility] [address] [place], [address] IG% 0.200 Normal 0.0-0.9 [facility] Comment on above: Result Comment: IG% - Immature Granulocytes (promyelocytes, myelocytes and metamyelocytes) > 1% indicates that a LEFT SHIFT is Present. Performed By: #### L 500.2500, L100.0100, L501.4020 ####[facility] [address] [place], [address] Lymphocytes/100 WBC (Bld) 34.3 % Normal 19-41 [facility] Comment on above: Performed By: #### L 500.2500, L100.0100, L501.4020 ####[facility] [address] [place], [address] MCH (RBC) [Entitic mass] 29.6 pg Normal 27.0-32.0 [facility] Comment on above: Performed By: #### L 500.2500, L100.0100, L501.4020 ####[facility] [address] [place], [address] MCHC (RBC) [Mass/Vol] 34.1 g/dL Normal 32-36 [facility] Comment on above: Performed By: #### L 500.2500, L100.0100, L501.4020 ####[facility] [address] [place], [address] MCV (RBC) [Entitic vol] 86.9 fL Normal 80-94 [facility] Comment on above: Performed By: #### L 500.2500, L100.0100, L501.4020 ####[facility] [address] [place], [address] Monocytes/100 WBC (Bld) 8.9 % Normal 0-10 [facility] Comment on above: Performed By: #### L 500.2500, L100.0100, L501.4020 ####[facility] [address] [place], [address] Neutrophils/100 WBC (Bld) 54.0 % Normal 47-70 [facility] Comment on above: Performed By: #### L 500.2500, L100.0100, L501.4020 ####[facility] [address] [place], [address] Nucleated RBC (Bld) [#/Vol] 0 10*3/uL Normal 0-5 [facility] Comment on above: Performed By: #### L 500.2500, L100.0100, L501.4020 ####[facility] [address] [place], [address] Platelet mean volume (Bld) [Entitic vol] 8.5 fL Normal 6.2-12.0 [facility] Comment on above: Performed By: #### L 500.2500, L100.0100, L501.4020 ####[facility] [address] [place], [address] Platelets (Bld) [#/Vol] 287 10*3/uL Normal 150-450 [facility] Comment on above: Performed By: #### L 500.2500, L100.0100, L501.4020 ####[facility] [address] [place], [address] RBC (Bld) [#/Vol] 5.20 10*6/uL Normal 4.6-6.2 [facility] Comment on above: Performed By: #### L 500.2500, L100.0100, L501.4020 ####[facility] [address] [place], [address] RDW SD 39.0 fl Normal 35.1-43.9 [facility] Comment on above: Performed By: #### L 500.2500, L100.0100, L501.4020 ####[facility] [address] [place], [address] WBC (Bld) [#/Vol] 9.0 10*3/uL Normal 4.4-11.0 [facility] Comment on above: Performed By: #### L 500.2500, L100.0100, L501.4020 ####[facility] [address] [place], [address] Chest 1 View (Portable)on Chest 1 View (Portable) [facility] Imaging Services [address] [place] [address] Chest 1 View (Portable) MR#: [id number] Acct: [id number] Name: KATERIN RIVERA Jr. Rep #: [id number] : 1970 M 54 From: Mitali pérez MD PCP: Dr. Bhupendra Jurado MD Status: [facility] ER Study: Chest 1 View (Portable) Date of Exam: 06/04/24 Exam# [id number] Ordering Dr: [place] [id number] INDICATION: chest pain EXAMINATION/TECHNIQUE: X-RAY - XR Chest 1 View COMPARISON: 03/09/2024. FINDINGS: LINES/DEVICES: None. LUNGS: No consolidation, edema or effusion. No pneumothorax. MEDIASTINUM AND CARDIOVASCULAR STRUCTURES: Cardiac silhouette not enlarged. Central airways and mediastinal contour are unremarkable. BONES AND SOFT TISSUES: Unremarkable. RAD/Chest 1 View (Portable) IMPRESSION: No radiographic evidence of acute cardiopulmonary disease. Electronically Signed: Mitali Shea MD at 20:23 EST Reading Location ID and State: [id number] / Tel , Service support , CC: Dr. Roscoe Winn MD; Dr. Bhupendra Jurado MD [employer] Teacher: Signed Normal [facility] Emergency Department Summary on 06-04-2024 Emergency Department Summary [facility] Medical Records Department [address] [place] [address] Emergency Department Summary 06/04/24 MR#: [id number] Acct: [id number] Name: KATERIN RIVERA Jr. Rep #: [id number] : 1970 54 From: Roscoe Winn MD PCP: Dr. Bhupendra Jurado MD Status:DEP ER Location: ED HPI History of Present Illness Chief Complaint: Palpitations Informant: patient Onset/Context/Timing Onset: Today (6 PM about an hour and a half ago.) and Hours Activity at onset: sudden Timing: Continuous Narrative Narrative: 54-year-old male history of CAD with a stent. History of A-fib on metoprolol, aspirin and Plavix. About 6 PM tonight he suddenly went into A-fib. Denies chest pain. His heart rates been 150+. Its now been about an hour and a half. He took metoprolol earlier today and took an extra 50 mg shortly after he went into A-fib. His rate has not really improved. Prior Similar Symptoms: Yes Recent Illness/Hospitalization : No CVD Risk Factors: Negative for Hypertension, Diabetes or Smoking PE Risk Factors: Negative for Recent Travel/Surgery, Recent Immobilization, Prior DVT or PE, Cancer or OCP + Smoking + >/=35 TAD Risk Factors: Negative for Marfan's Syndrome [facility] Medical History Arteriosclerotic cardiovascular disease Colonoscopy planned Atrial fibrillation with rapid ventricular response (04/07/21) Obesity New onset atrial fibrillation (02/02/19) Paroxysmal atrial fibrillation Depression Hyperlipidemia Diverticulitis Herpes Insomnia Home Medications ???Medication ???Instructions ???Recorded ???Last Taken ???Type metoprolol succinate 50 mg 50 mg PO BID blood pressure #180 12/08/23 Unknown Rx tablet,extended release 24 hr tabs (Toprol XL) metoprolol tartrate 25 mg tablet 25 mg PO .PRN PRN for breakthrough 12/08/23 Unknown Rx arrythmia #14 tabs aspirin 81 mg chewable tablet 81 mg PO ONCE heart health #7 tabs 02/28/24 03/14/24 Rx atorvastatin 80 mg tablet 80 mg PO QHS #180 tabs 03/15/24 Unknown Rx clopidogrel 75 mg tablet (Plavix) 75 mg PO QDAY #90 tabs 03/31/24 Unknown Rx Allergy/AdvReac Type Severity Reaction Status Date / Time No Known Allergies Allergy Verified 06/04/24 19:27 Family History Father Cancer Grandmother No problems noted. Grandfather Cancer Surgical History Stented coronary artery (03/14/24) History of cardioversion (04/07/21) History of open sigmoidectomy Social History Smoking Status: Never smoker Smokeless tobacco user: other alcohol intake: current caffeine: Yes Type: coffee Number of servings: 2 ROS ROS ED ROS Narrative Denies recent illness. Constitutional Constitutional ED: Denies chills or fever(s) Eyes Eyes: Reports none ENT ENT ED: Denies ear pain Cardiovascular Cardiovascular: Reports palpitations and racing heartbeat; Denies chest pain Respiratory/Chest Respiratory/Chest: Denies cough or dyspnea Gastrointestinal Gastrointestinal: Denies abdominal pain Genitourinary Genitourinary ED: Denies dysuria Musculoskeletal Musculoskeletal: Denies arthralgias Integumentary Denies abscess Neurologic Neurologic: Denies headache(s) or paresthesias Psychiatric Psychiatric: Denies anxiety or depression Endocrine Endocrinology: Denies cold intolerance Hematologic/Lymphatic Hematologic/Lymphatic: Denies lymphadenopathy Allergic/Immunologic Allergic/Immunologic ED: Denies mouth swelling EXAM Physical Exam Narrative Exam Narrative: 54-year-old male A-fib RVR on the monitor rate about 152 on my exam. Vital signs are afebrile. His heart rate in triage was 179. He is tolerating it well. He is accompanied by his and son. H EENT exam unremarkable. Neck nontender. Lungs clear to auscultation bilaterally. Heart A-fib RVR rate 150s. Chest wall nontender. Abdomen soft nontender. Moving all 4 extremities. Chronic trace edema lower extremities. Normal strength. Normal range of motion. Back nontender. He is awake and alert. No focal motor deficits. Const Vital Signs: 06/04/24 19:27 06/04/24 19:34 06/04/24 20:26 Temperature 97.8 F Temperature Source Temporal Pulse Rate 179 H Pulse Rate [1 (Initial Baseline)] Pulse Rate [2] Pulse Rate [3] Pulse Rate [4] Pulse Rate [5] Pulse Rate [6] Respiratory Rate 18 Respiratory Rate [1 (Initial Baseline)] Respiratory Rate [2] Respiratory Rate [3] Respiratory Rate [4] Respiratory Rate [5] Respiratory Rate [6] Blood Pressure 119/97 H Blood Pressure [1 (Initial Baseline)] Blood Pressure [5] Blood Pressure [6] Blood Pressure Mean 104 Pulse Ox 9 (more content not included)... Normal [facility] L501.4020on 06-04-2024 TROPONIN-I HS 8 pg/mL Normal 3.0-78.0 [facility] Comment on above: Order Comment: 'TROP ' Serial specimen #1, #2 or #3: 1 Result Comment: Plea se Note: New Test Units and Gender Specific Reference Ranges. For more information see Policy Stat Procedure [place] High Sensitivity Troponin (TNIH) and attachments. Performed By: #### L 500.2500, L100.0100, L501.4020 ####[facility] [address] [place], [address] Cardiology Visit Reporton Cardiology Visit Report [facility] [address] [place] [address] OFFICE VISIT Date of Service: 03/31/24 MR#: [id number] Acct: [id number] Name: KATERIN RIVERA Jr. Rep #: [id number] : 1970 Provider: LUDMILA Green Age/Sex: 54/M Location: [facility] Status: Signed [facility] History of Present Illness Details: Colin Rivera is a 54-year-old gentleman who presents for a cardiovascular outpatient follow-up. He is a gentleman who had presented with atrial fibrillation with rapid ventricular response rate and spontaneously converted to sinus rhythm. He did unfortunately presents to the hospital again in May of this year and was placed on flecainide. He remember he had a stress echocardiogram in 2018 with no evidence of ischemia. During his visit in March you remember he underwent a DC cardioversion in the emergency room. He had been put on flecainide in May 2021 and he has not had any atrial fibrillation episodes since. Patient underwent a stress echocardiogram in February 2024 which was abnormal exercise echocardiogram with evidence of mid anterior ischemia noted at a high workload. He underwent a diagnostic heart catheterization which demonstrated severe disease of the LAD moderate disease of RCA. He underwent stenting of his LAD and diagonal vessel was angioplastied. His flecainide was discontinued at this time due to his new diagnosis of coronary artery disease. Since being home patient has not had any chest pain. He is trying to exercise. He would like to switch over to clopidogrel as Brilinta is expensive. He is not able to participate in cardiac rehab due to his work schedule. He does not have any worsening shortness of breath. He has not had any palpitations that he is aware of. He does have questions about his medications. 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: No Is patient in pain?: No Allergies No Known Allergies Allergy (Verified 03/31/24 13:30) Medications ???Medication ???Instructions ???Recorded ???Confirmed ???Type metoprolol succinate 50 mg 50 mg PO BID blood pressure #180 12/08/23 03/31/24 Rx tablet,extended release 24 hr tabs (Toprol XL) metoprolol tartrate 25 mg tablet 25 mg PO .PRN PRN for breakthrough 12/08/23 03/31/24 Rx arrythmia #14 tabs aspirin 81 mg chewable tablet 81 mg PO ONCE heart health #7 tabs 02/28/24 03/31/24 Rx atorvastatin 80 mg tablet 80 mg PO QHS #180 tabs 03/15/24 03/31/24 Rx clopidogrel 75 mg tablet (Plavix) 75 mg PO QDAY #90 tabs 03/31/24 03/31/24 Rx PFSH Medical History Arteriosclerotic cardiovascular disease Colonoscopy planned Atrial fibrillation with rapid ventricular response (04/07/21) Obesity New onset atrial fibrillation (02/02/19) Paroxysmal atrial fibrillation Depression Hyperlipidemia Diverticulitis Herpes Insomnia Surgical History Stented coronary artery (03/14/24) History of cardioversion (04/07/21) History of open sigmoidectomy Family History Father Cancer Grandmother No problems noted. Grandfather Cancer Social History Smoking Status: Never smoker Smokeless tobacco user: other alcohol intake: current caffeine: Yes Type: coffee Number of servings: 2 ROS Const Const: Negative for fatigue, weakness or frequent falls Eyes Eyes: Negative for change in vision ENT ENT: Negative for dizziness or balance problems Cardio Chest Pain: No Palpitations: No Edema: None Muscle aches with walking: None Resp Respiratory: Negative for SOB with activity, SOB at rest or SOB orthopnea SOB lying down GI GI: Negative nausea, vomiting or heartburn Musc Musc: Negative for muscle aches/ myalgia, muscle weakness, joint pain or balance problems Neuro Neuro: Negative for dizziness, frequent falls or weakness Endo Endo: Negative for fatigue Cardiology Exam Const Appearance: cooperative, healthy appearing, comfortable, no acute distress and well developed Orientation: alert, awake and oriented x3 Head Head: normal to inspection Ears: hearing grossly normal bilaterally Nose: external nose normal Face and Sinus: face symmetric Mouth: oral mucosae normal, lip normal and moist mucous membranes Eyes General: appearance normal, both eyes and all related structures (more content not included)... Normal [facility] 12 Lead EKGon 03-15-[address] [facility] Cardiovascular Services [address] [place] [address] 12 Lead EKG 03/14/24 1406 MR#: [id number] Acct: [id number] Name: KATERIN RIVERA Jr. Rep #: [id number] : 1970 54 From: José Miguel Martinez MD Attending Dr: Dr. Logan Samuels MD Statu s: DIS RITIKA Ordering Dr: Logan Samuels MD Date: 4 Location: [facility] Sex: M C Admitted: 03/14/24 Test Reason : POST PCI Blood Pressure : / mmHG Vent. Rate : 068 BPM Atrial Rate : 068 BPM P-R Int : 164 ms QRS Dur : 082 ms QT Int : 436 ms P-R-T Axes : 012 -03 -01 degrees QTc Int : 463 ms Sinus rhythm with occasional Premature ventricular complexes Minimal voltage criteria for LVH, may be normal variant ( R in aVL ) Borderline ECG Confirmed by MICHELLE CARRIZALES, JOSÉ MIGUEL ([id number]), associate editor PENNY SAVAGE ([id number]) on 03/16/2024 10:57:08 AM Referred By: José Miguel Martinez Confirmed By:JOSÉM IGUEL MARTINEZ MD 03/16/24 1057 Date José Miguel Martinez MD CC: Dr. José Miguel Martinez MD; Dr. Logan Samuels MD; Dr. Bhupendra Jurado MD Signed Normal [facility] CBC-Complete Blood Cnt No Di ffon 03-15-2024 Erythrocyte distribution width (RBC) [Ratio] 12.5 % Normal 11.6-14.6 [facility] Comment on above: Performed By: #### L 100.0500, L500.4050 ####[facility] [address] [place], [address] Hematocrit (Bld) [Volume fraction] 42.9 % Normal 40-54 [facility] Comment on above: Performed By: #### L 100.0500, L500.4050 ####[facility] [address] [place], [address] Hemoglobin (Bld) [Mass/Vol] 14.5 g/dL Normal 13.0-16.5 [facility] Comment on above: Performed By: #### L 100.0500, L500.4050 ####[facility] [address] [place], [address] MCH (RBC) [Entitic mass] 29.9 pg Normal 27.0-32.0 [facility] Comment on above: Performed By: #### L 100.0500, L500.4050 ####[facility] [address] [place], [address] MCHC (RBC) [Mass/Vol] 33.8 g/dL Normal 32-36 [facility] Comment on above: Performed By: #### L 100.0500, L500.4050 ####[facility] [facility] [address] [place], [address] MCV (RBC) [Entitic vol] 88.5 fL Normal 80-94 [facility] Comment on above: Performed By: #### L 100.0500, L500.4050 ####[facility] [address] [place], [address] Platelet mean volume (Bld) [Entitic vol] 8.8 fL Normal 6.2-12.0 [facility] Comment on above: Performed By: #### L 100.0500, L500.4050 ####[facility] [address] [place], [address] Platelets (Bld) [#/Vol] 243 10*3/uL Normal 150-450 [facility] Comment on above: Performed By: #### L 100.0500, L500.4050 ####[facility] [address] [place], [address] RBC (Bld) [#/Vol] 4.85 10*6/uL Normal 4.6-6.2 [facility] Comment on above: Performed By: #### L 100.0500, L500.4050 ####[facility] [address] [place], [address] RDW SD 40.6 fl Normal 35.1-43.9 [facility] Comment on above: Performed By: #### L 100.0500, L500.4050 ####[facility] [address] [place], [address] WBC (Bld) [#/Vol] 6.4 10*3/uL Normal 4.4-11.0 [facility] Comment on above: Performed By: #### L 100.0500, L500.4050 ####[facility] [address] [place], [address] Comprehensive Metabolic Prof [facility] 03-15-2024 Albumin [Mass/Vol] 3.1 g/dL Low 3.2-5.0 [facility] Comment on above: Performed By: #### L 100.0500, L500.4050 ####[facility] [address] [place], [address] Albumin/Globulin [Mass ratio] 0.9 {ratio} Normal 0.9-2.4 [facility] Comment on above: Performed By: #### L 100.0500, L500.4050 ####[facility] [address] [place], [address] ALK P 59 U/L Normal 45-117 [facility] Comment on above: Performed By: #### L 100.0500, L500.4050 ####[facility] [address] [place], [address] ALT [Catalytic activity/Vol] 43 U/L Normal 16-61 [facility] Comment on above: Performed By: #### L 100.0500, L500.4050 ####[facility] [address] [place], [address] AST [Catalytic activity/Vol] 16 U/L Normal 15-37 [facility] Comment on above: Performed By: #### L 100.0500, L500.4050 ####[facility] [address] [place], [address] Bilirubin [Mass/Vol] 0.40 mg/dL Normal 0.20-1.00 [facility] Comment on above: Result Comment: For patients on eltrombopag therapy, use of Dimension [place] TBIL is not recommended. Performed By: #### L 100.0500, L500.4050 ####[facility] [address] [place], [address] BUN/CRE 14.0 RATIO Normal 10-20 [facility] Comment on above: Performed By: #### L 100.0500, L500.4050 ####[facility] [address] [place], [address] CA,Total 8.8 mg/dL Normal 8.5-10.1 [facility] Comment on above: Performed By: #### L 100.0500, L500.4050 ####[facility] [address] [place], [address] Chloride [Moles/Vol] 111 mmol/L High 98-107 [facility] Comment on above: Performed By: #### L 100.0500, L500.4050 ####[facility] [address] [place], [address] CO2 [Moles/Vol] 22.0 mmol/L Normal 21.0-32.0 [facility] Comment on above: Performed By: #### L 100.0500, L500.4050 ####[facility] [address] [place], [address] Creatinine [Mass/Vol] 0.86 mg/dL Normal 0.70-1.30 [facility] Comment on above: Result Comment: The validity of the calculated GFR GFRAA in patients over 70 years has not been determined. Clinical correlation is essential. Performed By: #### L 100.0500, L500.4050 ####[facility] [address] [place], [address] ECRCL 130.66 ml/min Normal [facility] Comment on above: Performed By: #### L 100.0500, L500.4050 ####[facility] [address] [place], [address] EST GFR - AA 119 mL/min Normal >60 [facility] Comment on above: Result Comment: Afri can [place] GFR Calc Performed By: #### L 100.0500, L500.4050 ####[facility] [address] [place], [address] GAP 6 Normal 5-15 [facility] Comment on above: Performed By: #### L 100.0500, L500.4050 ####[facility] [address] [place], [address] GFR/1.73 sq M.predicted among non-blacks MDRD (S/P/Bld) [Vol rate/Area] 98 mL/min/{1.73_m2} Normal >60 [facility] Comment on above: Result Comment: Non- GFR Calc Performed By: #### L 100.0500, L500.4050 ####[facility] [address] [place], [address] Globulin (S) [Mass/Vol] 3.6 g/dL Normal 2.2-4.2 [facility] Comment on above: Performed By: #### L 100.0500, L500.4050 ####[facility] [address] [place], [address] Glucose [Mass/Vol] 130 mg/dL High 74-106 [facility] Comment on above: Result Comment: Fast ing Glucose result greater than or equal to 126 mg/dL suggests DIABETES MELLITUS per A.D.A. criteria. Performed By: #### L 100.0500, L500.4050 ####[facility] [address] [place], [address] Potassium [Moles/Vol] 3.9 mmol/L Normal 3.5-5.1 [facility] Comment on above: Performed By: #### L 100.0500, L500.4050 ####[facility] [address] [place], [address] Sodium [Moles/Vol] 140 mmol/L Normal 136-145 [facility] Comment on above: Performed By: #### L 100.0500, L500.4050 ####[facility] [address] [place], [address] T PROT 6.7 g/dL Normal 6.4-8.2 [facility] Comment on above: Performed By: #### L 100.0500, L500.4050 ####[facility] [address] [place], [address] Urea nitrogen [Mass/Vol] 12 mg/dL Normal 7-18 [facility] Comment on above: Performed By: #### L 100.0500, L500.4050 ####[facility] [address] [place], [address] Discharge Instructionon Discharge Instruction [facility] Medical Records Department [address] [place] [address] Instructions for Home/Discharge Instructions 03/15/24 0725 MR#: [id number] Acct: [id number] Name: KATERIN RIVERA Jr. Rep #: [id number] : 1970 54 From: José Miguel Martinez MD PCP: Dr. Bhupendra Jurado MD Status:ADM RITIKA Discharge Instructions Diet Discharge Diet: No restrictions (You may continue your normal diet.) Activity Discharge Activity: Return to Normal Activity Lifting Restrictions: 10 pounds and also avoid any pushing or pulling for 3 days after your test. Additional Activity Instructions:: You must have someone drive you home. Do not drive until instructed by your doctor. You must have someone stay with you all night after your test. Rest in bed or on the couch until the next morning. Limit the number of times you go up and down stairs the day of your test. Apply pressure to the puncture site if you sneeze or cough. Dressing / Incision Call your doctor if your incision/area has: Increased Pain/ Swelling, Increased Redness, Foul Smelling Discharge and Swelling at the incision site Call your doctor if you observe: Fever of 101 or Higher Additional Dressing/Incision Instructions:: Keep the dressing (bandage) on until the next morning. You may then shower, but do not take a tub bath for 5 days after your test. It is normal to have some tenderness and discomfort at the puncture site. Sometimes bruising also occurs. However, if pain, numbness, or coldness occurs below the puncture site (in your leg, toes, arms or fingers) call your doctor at once. You may have a small, marble sized knot at the puncture site. This is normal. Do not rub it. It will go away in 4-6 weeks. Bleeding can occur from the area where the puncture was done. Blood may spurt or drip from the site. If blood spurts, apply pressure right away to stop bleeding and call 911. Although rare, bleeding into the tissue (hematoma) can also occur. If this happens, a large, firm area goose egg under the skin will appear. If any of these occur, lie down as flat as you can and have someone apply firm pressure to the cath site with a gauze pad or a clean washcloth for 10-15 minutes. Call 911 or go to the Emergency Department. Follow Up Care When: Office will call you for follow-up Test Results: Test results from this visit will be discussed in further detail at your follow-up appointment, if applicable. Discharge Plan Admission Admit Date/Time: 03/14/24 12:36 Attending Provider: Logan Samuels Primary Care Provider: Bhupendra Jurado Discharge Orders/Prescriptions Prescriptions: New atorvastatin 80 mg Tablet 80 mg PO QHS Qty: 180 2RF Brilinta 90 mg Tablet 90 mg PO BID 180 Days Qty: 360 2RF Continued metoprolol succinate [Toprol XL] 50 mg tablet extended release 24 hr 50 mg PO BID Qty: 180 3RF metoprolol tartrate 25 mg tablet 25 mg PO .PRN PRN (Reason: for breakthrough arrythmia) Qty: 14 0RF aspirin 81 mg tablet,chewable 81 mg PO ONCE Qty: 7 0RF Discontinued flecainide 100 mg tablet 100 mg PO Q12H Qty: 180 3RF Referrals / Follow Up: Bhupendra Jurado MD [Primary Care Provider] - Disposition Disposition (needs filled in before D/C Order can be placed): Home, Self Care 03/15/24 0726 José Miguel Martinez MD CC: Dr. Bhupendra Jurado MD Signed Normal [facility] 12 Lead EKGon 03-14-[address] [facility] Cardiovascular Services [address] [place] [address] 12 Lead EKG 03/15/24 0540 MR#: [id number] Acct: [id number] Name: KATERIN RVIERA Jr. Rep #: [id number] : 1970 54 From: José Miguel Martinez MD Attending Dr: Dr. Logan Samuels MD Statu s: ADM RITIKA Ordering Dr: Logan Samuels MD Date: 4 Location: [facility] Sex: M C Admitted: 03/14/24 Test Reason : PCI Blood Pressure : / mmHG Vent. Rate : 069 BPM Atrial Rate : 069 BPM P-R Int : 156 ms QRS Dur : 090 ms QT Int : 414 ms P-R-T Axes : 018 000 007 degrees QTc Int : 443 ms Normal sinus rhythm Normal ECG Confirmed by MICHELLE CARRIZALES, JOSÉ MIGUEL ([id number]), associate editor VALENTE GILLILAND ([id number]) on 03/15/2024 9:46:29 AM Referred By: José Miguel Martniez Confirmed By:JOSÉ MIGUEL MARTINEZ MD 03/15/24 0946 Date José Miguel Martinez MD CC: Dr. José Miguel Martinez MD; Dr. Logan Samuels MD; Dr. Bhupendra Jurado MD Signed Normal [facility] Cardiac Cath Diagnosticon Cardiac Cath Diagnostic [facility] Imaging Services [address] [place] [address] Cardiac Cath Diagnostic MR#: [id number] Acct: [id number] Name: KATERIN RIVERA . Rep #: [id number] : 1970 54 From: José Miguel Martinez MD PCP: Dr. Bhupendra Jurado MD Status:[facility] Patient Name: KATERIN RIVERA Study Date: 03/14/2024 Performing: José Miguel Martinez MD Ht: 74 inches 187.96 cm : 1970 Wt: 259 lbs 117.48 kg Age: 54 Gender: male BSA: 2.43 PROCEDURE(S) PERFORMED DC01-(77750)LHC/COR/LV CLINICAL PROFILE AND INDICATIONS Indications: Suspected CAD Heart Failure: None Stress/Imaging Stress Echocardiogram: Yes Result: Positive High RiskStress Echocardiogram: Positive High Risk CAD Presentations: Stable angina. CONCLUSIONS Coronary artery disease with severe disease noted in the left anterior descending artery and moderate disease noted in the right coronary artery RECOMMENDATIONS Referred for immediate PCI DESCRIPTION OF PROCEDURE The patient arrived to the procedure lab. The risks and benefits of the procedure as well as a full description of our services here and current unavailability of surgical backup were fully explained to the patient and/or their significant other prior to the catheterization. The Timeout was completed, verifying the correct patient and procedure. The patient's procedural site was prepped and draped in the usual fashion. Local anesthetic was given subcutaneously to right radial region with Lidocaine 2%. Using a modified Seldinger technique, arterial access was obtained via the right radial artery, a 6Fr sheath was inserted. Right Coronary Artery selective angiography was then performed in multiple views using a 5 Fr. 4.0 Willard catheter. Left Coronary Artery selective angiography was performed in multiple views using a 5 Fr. 4.0 Willard catheter. Left Ventriculography was performed in ALMANZAR projection using a 5 Fr. Pigtail catheter. LV to AO pullback pressures were then recorded. CORONARY ANGIOGRAPHY DOMINANCE: Right Dominant LEFT HEART ASSESSMENT Left Ventricular Ejection Fraction: by LV Gram 60 % Normal LV wall motion Normal Left Ventricular systolic function LEFT MAIN: Angiographically normal LEFT ANTERIOR DESCENDING ARTERY: Medium size vessel with first diagonal branch with 80% proximal long stenosis in the proximal to mid left anterior descending artery with long 90% stenosis in the distal tip and 90% stenosis is present. CIRCUMFLEX ARTERY: Mild luminal irregularities RIGHT CORONARY ARTERY: Diffusely diseased vessel with areas of stenosis in the mid segment of 50 to 60% stenosis. No high-grade focal stenosis is present. COMPLICATIONS PROCEDURE MEDICATIONS Versed 1 mg IV Fentanyl 50 mcg IV Versed 1 mg IV Fentanyl 25 mcg IV Versed 1 mg IV Versed 1 mg IV Oxygen: 2 L/min via nasal cannula Brilinta 180 mg PO @ 03/14/2024 11:36:40 Heparin given IA 03/14/2024 10:08:48 Heparin 6000 unit(s) IV 03/14/2024 11:39:33 Verapamil 2.5mg, Ntg 100mcgs, 3000 units of Heparin given IA 03/14/2024 10:08:48 SUMMARY OF HEMODYNAMIC DATA Time AIR REST ECG 08:50:29 AO 112/54 (70) SA 10:22:04 LV 113/16, 22 10:35:57 LV 115/16, 20 10:36:05 LV 113/16, 21 10:37:05 LVp 118/15, 23 10:37:12 AOp 120/77 (97) 10:37:20 AO 131/82 (103) 11:42:10 11:42:18 Signed By José Miguel Martinez MD On 03/14/2024 11:51:00 José Miguel Martinez MD 03/14/24 1151 Date José Miguel Martinez MD Cosigner Signature: Date (if indicated) CC: Dr. José Miguel Martinez MD; Dr. Bhupendra Jurado MD Date Dictated: 03/14/24 1007 Date Transcribed: 03/14/24 115 [employer] Teacher: [place] Signed Normal [facility] Cardiac Cath Interventionon 03-14-[address] [facility] Imaging Services [address] [place] [address] Cardiac Cath Intervention MR#: [id number] Acct: [id number] Name: KATERIN RIVERA Rep #: [id number] : 1970 54 From: José Miguel Martinez MD PCP: Dr. Bhupendra Jurado MD Status:ADM RITIKA Patient Name: KATERIN RIVERA Study Date: 03/14/2024 Performing: Jose Samuels MD Ht: 74 inches 187.96 cm : 1970 Wt: 259.3 lbs 117.48 kg Age: 54 Gender: male BSA: 2.43 PROCEDURE(S) PERFORMED IC12-(31338/C9600)GOPI W/WO PTCA, SINGLE CORONARY ARTERY CLINICAL PROFILE AND CO-MORBIDITIES Indications: Suspected CAD Heart Failure: None Stress/Imaging Stress Echocardiogram: Yes Result: Positive High Risk Stress Echocardiogram: Positive High Risk CAD Presentations: Stable angina. CONCLUSIONS Successful PCI of proximal LAD/diagonal 1 bifurcation with drug-eluting stent to the LAD. RECOMMENDATIONS DESCRIPTION OF PROCEDURE The patient arrived to the procedure lab. The risks and benefits of the procedure as well as a full description of our services here and current unavailability of surgical backup were fully explained to the patient and/or their significant other prior to the catheterization. The Timeout was completed, verifying the correct patient and procedure. The patient's procedural site was prepped and draped in the usual fashion. Local anesthetic was given subcutaneously to right radial region with Lidocaine 2% Using a modified Seldinger technique,arterial access was obtained via the right radial artery, a 6Fr sheath was inserted. Right Coronary Artery selective angiography was then performed in multiple views using a 5 Fr. 4.0 Willard catheter. Left Coronary Artery selective angiography was performed in multiple views using a 5 Fr. 4.0 Willard catheter. Left Ventriculography was performed in ALMANZAR projection using a 5 Fr. Pigtail catheter. LV to AO pullback pressures were then recorded.The images were reviewed and options discussed. A decision was then made to proceed with an Intervention, IVUS or other adjunct procedure. XB 3.0 Guide catheter was inserted and engaged into the LCA. Runthrough Guide wire was advanced to the 1st Diagonal. BMW Guide wire was advanced to the LAD. 2.25 x 20 Emerge Balloon catheter was inserted. Balloon catheter was advanced across lesion in the LAD, proximal. PTCA balloon inflated at 10 atms for 23 secs. 2.5 x 30 [place] [employer] Eluting stent was inserted. Drug Eluting stent was advanced across the lesion in the LAD, proximal. Angiogram performed post stent deployment. Runthrough Guide wire was advanced to the 1st Diagonal. 1.2 x 15 Emerge Balloon catheter was inserted. Balloon catheter was advanced across lesion in the first diagonal, ostial. PTCA balloon inflated at 12 atms for 22 secs. PTCA balloon inflated at 20 atms for 18 secs. Angiogram performed post balloon dilatation. 1.5 x 15 Emerge Balloon catheter was advanced across lesion in the first diagonal, ostial. 2.5 x 20 NC Emerge Balloon catheter was advanced across lesion in the LAD, proximal. PTCA balloon inflated at 10 atms for 30 secs. PTCA balloon inflated at 10 atms for 20 secs. Angiogram performed post balloon dilatation. The arterial sheath was pulled and a TR Band was applied for hemostasis INTERVENTION INFORMATION LESION SITE: LAD (Proximal) Lesion Complexity: High/C, chronic total occlusion: No, lesion at bifurcation: Yes, thrombus present: No, lesion length: 28 mm, culprit lesion: Yes, Previously treated lesion: No Pre Stenosis: 90 % Pre intervention YOGI flow: 3 PROCEDURE: Drug Eluting Stent with pre and post dilatation The stent was deployed jailing diagonal branch that was pinched after stent deployment. We were able to cross the stent struts and into the diagonal branch and perform kissing balloon inflation with a 1.5 mm balloon in the diagonal branch and 2.5 mm NC balloon in the LAD. There was excellent angiographic result. There were no complications. Post Stenosis: 0 % Post intervention YOGI flow: 3 Lesion Devices: Garcia .014 190cm BMW [place] Straight Cordis 6 Fr XB3.0 100cm Guide Catheter Terumo .014 180cm Runthrough Extra Floppy straight [employer] Sci EMERGE MR 2.25x20 BALLOON Medtronic 2.50 x 30 JUAN FRONTIER GOPI Carl[employer] EMERGE MR 1.20x15 BALLOON Cralitos Sci EMERGE MR 1.50x15 BALLOON Carlitos Sci NC EMERGE MR 2.50x20 BALLOON COMPLICATIONS No Complications PROCEDURE MEDICATIONS Versed 1 mg IV Fentanyl 50 mcg IV Versed 1 mg IV Fentanyl 25 mcg IV Versed 1 mg IV Versed 1 mg IV Oxygen: 2 L/min via nasal cannula Brilinta 180 mg PO @ 03/14/2024 11:36:40 Heparin given IA 03/14/2024 10:08:48 Heparin 6000 unit(s) IV 03/14/2024 11:39:33 Verapamil 2.5mg, Ntg 100mcgs, 3000 units of Heparin given IA 03/14/2024 10:08:48 SUMMARY OF HEMODYNAMIC DATA Time AIR (more content not included)... Normal [facility] Basic Metabolic Profile (BMP )on 03-09-2024 BUN/CRE 16.6 RATIO Normal 10-20 [facility] Comment on above: Performed By: #### L 500.2500, L100.0100 ####[facility] [address] [place], [address] CA,Total 9.5 mg/dL Normal 8.5-10.1 [facility] Comment on above: Performed By: #### L 500.2500, L100.0100 ####[facility] [address] [place], [address] Chloride [Moles/Vol] 108 mmol/L High 98-107 [facility] Comment on above: Performed By: #### L 500.2500, L100.0100 ####[facility] [address] [place], [address] CO2 [Moles/Vol] 25.0 mmol/L Normal 21.0-32.0 [facility] Comment on above: Performed By: #### L 500.2500, L100.0100 ####[facility] [address] [place], [address] Creatinine [Mass/Vol] 0.96 mg/dL Normal 0.70-1.30 [facility] Comment on above: Result Comment: The validity of the calculated GFR GFRAA in patients over 70 years has not been determined. Clinical correlation is essential. Performed By: #### L 500.2500, L100.0100 ####[facility] [address] [place], [address] EST GFR - AA 104 mL/min Normal >60 [facility] Comment on above: Result Comment: Afri can [place] GFR Calc Performed By: #### L 500.2500, L100.0100 ####[facility] [address] [place], [address] GAP 5 Normal 5-15 [facility] Comment on above: Performed By: #### L 500.2500, L100.0100 ####[facility] [address] [place], [address] GFR/1.73 sq M.predicted among non-blacks MDRD (S/P/Bld) [Vol rate/Area] 86 mL/min/{1.73_m2} Normal >60 [facility] Comment on above: Result Comment: Non- GFR Calc Performed By: #### L 500.2500, L100.0100 ####[facility] [address] [place], [address] Glucose [Mass/Vol] 123 mg/dL High 74-106 [facility] Comment on above: Result Comment: Fast ing Glucose result from 100 to 125 mg/dL suggests IMPAIRED HOMEOSTASIS per A.D.A. criteria. Performed By: #### L 500.2500, L100.0100 ####[facility] [address] [place], [address] Potassium [Moles/Vol] 4.2 mmol/L Normal 3.5-5.1 [facility] Comment on above: Performed By: #### L 500.2500, L100.0100 ####[facility] [address] [place], [address] Sodium [Moles/Vol] 138 mmol/L Normal 136-145 [facility] Comment on above: Performed By: #### L 500.2500, L100.0100 ####[facility] [address] [place], [address] Urea nitrogen [Mass/Vol] 16 mg/dL Normal 7-18 [facility] Comment on above: Performed By: #### L 500.2500, L100.0100 ####[facility] [address] [place], [address] CBC W/Diff, Automatedon 2 -2023 Absolute Lymph 2.53 X10 3/uL Normal 0.83-4.51 [facility] Comment on above: Performed By: #### L 500.2500, L100.0100 ####[facility] [address] [place], [address] Absolute Neut 4.2 X10 3/uL Normal 2.0-7.7 [facility] Comment on above: Performed By: #### L 500.2500, L100.0100 ####[facility] [address] [place], [address] Basophils/100 WBC (Bld) 0.4 % Normal 0-1 [facility] Comment on above: Performed By: #### L 500.2500, L100.0100 ####[facility] [address] [place], [address] Eosinophils/100 WBC (Bld) 0.7 % Normal 0-5 [facility] Comment on above: Performed By: #### L 500.2500, L100.0100 ####[facility] [address] [place], [address] Erythrocyte distribution width (RBC) [Ratio] 12.4 % Normal 11.6-14.6 [facility] Comment on above: Performed By: #### L 500.2500, L100.0100 ####[facility] [address] [place], [address] Hematocrit (Bld) [Volume fraction] 45.4 % Normal 40-54 [facility] Comment on above: Performed By: #### L 500.2500, L100.0100 ####[facility] [address] [place], [address] Hemoglobin (Bld) [Mass/Vol] 15.3 g/dL Normal 13.0-16.5 [facility] Comment on above: Performed By: #### L 500.2500, L100.0100 ####[facility] [address] [place], [address] IG% 0.300 Normal 0.0-0.9 [facility] Comment on above: Result Comment: IG% - Immature Granulocytes (promyelocytes, myelocytes and metamyelocytes) > 1% indicates that a LEFT SHIFT is Present. Performed By: #### L 500.2500, L100.0100 ####[facility] [address] [place], [address] Lymphocytes/100 WBC (Bld) 33.2 % Normal 19-41 [facility] Comment on above: Performed By: #### L 500.2500, L100.0100 ####[facility] [address] [place], [address] MCH (RBC) [Entitic mass] 29.9 pg Normal 27.0-32.0 [facility] Comment on above: Performed By: #### L 500.2500, L100.0100 ####[facility] [address] [place], [address] MCHC (RBC) [Mass/Vol] 33.7 g/dL Normal 32-36 [facility] Comment on above: Performed By: #### L 500.2500, L100.0100 ####[facility] [address] [place], [address] MCV (RBC) [Entitic vol] 88.7 fL Normal 80-94 [facility] Comment on above: Performed By: #### L 500.2500, L100.0100 ####[facility] [address] [place], [address] Monocytes/100 WBC (Bld) 10.4 % High 0-10 [facility] Comment on above: Performed By: #### L 500.2500, L100.0100 ####[facility] [address] [place], [address] Neutrophils/100 WBC (Bld) 55.0 % Normal 47-70 [facility] Comment on above: Performed By: #### L 500.2500, L100.0100 ####[facility] [address] [place], [address] Nucleated RBC (Bld) [#/Vol] 0 10*3/uL Normal 0-5 [facility] Comment on above: Performed By: #### L 500.2500, L100.0100 ####[facility] [address] [place], [address] Platelet mean volume (Bld) [Entitic vol] 9.1 fL Normal 6.2-12.0 [facility] Comment on above: Performed By: #### L 500.2500, L100.0100 ####[facility] [address] [place], [address] Platelets (Bld) [#/Vol] 274 10*3/uL Normal 150-450 [facility] Comment on above: Performed By: #### L 500.2500, L100.0100 ####[facility] [address] [place], [address] RBC (Bld) [#/Vol] 5.12 10*6/uL Normal 4.6-6.2 [facility] Comment on above: Performed By: #### L 500.2500, L100.0100 ####[facility] [address] [place], [address] RDW SD 40.3 fl Normal 35.1-43.9 [facility] Comment on above: Performed By: #### L 500.2500, L100.0100 ####[facility] [address] [place], [address] WBC (Bld) [#/Vol] 7.6 10*3/uL Normal 4.4-11.0 [facility] Comment on above: Performed By: #### L 500.2500, L100.0100 ####[facility] [address] [place], [address] Chest PA and Lateralon 03-09 Chest [address] L[address] [facility] Imaging Services [address] [place] [address] Chest PA and Lateral MR#: [id number] Acct: [id number] Name: KATERIN RIVERA JrGiovani Rep #: [id number] : 1970 M 54 From: Pau Ascencio MD PCP: Dr. Bhupendra Jurado MD Status: PRE [facility] Study: Chest PA and Lateral Date of Exam: 03/09/24 Exam# [id number] Ordering Dr: Raghu Saunders PUBLIC WORKS INSPECTOR PUBLIC WORKS INSPECTOR-C [id number] EXAM: XR CHEST, 2 VIEWS CLINICAL INDICATION: Pre heart cath, LHC TECHNIQUE: Frontal and lateral views of the chest. COMPARISON: May 20, 2021, November 01, 2011. FINDINGS: LUNGS AND PLEURAL SPACES: Unremarkable. No consolidation or edema. No pneumothorax. No effusion. HEART: Unremarkable. Cardiac silhouette not enlarged. MEDIASTINUM: Central airways and mediastinal contour are unremarkable. BONES/JOINTS: There are old healed fractures of bilateral mid clavicles, similar to prior exam. Mild multilevel thoracic spondylosis is unchanged. SOFT TISSUES: Unremarkable. RAD/Chest PA and Lateral IMPRESSION: No acute findings in the chest. Electronically Signed: Pau Ascencio MD at 2:33 EDT , CC: TYLER Saunders; Dr. Bhupendra Jurado MD [employer] Teacher: Signed Normal [facility] Stress Test Echo w/o Contras ton 02-25-2024 Stress Test Echo w/o Contrast [facility] Cardiovascular Services [address] [place] [address] Stress Test Echo w/o Contrast MR#: [id number] Acct: [id number] Name: KATERIN RIVERA JrGiovani Rep #: [id number] : 1970 54 From: José Miguel Martinez MD Primary Care: Dr. Bhupendra Jurado MD Status: REG CLI Ordering Dr: Raghu Saunders NP PUBLIC WORKS INSPECTOR-C Sex: M C Reason For Study: CHEST PAIN Stress Results Protocol: Miguel Ángel Protocol Maximum Predicted HR: 164 bpm Target HR: 139 bpm % Maximum Predicted HR: 87 % DurationHeart Rate Stage (mm:ss) (bpm) BP BASELINE 71 128/86 STAGE 1 3:00 94 126/74 STAGE 2 3:00 105 120/70 STAGE 3 3:00 121 132/74 STAGE 4 2:16 142 142/78 RECOVERY 90 130/80 Stress Duration: 11:16 mm:ss Maximum Stress HR: 142 bpm Baseline Echocardiogram Findings Stress Echo Wall motion Data Resting WM Intermediate WM Stress WM ECHO/Stress Test Echo w/o Contrast Interpretation Summary Exercise stress echo. 54-year-old man with a history of chest pain. Rest EKG demonstrates normal sinus rhythm with a rate of 72 bpm normal intervals are noted resting blood pressure is 128/86 mmHg. The patient exercised according to the regular Miguel Ángel protocol for a total duration of 11 minutes and 15 seconds. Patient completed 2 minutes and 15 seconds stage IV of the Miguel Ángel protocol the maximum heart rate attained was 144 bpm which was 87% of max impacted heart rate the maximum workload was 13.7 metabolic equivalents. The patient maintained sinus rhythm throughout the recording. At rest there were no ST or T wave changes noted suggest ischemia and at peak exercise there was up to [address] depression noted in lead V4, V5 and V6 not suggestive of ischemia. No chest discomfort which noted. The test was terminated due to attainment of target heart rate. The peak blood pressure was 144/82 which was a blunted blood pressure response rate to exercise. Stress echocardiogram. Resting echocardiographic images demonstrated an ejection fraction of 55% at rest. No wall motion abnormalities were noted. With exercise there was reduction of low ventricular cavity size but the anterior wall appeared to exhibit less thickening and less contractions suggestive of a possible perfusion abnormality noted in the anterior wall. Conclusion: Abnormal exercise stress echocardiogram with evidence of mid anterior ischemia noted at a high workload. Good functional aerobic capacity. Ordering Physician: Raghu Saunders Referring Physician: Raghu Saunders Performed By: Terri Grijalva RCS 02/25/24 1730 Date José Miguel Martinez MD CC: TYLER Saunders; Dr. Bhupendra Jurado MD Date Dictated: 02/25/24 1318 Date Transcribed: 02/25/24 173 [employer] Teacher: Signed Normal [facility] OPERATIVE PROCEDURESon 11-18 OPERATIVE PROCEDURES [facility] OPERATIVE REPORT NAME ACCOUNT SEX AGE ADMIT DISCHARGE PT MED. RECORD# NUMBER DATE DATE TYPE CRISTOFER [id number] Igor 52 11/17/22 11/17/22 [place] [id number] ROOM: [facility] DATE OF : 1970 DICTATING PHYSICIAN: Kourtney Grande DATE OF SURGERY: November 17, 2022 SURGEON: Kourtney Grande MD HEDGE FUND MANAGER: ANESTHESIOLOGIST: ANESTHETIC: MAC. PREOPERATIVE DIAGNOSIS: Screening colonoscopy. POSTOPERATIVE DIAGNOSIS: Diverticulosis. OPERATION PERFORMED: Colonoscopy. COMPLICATIONS: None. ESTIMATED BLOOD LOSS: None. DRAINS: None. SPECIMEN: None. SIGNIFICANT FINDINGS: Bowel prep was good. Rare diverticulosis confined to the left colon without complication. Previous colonic anastomosis widely patent without abnormalities. DISPOSITION: Home. Diet: Regular. Activity: Regular. Medication: Regular. RECOMMENDATION: Repeat screening colonoscopy in 10 years. DESCRIPTION OF OPERATION: Following initiation of MAC anesthesia, the patient was placed in the left lateral decubitus position. A digital rectal examination was performed. There were no findings on digital rectal examination. Flexible colonoscope was then introduced into the anus and advanced to the ileocecal junction under direct Page 1 of 2 KATERIN RIVERA JR Operative Report KATERIN RIVERA : 1970 visualization. The scope was then slowly withdrawn and the colonic mucosa inspected meticulously. It was noted that the colonic prep was good. There were no abnormalities appreciated within the cecum, ascending colon, or transverse colon. Within the descending colon, the patient was found to have rare small diverticulosis without any complications. The patient's previous colonic anastomosis was widely patent without abnormalities. The scope was withdrawn into the rectum and retroflexed. There were no rectal abnormalities. The scope was then straightened, the colon desufflated, and the scope removed. The patient was then awakened and taken to the PACU in good and stable condition. Dictated By: Kourtney Grande MD 11/17/22 09:26 JOB #: [id number] Transcribed By: am 11/17/22 12:40 Electronically signed by: E-SIGN DR. GRANDE 11/18/22 08:47 Page 2 of 2 KATERIN RIVERA JR Operative Report Normal [facility] Laboratory - Chemistry and C hemistry - challengeon 03-12-2017 Albumin [Mass/Vol] 4.5 g/dL Normal 3.4 - 4.8 g/dL [facility].; [facility], [facility]. Albumin [Mass/Vol] 1.3 g/dL Normal 0.9 - 1.6 [facility].; [facility], [facility]. ALP [Catalytic activity/Vol] 54 U/L Normal 38 - 126 U/L [facility].; [facility], [facility]. ALT [Catalytic activity/Vol] 67 U/L Abnormal 10 - 40 U/L [facility].; [facility], [facility]. Anion gap [Moles/Vol] 10 mmol/L Normal 10 - 2 0 mmol/L [facility].; [facility], [facility]. AST [Catalytic activity/Vol] 30 U/L Normal 13 - 39 U/L [facility].; [facility], [facility]. Bilirubin [Mass/Vol] 0.6 mg/dL Normal 0.0 - 1 .5 mg/dL [facility].; [facility], [facility] Calcium [Mass/Vol] 9.8 mg/dL Normal 8.6 - 10. 2 mg/dL [facility].; [facility], [facility]. Chloride [Moles/Vol] 104 mmol/L Normal 98 - 10 7 mmol/L [facility].; [facility], [facility]. Cholesterol [Mass/Vol] 213 mg/dL Abnormal 0 - 2 00 mg/dL [facility].; [facility], [facility]. Cholesterol in HDL [Mass or moles/Vol] 34 mg/dL Abnormal 40 - 60 mg/dL [facility].; [facility], [facility]. Cholesterol in LDL [Mass/Vol] 164 mg/dL Abnormal 0 - 129 mg/dL [facility].; [facility], [facility]. Cholesterol.total/Shiloh sterol in HDL [Mass ratio] 6.3 {ratio} Abnormal 0.0 - 5.0 [facility]; [facility], [facility] CO2 [Moles/Vol] 24.6 mmol/L Normal 21.0 - 31.0 mmol/L [facility].; [facility], [facility] Comprehensive metabolic 2000 panel CMP with eGFR Normal [facility]; [facility] Creatinine [Mass/Vol] 1.0 mg/dL Normal 0.7 - 1.3 mg/dL [facility].; [place] [employer] [facility], [facility]. GFR/1.73 sq M.predicted among blacks MDRD (S/P/Bld) [Vol rate/Area] mL/min/{1.73_m2} Normal 60 - 999 {ML/MINUTE} [facility].; [place] [employer] [facility], [facility]. GFR/1.73 sq M.predicted MDRD (S/P/Bld) [Vol rate/Area] mL/min/{1.73_m2} Normal 60 - 999 {ML/MINUTE} [place] [employer] [facility].; [employer]. Globulin (S) [Mass/Vol] 3.5 g/dL Normal 1.5 - 3.8 g/dL [facility].; [place] [employer], [employer]. Glucose [Mass/Vol] 105 mg/dL Normal 74 - 106 mg/dL [place] [employer] [facility].; [employer]. Lipid 1996 panel LIPID PROFILE Normal [facility].; [employer], [employer]. Potassium [Moles/Vol] 3.7 mmol/L Normal 3.5 - 5.1 mmol/L [place] [employer] [facility].; [employer], [employer]. Protein [Mass/Vol] 8.0 g/dL Normal 6.4 - 8.3 g/dL [place] [employer] [facility].; [employer], [employer]. Sodium [Moles/Vol] 135 mmol/L Abnormal 136 - 145 mmol/L [place] [employer] [facility].; [employer], [employer]. Triglyceride [Mass/Vol] 73 mg/dL Normal 0 - 150 mg/dL [place] [employer] [facility].; [employer], [employer]. Urea nitrogen [Mass/Vol] 18 mg/dL Normal 6 - 20 mg/dL [place] [employer], [employer]. Urea nitrogen/Creatinine [Mass ratio] 18 {ratio} Normal 0 - 30 {ratio} [facility] [employer], [employer]. No Panel Informationon 03-12 AGE 47 {years} Normal [employer].; [employer]. Laboratory - Chemistry and C hemistry - challengeon 04-08-2016 Albumin [Mass/Vol] 4.3 g/dL Normal 3.4 - 4.8 g/dL [facility]; [facility] Albumin [Mass/Vol] 1.2 g/dL Normal 0.9 - 1.6 [facility]; [facility] ALP [Catalytic activity/Vol] 52 U/L Normal 38 - 126 U/L [facility].; [facility]. ALT [Catalytic activity/Vol] 46 U/L Abnormal 10 - 40 U/L [facility]; [facility], [facility] Anion gap [Moles/Vol] 16 mmol/L Normal 10 - 2 0 mmol/L [facility]; [facility] AST [Catalytic activity/Vol] 20 U/L Normal 13 - 39 U/L [facility]; [facility], [facility] Bilirubin [Mass/Vol] 0.6 mg/dL Normal 0.0 - 1 .5 mg/dL [facility]; [facility], [facility] Calcium [Mass/Vol] 9.9 mg/dL Normal 8.6 - 10. 2 mg/dL [facility]; [facility], [facility]. Chloride [Moles/Vol] 99 mmol/L Normal 98 - 10 7 mmol/L [facility]; [facility] CO2 [Moles/Vol] 26.0 mmol/L Normal 21.0 - 31.0 mmol/L [facility]; [facility], [facility] Comprehensive metabolic 2000 panel CMP with eGFR Normal [facility]; [facility], [facility] Creatinine [Mass/Vol] 0.9 mg/dL Normal 0.7 - 1.3 mg/dL [facility].; [facility], [facility]. CRP [Mass/Vol] 6.60 mg/dL Abnormal 0.00 - 1.00 mg/dL [facility]; [facility], [facility] GFR/1.73 sq M.predicted among blacks MDRD (S/P/Bld) [Vol rate/Area] mL/min/{1.73_m2} Normal 60 - 999 {ML/MINUTE} [facility].; [place] [employer], [employer]. GFR/1.73 sq M.predicted MDRD (S/P/Bld) [Vol rate/Area] mL/min/{1.73_m2} Normal 60 - 999 {ML/MINUTE} [facility], [facility].; [employer], [employer]. Globulin (S) [Mass/Vol] 3.7 g/dL Normal 1.5 - 3.8 g/dL [facility].; [employer]. Glucose [Mass/Vol] 102 mg/dL Normal 74 - 106 mg/dL [place] [employer] [facility].; [employer], [employer]. Potassium [Moles/Vol] 4.1 mmol/L Normal 3.5 - 5.1 mmol/L [facility].; [employer], [employer]. Protein [Mass/Vol] 8.0 g/dL Normal 6.4 - 8.3 g/dL [place] [employer] [facility]; [employer], [employer]. Sodium [Moles/Vol] 137 mmol/L Normal 136 - 145 mmol/L [place] [employer] [facility].; [employer], [employer]. Urea nitrogen [Mass/Vol] 13 mg/dL Normal 6 - 20 mg/dL [place] [employer], [employer]. Urea nitrogen/Creatinine [Mass ratio] 14 {ratio} Normal 0 - 30 {ratio} [place] [employer]. Laboratory - Hematology and Cell countson 04-08-2016 Basophils (Bld) [#/Vol] 0.10 {3/UL} Normal 0.00 - 0.10 {3/UL} [place] [employer] [facility].; [employer]. Basophils/100 WBC (Bld) 0.4 % Normal 0.0 - 2.0 % [place] [employer], [employer]. CBC W Auto Differential panel (Bld) CBC Normal [place] [employer], [employer]. Eosinophils (Bld) [#/Vol] 0.10 {3/UL} Normal 0.00 - 0.50 {3/UL} [place] [employer] [facility], [facility]. Eosinophils/100 WBC (Bld) 0.5 % Normal 0.0 - 7.0 % [facility], [facility].; [facility], [facility]. Erythrocyte distribution width (RBC) [Ratio] 13.1 % Normal 12.0 - 15.6 % [facility], [facility].; [facility], [facility] Hematocrit (Bld) [Volume fraction] 45.1 % Normal 40.0 - 52.0 % [facility], [facility].; [facility], [facility] Hemoglobin (Bld) [Mass/Vol] 15.7 g/dL Normal 13.0 - 17.5 g/dL [facility], [facility].; [facility], [facility] Lymphocytes (Bld) [#/Vol] 1.90 {3/UL} Normal 0.80 - 2.80 {3/UL} [facility], [facility].; [facility], [facility]. Lymphocytes/100 WBC (Bld) 15.4 % Abnormal 20.0 - 45.0 % [facility].; [place] [employer], [facility]. MCH (RBC) [Entitic mass] 30 pg Normal 27 - 33 pg [place] [employer] [facility].; [place] [employer], [facility]. MCHC (RBC) [Mass/Vol] 35 {X10_3} Normal 32 - 3 6 {X10_3} [facility], [facility].; [place] [employer], [facility]. MCV (RBC) [Entitic vol] 87 fL Normal 81 - 98 fL H [facility].; [place] [employer] [facility], [facility]. Monocytes (Bld) [#/Vol] 1.30 {3/UL} Abnormal 0.20 - 1.00 {3/UL} [facility], [facility].; [place] [employer], [facility]. Monocytes/100 WBC (Bld) 10.5 % Abnormal 0.0 - 10.0 % [facility], [facility].; [place] [employer], [facility] Morphology Fercho (Bld) [Interp] N/A Normal [facility], [facility].; [place] [employer] [facility], [facility]. Neutrophils (Bld) [#/Vol] 9.00 {3/UL} Abnormal 1.50 - 7.10 {3/UL} [facility].; [place] [employer] [facility] Neutrophils/100 WBC (Bld) 73.2 % Normal 46.0 - 76.0 % [place] [employer] Platelet mean volume (Bld) [Entitic vol] 7.4 fL Normal 6.4 - 10.5 fL [place] [employer]. Platelets (Bld) [#/Vol] 273 {3/UL} Normal 150 - 450 {3/UL} [place] [employer]. RBC (Bld) [#/Vol] 5.18 {6/UL} Normal 4.50 - 6.0 0 {6/UL} [place] [employer]. WBC (Bld) [#/Vol] 12.2 {3/UL} Abnormal 4.5 - 10.8 {3/UL} [employer].; [employer]. No Panel Informationon 04-08 AGE 46 {years} Normal [place] [employer] MANUAL DIFF N/A Normal [place] [employer] Laboratory - Chemistry and C hemistry - challengeon 03-04-2016 Albumin [Mass/Vol] 4.3 g/dL Normal 3.4 - 4.8 g/dL [place] [employer]. Albumin [Mass/Vol] 1.2 g/dL Normal 0.9 - 1.6 [place] [employer]. ALP [Catalytic activity/Vol] 48 U/L Normal 38 - 126 U/L [place] [employer]. ALT [Catalytic activity/Vol] 67 U/L Abnormal 10 - 40 U/L [employer].; [employer]. Anion gap [Moles/Vol] 13 mmol/L Normal 10 - 2 0 mmol/L [place] [employer], [employer]. AST [Catalytic activity/Vol] 35 U/L Normal 13 - 39 U/L [place] [employer]. Bilirubin [Mass/Vol] 0.5 mg/dL Normal 0.0 - 1 .5 mg/dL [facility], [facility].; [facility], [facility]. Calcium [Mass/Vol] 9.5 mg/dL Normal 8.6 - 10. 2 mg/dL [facility], [facility].; [facility], [facility]. Chloride [Moles/Vol] 99 mmol/L Normal 98 - 10 7 mmol/L [facility], [facility].; [facility], [facility]. Cholesterol [Mass/Vol] 196 mg/dL Normal 0 - 2 00 mg/dL [facility], [facility].; [facility], [facility]. Cholesterol in HDL [Mass or moles/Vol] 36 mg/dL Abnormal 40 - 60 mg/dL [facility], [facility].; [facility], [facility] Cholesterol in LDL [Mass/Vol] 135 mg/dL Abnormal 0 - 129 mg/dL [facility], [facility].; [facility], [facility]. Cholesterol.total/Shiloh sterol in HDL [Mass ratio] 5.4 {ratio} Abnormal 0.0 - 5.0 [facility].; [facility], [facility]. CO2 [Moles/Vol] 28.0 mmol/L Normal 21.0 - 31.0 mmol/L [facility], [facility].; [facility], [facility]. Comprehensive metabolic 2000 panel CMP with eGFR Normal [facility].; [facility], [facility] Creatinine [Mass/Vol] 0.9 mg/dL Normal 0.7 - 1.3 mg/dL [facility], [facility].; [facility], [facility]. GFR/1.73 sq M.predicted among blacks MDRD (S/P/Bld) [Vol rate/Area] mL/min/{1.73_m2} Normal 60 - 999 {ML/MINUTE} [facility], [facility].; [facility], [facility]. GFR/1.73 sq M.predicted MDRD (S/P/Bld) [Vol rate/Area] mL/min/{1.73_m2} Normal 60 - 999 {ML/MINUTE} [facility], [facility].; [facility] Globulin (S) [Mass/Vol] 3.5 g/dL Normal 1.5 - 3.8 g/dL [facility], [facility].; [facility], [facility]. Glucose [Mass/Vol] 104 mg/dL Normal 74 - 106 mg/dL [facility]; [facility] Lipid 1996 panel LIPID PROFILE Normal [facility]; [facility] Potassium [Moles/Vol] 4.1 mmol/L Normal 3.5 - 5.1 mmol/L [facility] [address]; [facility] Protein [Mass/Vol] 7.8 g/dL Normal 6.4 - 8.3 g/dL [facility]; [place] [employer] [facility] Sodium [Moles/Vol] 136 mmol/L Normal 136 - 145 mmol/L [facility]; [facility] Triglyceride [Mass/Vol] 125 mg/dL Normal 0 - 150 mg/dL [facility]; [place] [employer] [facility] Urea nitrogen [Mass/Vol] 14 mg/dL Normal 6 - 20 mg/dL [facility]; [facility] Urea nitrogen/Creatinine [Mass ratio] 16 {ratio} Normal 0 - 30 {ratio} [facility]; [place] [employer] [facility] No Panel Informationon 03[birth year]04 AGE 46 {years} Normal [facility]; [place] [employer] [facility] Laboratory - Chemistry and C hemistry - challengeon 02-21-2012 Albumin [Mass/Vol] 4.0 g/dL Normal 3.4 - 5.0 g/dL [facility]; [facility] Albumin/Globulin [Mass ratio] 1.1 {ratio} Normal [facility]; [place] [employer] [facility] ALP [Catalytic activity/Vol] 58 U/L Normal 50 - 136 U/L [facility].; [place] [employer] [facility]. ALT [Catalytic activity/Vol] 33 mmol/L Normal 12 - 49 mmol/L [facility]; [place] [employer] [facility], [facility]. AST [Catalytic activity/Vol] 18 U/L Normal 15 - 37 U/L [facility]; [place] [employer] [facility] Bilirubin [Mass/Vol] 0.40 mg/dL Normal 0.0 - 1 .0 mg/dL [facility].; [facility]. Bilirubin Ql (U) Negative Normal [facility].; [facility] Bilirubin.conjugated [Mass/Vol] 0.10 mg/dL Normal 0.01 - 0.2 mg/dL [facility].; [facility]. Calcium [Mass/Vol] 9.2 mg/dL Normal 8.4 - 10. 6 mg/dL [facility].; [facility]. Chloride [Moles/Vol] 103 mmol/L Normal 98 - 11 0 mmol/L [facility].; [facility]. Cholesterol [Mass/Vol] 171 mg/dL Normal 0 - 2 00 mg/dL [facility].; [facility]. Cholesterol in HDL [Mass/Vol] 53 mg/dL Normal 40 - 60 mg/dL [facility].; [facility]. Cholesterol in LDL [Mass/Vol] 110 mg/dL Normal 50.0 - 130.0 mg/dL [facility]; [facility]. Cholesterol in VLDL [Mass/Vol] 8 mg/dL Normal [facility]; [facility] Cholesterol.total/Shiloh sterol in HDL [Mass ratio] - Normal 0 - 5.0 [facility]; [facility]. CO2 [Moles/Vol] 24.0 {karma/L} Normal 22.0 - 32.0 {karma/L} [facility].; [facility]. Creatinine [Mass/Vol] 1.0 mg/dL Normal 0.6 - 1.4 mg/dL [facility].; [facility]. Gamma glutamyl transferase [Catalytic activity/Vol] - Normal [facility]; [facility]. Globulin (S) [Mass/Vol] 3.8 g/dL Normal 1.5 - 3.8 g/dL [facility].; [place] [employer] [facility], [facility]. Glucose [Mass/Vol] 101 mg/dL Normal 75 - 105 mg/dL [facility].; [facility] Ketones Ql (U) Negative Normal [facility]; [facility] LDH [Catalytic activity/Vol] 195 U/L Normal 120 - 246 U/L [facility]; [facility] pH (U) 5.5 [pH] Normal 4.6 - 8.0 [facility]; [facility] Potassium [Moles/Vol] 3.9 mmol/L Normal 3.50 - 5.00 meq/L [facility]; [facility] Protein [Mass/Vol] 7.8 g/dL Normal 6.4 - 8.2 g/dL [facility]; [facility] Sodium [Moles/Vol] 137 mmol/L Normal 136 - 145 mmol/L [facility]; [facility] Specific gravity (U) [Rel density] 1.010 Normal 1.001 - 1.025 [facility]; [facility] Triglyceride [Mass/Vol] 38 mg/dL Abnormal 40 - 150 mg/dL [facility]; [facility] Urate [Mass/Vol] 5.3 mg/dL Normal 3.1 - 7.8 mg/dL [facility]; [facility] Urea nitrogen [Mass/Vol] 16 mg/dL Normal 7.0 - 20.0 mg/dL [facility]; [facility] Urea nitrogen/Creatinine [Mass ratio] 16.0 mg/mg Normal 0 - 30 [facility]; [facility] Laboratory - Hematology and Cell countson 02-21-2012 Erythrocyte distribution width (RBC) [Ratio] 12.8 % Normal 12.0 - 15.6 % [facility]; [facility] Hematocrit (Bld) [Volume fraction] 40.1 % Normal 36 - 44 % [facility]; [facility] Hemoglobin (Bld) [Mass/Vol] 13.8 g/dL Normal 11.5 - 14.2 g/dL [facility]; [facility] Hemoglobin Ql (U) Negative Normal [facility] [employer] MCH (RBC) [Entitic mass] 30.5 pg Normal 27 - 33 pg [facility] [employer], [employer]. MCHC (RBC) [Mass/Vol] 34.3 g/dL Normal 32 - 36 g/dL H [facility], [employer].; [employer], [employer]. MCV (RBC) [Entitic vol] 88.7 fL Normal 81 - 98 fL H [facility] [employer], [employer]. Platelet mean volume (Bld) [Entitic vol] 7.3 fL Normal 6.6 - 10.5 fL [place] [employer], [employer]. Platelets (Bld) [#/Vol] 265 10*9{Cells}/L Normal 150 - 450 10*9{Cells}/ L [place] [employer], [employer]. RBC (Bld) [#/Vol] 4.52 10*6/uL Normal 4.10 - 5.3 0 10*6/uL [place] [employer]. WBC (Bld) [#/Vol] 7.4 10*9{Cells}/L Normal 4.5 - 10.8 10*9{Cells}/ L [place] [employer]. Laboratory - Specimen inform ationon 02-21-2012 Appearance (U) clear Normal [employer] Color (U) yellow Normal [employer].; [employer]. Laboratory - Urinalysison Epithelial cells LM.HPF (Urine sed) [#/Area] - Normal 0 - 2 {hpf} [employer]. Glucose Test strip (U) [Mass/Vol] Negative Normal [employer].; [employer], [employer]. Leukocyte esterase Test strip Ql (U) Negative Normal [employer].; [employer], [employer]. Nitrite Ql (U) Negative Normal [employer].; [employer]. Protein Ql (U) Negative Normal [employer]. RBC LM.HPF (Urine sed) [#/Vol] - Normal 0 - 2 {hpf} [employer]. Reducing substances (U) [Mass/Vol] - Normal [employer]. Urinalysis microscopic panel (Urine sed) - Normal [employer]. WBC LM.HPF (Urine sed) [#/Area] - Normal 0 - 2 {hpf} [employer]. No Panel Informationon 02-20 BILIRUBIN, INDIRECT - Normal 0.0 - 0. 7 mg/dL [employer]. GFR 86 Normal [employer]. GFR2 104 Normal [employer]. UA - COMMENTS - Normal [employer]. UA - UROBILINOGEN 0.2 mg/dL Normal [employer]. Vital Signs Date Time Vital Sign Value Performing Clinician Devyni bianca 12-13-2024 11:19-0400 Body weight 115.3 kg Johnna Davis MD Work Phone: [facility] 12-13-2024 11:19-0400 Diastolic blood pressure 73 mm[Hg] Johnna Davis MD Work Phone: [facility] 12-13-2024 11:19-0400 Heart rate 71 /min Johnna Davis MD Work Phone: [facility] 12-13-2024 11:19-0400 SaO2% (BldA) [Mass fraction] 95 % Johnna Davis MD Work Phone: [facility] 12-13-2024 11:19-0400 Systolic blood pressure 110 mm[Hg] Johnna Davis MD Work Phone: [facility] 12-10-2024 03:20-0400 Body temperature 98.1 [degF] Dr. Bhupendra Jurado MD Work Phone: 3(654)288-313724 [place] [address] 12-10-2024 03:20-0400 Diastolic blood pressure 77 mm[Hg] Dr. Bhupendra Jurado MD Work Phone: 8([phone])011-719624 [place] [address] 12-10-2024 03:20-0400 Heart rate 81 /min Dr. Bhupendra Jurado MD Work Phone: 8(073)830-267841 [place] [address] 12-10-2024 03:20-0400 Respiratory rate 19 /min Dr. Bhupendra Jurado MD Work Phone: 0([phone])448-821041 [place] [address] 12-10-2024 03:20-0400 SaO2% (BldA) [Mass fraction] 100 % Dr. Bhupendra Jurado MD Work Phone: 2(297)722-159541 [place] [address] 12-10-2024 03:20-0400 Systolic blood pressure 129 mm[Hg] Dr. Bhupendra Jurado MD Work Phone: 9(068)339-277241 [place] [address] 12-10-2024 02:41-0400 Inhaled oxygen flow rate 2 L/min Dr. Bhupendra Jurado MD Work Phone: 2(710)[phone] [place] [address] 12-10-2024 00:43-0400 Body height 187.[address] Bhupendra Jurado MD Work Phone: 9(735)116-473741 [place] [address] 12-10-2024 00:43-0400 Body mass index (BMI) [Ratio] 33.1 kg/m2 Dr. Bhupendra Jurado MD Work Phone: 5(084)766-148941 [place] [address] 12-10-2024 00:43-0400 Body weight 117.[address] Bhupendra Jurado MD Work Phone: 1([phone])[phone] [place] [address] 04-09-2018 13:55-0400 Body height 186.69 cm Imelda Cutler LPN [facility] 04-09-2018 13:55-0400 Body mass index (BMI) [Ratio] 31.76 kg/m2 Imelda Cutler LPN [facility] 04-09-2018 13:55-0400 Body surface area Derived from formula 2.35 m2 Imelda Cutler LPN [facility], [facility]. 04-09-2018 13:55-0400 Body weight 110.68 kg Imelda Costa Omayra [facility], [facility].; [employer], [employer]. 04-09-2018 13:55-0400 Diastolic blood pressure 81 mm[Hg] Imelda Costa Omayra CAMPBELL [place] [employer] [facility] [employer]. Comment on above: Patient Position: Sitting; Cuff Location : Left Arm; Cuff Size: Standard 04-09-2018 13:55-0400 Heart rate 90 /min Imelda Costa Omayra [employer] [facility] [employer]. Comment on above: Pattern: Regular 04-09-2018 13:55-0400 Systolic blood pressure 142 mm[Hg] Imelda Costa Omayra [facility] [employer] [facility] [employer]. Comment on above: Patient Position: Sitting; Cuff Location : Left Arm; Cuff Size: Standard 03-13-2017 09:54-0400 Body height 186.69 cm Kerry Ross LPN [facility] [employer], [employer]. 03-13-2017 09:54-0400 Body mass index (BMI) [Ratio] 31.1 kg/m2 Kerry Ross LPN [place] [employer] [facility] [employer], [employer]. 03-13-2017 09:54-0400 Body surface area Derived from formula 2.33 m2 Kerry Ross LPN [place] [employer] [facility] [employer], [employer]. 03-13-2017 09:54-0400 Body weight 108.41 kg Kerry Ross LPN [place] [employer] [facility] [employer], [employer]. 03-13-2017 09:54-0400 Diastolic blood pressure 77 mm[Hg] Kerry Ross LPN [place] [employer] [facility] [employer], [employer]. Comment on above: Patient Position: Sitting; Cuff Location : Left Arm; Cuff Size: Standard 03-13-2017 09:54-0400 Heart rate 93 /min Kerry Ross LPN [place] [employer] [facility] [employer]. Comment on above: Pattern: Regular 03-13-2017 09:54-0400 Systolic blood pressure 123 mm[Hg] Kerry Ross LPN [employer], [employer].; [employer]. Comment on above: Patient Position: Sitting; Cuff Location : Left Arm; Cuff Size: Standard 04-07-2016 16:41-0400 Body height 186.69 cm Tameka Feliz Mutersbaugh [employer] [facility] [employer]. 04-07-2016 16:41-0400 Body mass index (BMI) [Ratio] 32.15 kg/m2 Tameka K Mutersbaugh [employer], [employer].; [employer]. 04-07-2016 16:41-0400 Body surface area Derived from formula 2.37 m2 Tameka K Mutersbaugh [employer]. 04-07-2016 16:41-0400 Body temperature 99.1 [degF] Tameka K Mutersbaugh [employer], [employer].; [employer]. 04-07-2016 16:41-0400 Body weight 112.04 kg Tameka K [place]augh [employer], [employer].; [employer]. 04-07-2016 16:41-0400 Diastolic blood pressure 108 mm[Hg] Tameka K Mutersbaugh [employer], [employer].; [employer]. Comment on above: Patient Position: Sitting; Cuff Location : Left Arm; Cuff Size: Standard 04-07-2016 16:41-0400 Heart rate 104 /min Tameka K [place]augh [employer], [employer].; [employer]. Comment on above: Pattern: Regular 04-07-2016 16:41-0400 Systolic blood pressure 166 mm[Hg] Tameka K [place]ersbaugh [employer]. Comment on above: Patient Position: Sitting; Cuff Location : Left Arm; Cuff Size: Standard 03-28-2016 07:53-0400 Body height 186.69 cm Bhupendra Jurado MD Work Phone: [employer]. 03-28-2016 07:53-0400 Body mass index (BMI) [Ratio] 31.62 kg/m2 Bhupendra Jurado MD Work Phone: [employer] 03-28-2016 07:53-0400 Body surface area Derived from formula 2.35 m2 Bhupendra Jurado MD Work Phone: [employer] 03-28-2016 07:53-0400 Body weight 110.22 kg Bhupendra Jurado MD Work Phone: [employer] 03-28-2016 07:53-0400 Diastolic blood pressure 82 mm[Hg] Bhupendra Jurado MD Work Phone: [employer] Comment on above: Patient Position: Sitting; Cuff Location : Left Arm; Cuff Size: Standard 03-28-2016 07:53-0400 Heart rate 99 /min Bhupendra Jurado MD Work Phone: [employer]; [employer]. Comment on above: Pattern: Regular 03-28-2016 07:53-0400 Systolic blood pressure 132 mm[Hg] Bhupendra Jurado MD Work Phone: [employer] Comment on above: Patient Position: Sitting; Cuff Location : Left Arm; Cuff Size: Standard 01-25-2016 09:38-0400 Body height 186.69 cm Maliha Hooks LPN [employer]. 01-25-2016 09:38-0400 Body mass index (BMI) [Ratio] 30.84 kg/m2 Maliha Hooks LPN [employer].; [employer]. 01-25-2016 09:38-0400 Body surface area Derived from formula 2.32 m2 Maliha Hooks LPN [employer]. 01-25-2016 09:38-0400 Body temperature 98.4 [degF] Maliha Hooks LPN [employer]. Comment on above: Method: Tympanic 01-25-2016 09:38-0400 Body weight 107.5 kg Maliha Hooks ADRIAN [facility] [employer] 01-25-2016 09:38-0400 Diastolic blood pressure 97 mm[Hg] Maliha Zambrano [place] [employer] [facility] [employer], [employer] Comment on above: Patient Position: Sitting; Cuff Location : Right Arm; Cuff Size: Large 01-25-2016 09:38-0400 Heart rate 87 /min Maliha Zambrano [place] [employer] [facility] [employer], [employer] Comment on above: Pattern: Regular 01-25-2016 09:38-0400 Systolic blood pressure 139 mm[Hg] Maliha Hooks [employer] [facility] [employer], [employer] Comment on above: Patient Position: Sitting; Cuff Location : Right Arm; Cuff Size: Large 05-22-2015 12:58-0500 Body height 186.69 cm Tata Lancaster [facility], [facility] [employer], [employer] 05-22-2015 12:58-0500 Body mass index (BMI) [Ratio] 30.19 kg/m2 Tata Lancaster [facility] [employer], [employer] 05-22-2015 12:58-0500 Body surface area Derived from formula 2.3 m2 [place]ani [place] [employer] [facility] [employer], [employer] 05-22-2015 12:58-0500 Body weight 105.24 kg Tata Lancaster [facility] [employer] [facility] [employer], [employer]. 05-22-2015 12:58-0500 Diastolic blood pressure 72 mm[Hg] Tata Lancaster [facility] [employer] [facility] [employer], [employer]. Comment on above: Patient Position: Sitting; Cuff Location : Left Arm; Cuff Size: Large 05-22-2015 12:58-0500 Heart rate 90 /min Tata Lancaster [facility] [employer] [facility] [employer]. Comment on above: Pattern: Regular 05-22-2015 12:58-0500 Systolic blood pressure 143 mm[Hg] Tata Lancaster [facility] [employer], [employer]. Comment on above: Patient Position: Sitting; Cuff Location : Left Arm; Cuff Size: Large 09-04-2014 09:30-0400 Body weight 100.7 kg Kerry Ross [facility], [facility].; [employer] 09-04-2014 09:30-0400 Diastolic blood pressure 82 mm[Hg] Kerry Ross [facility] [employer], [employer]. Comment on above: Patient Position: Sitting; Cuff Location : Left Arm; Cuff Size: Standard 09-04-2014 09:30-0400 Heart rate 103 /min Kerry Ross [facility] [employer], [employer]. Comment on above: Pattern: Regular 09-04-2014 09:30-0400 Systolic blood pressure 130 mm[Hg] Kerry Ross [facility] [employer], [employer]. Comment on above: Patient Position: Sitting; Cuff Location : Left Arm; Cuff Size: Standard 03-08-2014 14:22-0400 Body height 186.69 cm Tata Lancaster [facility] [employer], [employer] 03-08-2014 14:22-0400 Body mass index (BMI) [Ratio] 29.15 kg/m2 Tata Lancaster [facility], [facility].; [employer] 03-08-2014 14:22-0400 Body surface area Derived from formula 2.27 m2 Tata Lancaster [facility] [employer], [employer]. 03-08-2014 14:22-0400 Body weight 101.61 kg Tata Lancaster [facility] [employer], [employer]. 03-08-2014 14:22-0400 Diastolic blood pressure 87 mm[Hg] Tata Lancaster [facility] [employer], [employer]. Comment on above: Patient Position: Sitting; Cuff Location : Left Arm; Cuff Size: Large 03-08-2014 14:22-0400 Heart rate 90 /min Tata Lancaster [facility] [employer], [employer]. Comment on above: Pattern: Regular 03-08-2014 14:22-0400 Systolic blood pressure 122 mm[Hg] Tata Lancaster [facility] [employer], [employer] Comment on above: Patient Position: Sitting; Cuff Location : Left Arm; Cuff Size: Large 02-22-2013 10:09-0400 Body height 185.42 cm Tata Lancaster [facility] [employer] 02-22-2013 10:09-0400 Body mass index (BMI) [Ratio] 27.57 kg/m2 Tata Lancaster [facility] [employer] 02-22-2013 10:09-0400 Body surface area Derived from formula 2.19 m2 [facility] Tonny [facility].; [employer], [employer]. 02-22-2013 10:09-0400 Body weight 94.8 kg Tata Lancaster [facility] [employer], [employer]. 02-22-2013 10:09-0400 Diastolic blood pressure 83 mm[Hg] Tata Lancaster [facility] [employer], [employer]. Comment on above: Patient Position: Sitting; Cuff Location : Left Arm; Cuff Size: Large 02-22-2013 10:09-0400 Heart rate 97 /min Tata Lancaster [facility] [employer]. Comment on above: Pattern: Regular 02-22-2013 10:09-0400 Systolic blood pressure 125 mm[Hg] RaniAmi Lancaster [facility], [facility].; [employer], [employer]. Comment on above: Patient Position: Sitting; Cuff Location : Left Arm; Cuff Size: Large 07-16-2012 09:08-0500 Body height 185.42 cm Maliha Hooks [facility] [employer] [facility] [employer], [employer]. 07-16-2012 09:08-0500 Body mass index (BMI) [Ratio] 27.71 kg/m2 Maliha Zambrano Jessee CAMPBELL [facility] [employer] [facility] Inc[facility] 07-16-2012 09:08-0500 Body surface area Derived from formula 2.2 m2 Maliha Kenya Hooks [facility], [facility].; [employer] 07-16-2012 09:08-0500 Body temperature 98.9 [degF] Maliha Kenya Hooks [facility] [employer], [employer] Comment on above: Method: Tympanic 07-16-2012 09:08-0500 Body weight 95.26 kg Maliha Kenya Hooks [facility] [employer], [employer]. 07-16-2012 09:08-0500 Diastolic blood pressure 85 mm[Hg] Maliha Kenya Hooks [facility] [employer], [employer] Comment on above: Patient Position: Sitting; Cuff Location : Left Arm; Cuff Size: Large 07-16-2012 09:08-0500 Heart rate 90 /min Maliha Kenya Armstrong [facility] [employer], [employer] Comment on above: Pattern: Regular 07-16-2012 09:08-0500 Systolic blood pressure 142 mm[Hg] Maliha Kenya Jessee [facility] [employer] Comment on above: Patient Position: Sitting; Cuff Location : Left Arm; Cuff Size: Large 03-02-2012 10:59-0400 Body height 185.42 cm [facility] [employer], [employer]. 03-02-2012 10:59-0400 Body mass index (BMI) [Ratio] 26.39 kg/m2 [facility] [employer] [employer], [employer]. 03-02-2012 10:59-0400 Body surface area Derived from formula 2.15 m2 [facility] [employer] [facility].; [employer], [employer]. 03-02-2012 10:59-0400 Body weight 90.72 kg [facility] [employer] [facility], [employer]. 03-02-2012 10:59-0400 Diastolic blood pressure 85 mm[Hg] Tata Lancaster [facility], [facility].; [employer], [employer]. Comment on above: Patient Position: Sitting; Cuff Location : Left Arm; Cuff Size: Large 03-02-2012 10:59-0400 Heart rate 89 /min Tata Lancaster [facility] [employer] Comment on above: Pattern: Regular 03-02-2012 10:59-0400 Systolic blood pressure 125 mm[Hg] Tata Lancaster [facility] [employer], [employer]. Comment on above: Patient Position: Sitting; Cuff Location : Left Arm; Cuff Size: Large 04-18-2011 10:49-0400 Body weight 105.69 kg Kerry Ross TRIMMER SAWYER [facility].; [employer] 04-18-2011 10:49-0400 Diastolic blood pressure 85 mm[Hg] Kerry Ross [facility], [facility] [employer], [employer]. Comment on above: Patient Position: Sitting; Cuff Location : Left Arm; Cuff Size: Standard 04-18-2011 10:49-0400 Heart rate 92 /min Kerry Ross LPN [facility], [facility].; [employer], [employer]. Comment on above: Pattern: Regular 04-18-2011 10:49-0400 Systolic blood pressure 140 mm[Hg] Kerry Ross [facility] [employer], [employer]. Comment on above: Patient Position: Sitting; Cuff Location : Left Arm; Cuff Size: Standard 03-19-2010 09:13-0400 Body height 185.42 cm Tata Lancaster [facility], [facility].; Marie [employer] 03-19-2010 09:13-0400 Body mass index (BMI) [Ratio] 30.48 kg/m2 Rani Tonny [facility], [facility].; [employer] 03-19-2010 09:13-0400 Body surface area Derived from formula 2.29 m2 [facility] Tonny [facility], [employer].; [facility] 03-19-2010 09:130400 Body temperature 98.6 [degF] Tata Lancaster [facility].; [place] [employer] [facility] Comment on above: Method: Tympanic 03-19-2010 09:130400 Body weight 104.78 kg Tata Lancaster [facility].; [place] [employer] [facility] 03-19-2010 09:130400 Diastolic blood pressure 83 mm[Hg] Tata Lancaster [facility].; [place] [employer] [facility] Comment on above: Patient Position: Sitting; Cuff Location : Left Arm; Cuff Size: Large 03-19-2010 09:040 Heart rate 102 /min [facility] [place] [facility].; [place] [employer] [facility] Comment on above: Pattern: Regular 03-19-2010 09:130400 Systolic blood pressure 141 mm[Hg] Tata Lancaster [facility].; [place] [employer]. Comment on above: Patient Position: Sitting; Cuff Location : Left Arm; Cuff Size: Large Encounters Encounter Date Encounter Type Care Provider Facility Start: 12-14-2024 End: 12-14-2024 Historical Summary Bhupendra Jurado MD [facility] Start: 12-13-2024 End: 12-13-2024 Office outpatient new 45 minutes Johnna Davis MD Work Phone: [facility] [place] Comment on above: Persistent atrial fi brillation (HCC) (Primary Dx); At risk for stroke; Coronary artery disease involving minto coronary artery of minto heart without angina pectoris; History of percutaneous coronary intervention Start: 12-13-2024 End: 12-13-2024 ambulatory JOHNNA DAVIS Facility:[facility] Start: 12-10-2024 End: 12-10-2024 Emergency department patient visit Dr. Bhupendra Jurado MD Work Phone: Emergency Department Work Phone: Start: 11-11-2024 End: 05-30-2025 ambulatory MARIBELL CHENG Facility:[facility] Start: 11-11-2024 End: 11-11-2024 Subsequent hospital visit by physician [facility] Work Phone: Radiology Comment on above: Postprandial RUQ jason n [R10.11] Start: 11-10-2024 End: 11-10-2024 Orders Only Maribell Cheng AUTO FLEET MANAGER.CLINICAL EDUCATION MANAGER Work Phone: General Surgery Comment on above: Postprandial RUQ jason n (Primary Dx) Start: 08-01-2024 End: 08-01-2024 Orders Only Pablito Amato MD Work Phone: [facility] Comment on above: PAF (paroxysmal atri al fibrillation) (HCC) (Primary Dx) Start: 07-20-2024 End: 07-20-2024 Transcribe Orders Shari Mcdonough MA [facility] Comment on above: Paroxysmal atrial fi brillation (HCC) (Primary Dx); Presence of coronary angioplasty implant and graft Start: 07-13-2024 End: 07-13-2024 ambulatory Raghu Saunders NP Facility:[facility] Start: 06-13-2024 End: 06-13-2024 ambulatory Bhupendra Jurado Facility:[facility] Start: 06-04-2024 End: 06-04-2024 Emergency department patient visit Bhupendra Jurado Facility:[facility] Start: 03-31-2024 End: 03-31-2024 ambulatory Bhupendra Jurado Facility:[facility] Start: 03-14-2024 End: 03-15-2024 ambulatory [facility] Facility:[facility] Start: 03-11-2024 ambulatory Simran Pascual y:[facility] Start: 02-25-2024 [facility] Start: 02-25-2024 End: 02-25-2024 ambulatory Raghu Saunders PUBLIC WORKS INSPECTOR Facility:[facility] Start: 11-18-2022 End: 11-18-2022 Historical Summary Bhupendra Jurado MD Work Phone: [facility] Start: 11-17-2022 End: 11-17-2022 ambulatory BRIDGMAN Alda ALEJANDRO [facility] Start: 07-31-2022 ambulatory CLAUDIA SCANLON Facility:[facility] Start: 02-03-2019 End: 02-03-2019 Orders Bhupendra Jurado MD Work Phone: [employer]. Start: 02-03-2019 End: 02-03-2019 Telephone follow-up Bhupendra Jurado MD Work Phone: [employer]. Start: 04-09-2018 End: 04-09-2018 Patient encounter status Bhupendra Jurado MD Work Phone: [employer] Start: 04-09-2018 End: 04-09-2018 Periodic preventive med est patient 40-64yrs Bhupendra Jurado MD Work Phone: [employer]. Start: 07-10-2017 End: 07-10-2017 Medication Bhupendra Jurado MD Work Phone: [employer]. Start: 03-13-2017 End: 03-13-2017 Patient encounter status Bhupendra Jurado MD Work Phone: [employer] Start: 03-13-2017 End: 03-13-2017 Periodic preventive med est patient 40-64yrs Bhupendra Jurado MD Work Phone: [employer]. Start: 03-11-2017 End: 03-11-2017 Orders Bhupendra Jurado MD Work Phone: [employer]. Start: 03-10-2017 End: 03-10-2017 Historical Summary Bhupendra Jurado MD Work Phone: [employer]. Start: 06-19-2016 End: 06-19-2016 Orders Bhupendra Jurado MD Work Phone: [employer]. Start: 04-17-2016 End: 04-17-2016 Orders Bhupendra Jurado MD Work Phone: [employer]. Start: 04-15-2016 End: 04-15-2016 Orders Bhupendra Jurado MD Work Phone: [employer]. Start: 04-14-2016 End: 04-14-2016 Orders Bhupendra Jurado MD Work Phone: [employer]. Start: 04-08-2016 End: 04-08-2016 Patient encounter procedure Bhupendra Jurado MD Work Phone: [employer]. Start: 04-07-2016 End: 04-07-2016 Patient encounter procedure Bhupendra Jurado MD Work Phone: [employer]. Start: 03-28-2016 End: 03-28-2016 Patient encounter status Bhupendra Jurado MD Work Phone: [employer] Start: 03-28-2016 End: 03-28-2016 Periodic preventive med est patient 40-64yrs Bhupendra Jurado MD Work Phone: [employer]. Start: 03-03-2016 End: 03-04-2016 Orders Bhupendra Jurado MD Work Phone: [employer]. Start: 03-03-2016 End: 03-04-2016 Patient encounter status Bhupendra Jurado MD Work Phone: [employer] Start: 01-25-2016 End: 01-25-2016 Patient encounter procedure Bhupendra Jurado MD Work Phone: [employer]. Start: 11-19-2015 End: 11-19-2015 Medication Bhupendra Jurado MD Work Phone: [employer]. Start: 05-22-2015 End: 05-22-2015 Office outpatient visit 15 minutes Bhupendra Jurado MD Work Phone: [employer]. Start: 09-04-2014 End: 09-04-2014 Office outpatient visit 15 minutes Bhupendra Jurado MD Work Phone: [employer]. Start: 06-30-2014 End: 06-30-2014 Medication Bhupendra Jurado MD Work Phone: [employer]. Start: 03-08-2014 End: 03-08-2014 Patient encounter procedure Bhupendra Jurado MD Work Phone: [employer]. Start: 03-08-2014 End: 03-08-2014 Patient encounter status Bhupendra Jurado MD Work Phone: [employer] Start: 11-01-2013 End: 11-01-2013 Medication Bhupendra Jurado MD Work Phone: [employer]. Start: 02-22-2013 End: 02-22-2013 Patient encounter procedure Bhupendra Jurado MD Work Phone: [employer]. Start: 02-22-2013 End: 02-22-2013 Patient encounter status Bhupendra Jurado MD Work Phone: [employer] Start: 02-21-2013 End: 02-21-2013 Historical Summary Bhupendra Jurado MD Work Phone: [employer]. Start: 07-16-2012 End: 07-16-2012 Patient encounter procedure Bhupendra Jurado MD Work Phone: [employer]. Start: 03-02-2012 End: 03-02-2012 Laboratory examination ordered as part of a routine general medical examination Cynthia Krishnan Work Phone: [employer] Start: 03-02-2012 End: 03-02-2012 Orders Bhupendra Jurado MD Work Phone: [employer]. Start: 03-02-2012 End: 03-02-2012 Patient encounter procedure Bhupendra Jurado MD Work Phone: [employer]. Start: 03-02-2012 End: 03-02-2012 Patient encounter status Bhupendra Jurado MD Work Phone: [employer] Start: 04-18-2011 End: 04-18-2011 Patient encounter procedure Bhupendra Jurado MD Work Phone: [employer]. Start: 03-28-2010 End: 03-28-2010 Orders Bhupendra Jurado MD Work Phone: [employer]. Start: 03-28-2010 End: 03-28-2010 Patient encounter status Bhupendra Jurado MD Work Phone: [facility]; [facility]. Start: 03-19-2010 End: 03-19-2010 Patient encounter procedure Bhupendra Jurado MD Work Phone: [facility] Patient encounter status Bhupendra Jurado MD Work Phone: [facility]; [facility] Procedures Date Procedure Procedure Detail Performing Clinician Start: 12-13-2024 End: 12-13-2024 Most Recent Cardio Report Bhupendra Jurado MD Work Phone: Start: 12-10-[address] Bhupendra Jurado MD Work Phone: Start: 12-10-2024 Plain chest X-ray Dr. Parul Jurado MD Work Phone: Start: 11-17-2022 End: 11-17-2022 Screening colonoscopy Bhupendra Jurado MD Work Phone: Comment on above: Dr. Grande. repeat 1 0 years. Start: 03-19-2018 End: 03-19-2018 Comprehensive metabolic 2000 panel - Serum or Plasma Imelda Cutler LPN Start: 03-19-2018 End: 03-19-2018 Lipid panel results documented & reviewed Imelda Cutler LPN Start: 06-15-2016 End: 06-15-2016 sigmoidectomy Kerry Ross LPN Comment on above: [facility] Start: 04-15-2016 End: 04-18-2016 Mri spinal canal thoracic w/contrast matrl Johnna Morrison MD Work Phone: Start: 04-08-2016 End: 04-08-2016 Ct abdomen & pelvis w/contrast material Johnna Morrison MD Work Phone: Start: 03-28-2010 End: 03-28-2010 Td Imelda Cutler LP N Appendectomy Kerry Ross LP N Comment on above: 1986 Screening for malign ant neoplasm of large intestine Imelda Cutler LPN Comment on above: Had colonoscopy [place] be Dr. Grande and found tubular adenoma. Benign finding. Plan of Treatment Date Care Activity Detail Author Start: 08-26-2034 Urine microalbumin profile DTaP,Tdap,Td Vaccine (3 - Td or Tdap) [facility] Start: 02-13-2025 Influenza vaccination [facility] Start: 12-13-2024 End: 12-13-2024 Patient encounter procedure 12/13/2024 11:20 AM EDT Office Visit [facility] [address] [place] [address] Johnna Davis MD [address] [place] [id number] Ref, WHG for PAF, pressence of angioplasty implant and graft- hlk [facility] Comment on above: Ref, WHG for PAF, pr essence of angioplasty implant and graft- hlk Start: 12-10-2024 [facility] Start: 11-11-2024 End: 11-11-2024 Patient encounter procedure 11/11/2024 7:30 AM EDT Appointment Radiology [address] [place], [place] [address] US RT UPPER QUAD Radiology Comment on above: US RT UPPER QUAD Start: 09-22-2024 End: 09-22-2024 Patient encounter procedure 09/22/2024 9:30 AM EDT Office Visit [facility] [address] [place] [address] [facility] [address] [place] [address] Pablito Amato MD [address] [facility] [address] [place] [address] [facility] Start: 02-14-2024 COVID-19 Vaccine ( season) COVID-19 Vaccine ( season) [facility] Start: 02-14-2024 Covid-19 Vaccine ( season) Covid-19 Vaccine ( season) [facility] Start: 02-14-2024 Influenza vaccination Influenza Vacc ine (#1) [facility] Start: 01-15-2018 Administration of he rpes zoster vaccine Zoster Vaccines (1 of 2) [facility] Start: 01-15-2018 Pneumococcal Vaccine : 50+ (1 of 1 - PCV) Pneumococcal Vaccine: 50+ (1 of 1 - PCV) [facility] Start: 01-15-2018 Pneumococcal Vaccine : Age 50+ (1 of 1 - PCV) Pneumococcal Vaccine: Age 50+ (1 of 1 - PCV) [facility] Start: 01-15-2018 Screening for malign ant neoplasm of colon Flexible sigmoidoscopy [facility] Start: 01-15-2018 Shingrix Vaccine (1 of 2) Shingrix Vaccine (1 of 2) [facility] Start: 01-15-2013 Diabetes Screening Diabetes Screenin g [facility] Start: 01-15-2013 Prostate specific antigen measurement Prostate Cancer Screening Discussion [facility] Start: 01-15-2013 Screening for malign ant neoplasm of colon [facility] Start: 01-15-2003 Lipid panel Lipid Screening [facility] Start: 01-15-1987 Hepatitis B Vaccine (1 of 3 - 19+ 3-dose series) Hepatitis B Vaccine (1 of 3 - 19+ 3-dose series) [facility] Start: 01-15-1987 Urine microalbumin profile DTaP,Tdap,Td Vaccine (1 - Tdap) [facility] Start: 01-15-1986 Annual PCP Team Order Administrator anastasiia Disease Visit Annual PCP Team Chronic Disease Visit [facility] Start: 01-15-1986 Anxiety Screening Anxiety Screening [facility] Start: 01-15-1986 Depression Screening Depression Scre ening [facility] Start: 01-15-1986 Hepatitis B surface antibody level LDL Cholesterol [facility] Start: 01-15-1986 Hepatitis C screening Hepatitis C Sc reening [facility] Start: 01-15-1986 HIV screening HIV Screening [facility] Start: 01-15-1983 HIV screening HIV Screening [facility] Start: 1980 Depression screening using PHQ-9 (Patient Health Questionnaire 9) score Depression Screening/Follow-Up (PHQ-2/9) [facility] Start: 01-15-1971 History and physical examination, annual for health maintenance Wellness Visit [facility] Start: 1968 Prostate specific antigen measurement PSA Level [facility] Start: 1968 Screening for malign ant neoplasm of colon [facility] Start: 1968 Tetanus vaccination Tetanus: Every 1 0yrs [facility] End: 08-01-2025 12 lead ECG ECG 12 Lead ECG Routine PAF (paroxysmal atrial fibrillation) (HCC) 4 Occurrences starting 08/01/2024 until 08/01/2025 [facility] Work Phone: Comment on above: 4 Occurrences starti ng 08/01/2024 until 08/01/2025 Ephys evl trnsptl tx atrial fib isolat pulm vein COMPRE EP EVAL ABLTJ ATR FIB PULM VEIN ISOLATION Persistent atrial fibrillation (HCC) [facility] EP LAB Patient Education AFib Dc Cardio version Dc [facility] Work Phone: End: 12-10-2025 US Abdomen RUQ US ABD RIGHT UPPER QUADRANT Radiology Routine Postprandial RUQ pain 1 Occurrences starting 11/10/2024 until 12/10/2025 [facility] Work Phone: Comment on above: 1 Occurrences starti ng 11/10/2024 until 12/10/2025 US Abdomen RUQ US ABD RIGHT UPP ER QUADRANT Radiology Routine Postprandial RUQ pain 11/11/2024 8:01 AM EDT [facility] End: 11-11-2024 Us abdominal real time w/image limited [facility] Work Phone: Comment on above: ONCE for 1 Occurrenc es starting 11/11/2024 until 11/11/2024 Immunizations Immunization Date Immunization Notes Care Provider Shasta cortze 08-26-2024 tetanus toxoid, reduced diphtheria toxoid, and acellular pertussis vaccine, adsorbed Johnna Davis MD Work Phone: [facility] 05-06-2024 influenza, seasonal, injectable, preservative free Johnna Davis MD Work Phone: [facility] 05-06-2024 influenza virus vaccine, unspecified formulation Johnna Davis MD Work Phone: [facility] 03-03-2023 influenza, injectabl e, quadrivalent, preservative free Johnna Davis MD Work Phone: [facility] 03-20-2022 influenza, injectabl e, quadrivalent, preservative free Johnna Davis MD Work Phone: [facility] 05-30-2021 COVID-19 original vaccine, full dose, monovalent (MODERNA) Johnna Davis MD Work Phone: [facility] 07-19-2020 COVID-19 original vaccine, full dose, monovalent (MODERNA) Johnna Davis MD Work Phone: [facility] 06-20-2020 COVID-19 original vaccine, full dose, monovalent (MODERNA) Johnna Davis MD Work Phone: [facility] 04-11-2020 influenza, injectabl e, quadrivalent, preservative free Johnna Davis MD Work Phone: [facility] 03-10-2019 influenza, injectabl e, quadrivalent, preservative free Johnna Davis MD Work Phone: [facility] 03-19-2018 influenza, injectabl e, quadrivalent, contains preservative Bhupendra Jurado MD Work Phone: [facility] 12-21-2017 tetanus toxoid, reduced diphtheria toxoid, and acellular pertussis vaccine, adsorbed Bhupendra Jurado MD Work Phone: [facility] Comment on above: given at [facility] per pt 03-19-2015 influenza, injectabl e, quadrivalent, preservative free Dr. Bhupendra Jurado MD Work Phone: [facility] 03-02-2014 influenza, injectabl e, quadrivalent, preservative free Dr. Bhupendra Jurado MD Work Phone: [facility] 03-28-2010 TD(adult) unspecifie d formulation Johnna Davis MD Work Phone: [facility] 03-28-2010 tetanus toxoid, adsorbed Bhupendra Jurado MD Work Phone: [facility]; [facility] Comment on above: Site: Deltoid (Right ) Payers Date Payer Category Payer Private Health Insurance [id number] 2024 Private Health Insurance EHP AET NA [id number] 2024 Unknown [id number] 2024 Unknown [id number] 2024 Self-pay 2024 Unknown [id number] 1968 Unknown [id number] Unknown [id number] Unknown [employer] Unknown [id number] Unknown [id number] Unknown [id number] Unknown [id number] Unknown [id number] 462 Unknown [id number] 462 Unknown [id number] 462 Unknown [id number] Unknown [id number] 462 Unknown [id number] 462 Unknown [id number] 462 Unknown [id number] 462 Social History Date Type Detail Facility Alcohol Use: Alcohol Use: ; Occasional alcohol use. [facility] [employer] [facility] Start: 12-13-2024 Caffeine Use Caffeine Use [facility] [employer] [facility] Exercise History: Exercise Histo ry: ; Moderate. [facility] [employer] [facility] Tobacco Use: Tobacco Use: ; F ormer smoker. [facility]; [employer] [facility] Start: 1970 Male [facility] Moderate [facility] [employer] Work Phone: Occasional alcohol use [facility]; [employer] [facility] Work Phone: Ex-smoker [place] [employer] [facility]; [employer] Work Phone: Tobacco smoking stat us [facility] Tobacco smoking consumption unknown [facility] Start: 1970 Sex assigned at Not on file [facility] Start: 12-13-2024 Gender identity Not on file [facility] Start: 10-05-2024 Gender identity Identifies as male gender (finding) [facility] Work Phone: Start: 10-05-2024 Sexual orientation Heterosexual (finding) [facility] Start: 12-10-2024 End: 12-13-2024 Tobacco smoking status MSIS Never smoked tobacco (finding) [facility] Start: 12-13-2024 Tobacco use and exposure Former smokeless tobacco user [facility] History of tobacco use Snuff User [facility] History of tobacco use Chews Tobacco [facility] Start: 12-13-2024 Alcoholic beverage intake Current drinker of alcohol (finding) [facility] National Score (1-10 0), lower number is lower risk 84 [facility] Start: 12-13-2024 Alcohol Comment occ [facility] Medical Equipment Procedure Code Equipment Code Equipment Origin al Text Equipment Identifier Dates Drug-eluting coronary artery stent, [id number] [id number]-coated [id number] FDA Start: 03-14-2024 Goals Date Patient Goal Desired Activity /State Personal health goal Mental Status Date Assessment Result Facility 12-10-2024 Cognitive function Drowsy [facility] Work Phone: 12-10-2024 Cognitive function Arousable To Voice/Nam e [facility] Work Phone: Clinical Notes 11-18-2022 to 12-13-2024 Patient InstructionsJohnna Davis MD - 12/13/2024 11:20 AM EDTCMaura lopez RDMS - 11/11/2024 7:30 AM EDT Note Date & Type Note Facility 12-13-2024 Instructions Johnna Davis MD - 12/13/2024 12:19 PM EDT We discussed your atrial fibrillation (AFib) and treatment options: - You have a history of persistent atrial fibrillation, with multiple episodes requiring cardioversion, most recently on December 10, 2024. Flecainide was previously effective but was discontinued due to your coronary artery disease and stenting of the LAD in February 2024. - We reviewed your current medications: aspirin 81 mg daily, atorvastatin 80 mg daily, Plavix 75 mg daily, metoprolol succinate 50 mg twice daily, and metoprolol tartrate 50 mg as needed. Continue these as prescribed. - We discussed antiarrhythmic drug options. I recommend trying Multaq (dronedarone) as a short-term outpatient option to manage your AFib until your ablation procedure. This medication is generally well-tolerated but may cause gastrointestinal side effects such as nausea or diarrhea. I will review your records to confirm you are a good candidate for this medication and send the prescription to your home delivery pharmacy. Please monitor for any side effects and let us know if you experience any issues. - Ablation is a highly effective long-term option for managing your AFib. We discussed the newer pulse field ablation (PFA) technology, which is safer and as effective as traditional methods. This procedure has a high success rate, especially in younger, active patients like you. The procedure will require a short hospital stay, and you will need to avoid heavy lifting and vigorous activity for one week afterward. I will submit a request to schedule your ablation and prioritize your case due to your history of ER visits and cardioversions. You will be contacted approximately 30 days before the procedure date with further details. We discussed stroke prevention: - Your CHADS-VASc score is 1 due to your coronary artery disease. Aspirin remains an appropriate choice for stroke prevention at this time. You are currently on Plavix, which you plan to discontinue in February 2025, one year after your stent placement. We will reassess your anticoagulation needs as you approach age 63. We discussed follow-up care: - I will coordinate with the [facility] Cardiology team in [place] to establish your long-term care for coronary artery disease and AFib management. In the meantime, continue follow-up with [facility] as needed. Next steps: - Begin Multaq (dronedarone) once the prescription is confirmed and delivered. Continue your current medications as prescribed. - Await a call from our office regarding the scheduling of your ablation procedure. - Avoid heavy lifting or vigorous activity for one week after the ablation procedure and follow all post-procedure care instructions. - Visit the [facility] website for additional information about AFib ablation and pulse field ablation technology. Please contact our office if you have any questions, experience side effects from Multaq, or have any new or worsening symptoms. documented in this encounter [facility] 12-13-2024 History of Present illness Narrative PRIMARY CARE PHYSICIAN: Bhupendra Jurado ([facility]) [address] [place] [address] REFERRING PHYSICIAN: Raghu Saunders [address] [address] Patient Care Team: Bhupendra Jurado MD as PCP - General (Family Medicine) Raghu Saunders APRN.ALLAN as Nurse Practitioner (Cardiology) José Miguel Martinez MD as Specialty De Alcoholizer (Cardiology) Recording using [employer] software for draft documentation of the visit was discussed with the patient/authorized credit resolution representative; all questions welcomed and answered. 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 Patient Overview: Mr. Rivera is referred to Dr. Davis for evaluation of atrial fibrillation by [facility]. He has a history of persistent atrial fibrillation, including a hospitalization in May 2024. He had persistent atrial fibrillation in March 2024 and underwent electrical cardioversion in the ER. Flecainide was initiated in May 2021 but later discontinued due to contraindication with coronary artery disease. Diagnostic Results: - Stress Echocardiogram (2018): No evidence of myocardial ischemia. - Stress Echocardiogram (February 2024): Abnormal with evidence of mid-anterior ischemia. - Cardiac Catheterization (February 16, 2024): Severe disease of the LAD and moderate disease of the RCA. - Stenting of LAD and angioplasty of the diagonal vessel. Items for Follow-Up Today: - Consideration of treatment options, including other antiarrhythmic drugs versus catheter ablation. The patient is a 54-year-old male with a history of persistent atrial fibrillation and CAD, presenting for evaluation and management of atrial fibrillation. The patient reports that his initial episode of atrial fibrillation occurred in January 2019, accompanied by palpitations and exertional dyspnea. He was treated with Cardizem and spontaneously converted to normal sinus rhythm without hospitalization. Approximately eight months later, he experienced another episode requiring electrical cardioversion and was started on flecainide in May 2021, which effectively prevented further episodes. In February 2024, a stress echocardiogram revealed mid-anterior ischemia, leading to a cardiac catheterization that demonstrated severe LAD disease and moderate RCA disease. He underwent LAD stenting and angioplasty of the diagonal vessel. Flecainide was discontinued due to its contraindication in CAD. In May 2024, he experienced persistent atrial fibrillation with RVR and underwent electrical cardioversion after Cardizem failed to convert him. He has had a total of three cardioversions to date. Most recently, on December 10, 2024, he presented to the ED with atrial fibrillation with RVR and a heart rate of 148 bpm, requiring electrical cardioversion. He reports no identifiable triggers for his atrial fibrillation episodes and has reduced his alcohol consumption, suspecting it might be a contributing factor. He is physically active, running three miles before his most recent episode. He expresses frustration with his recurrent atrial fibrillation and is interested in exploring treatment options that would allow him to maintain his active lifestyle. His past medical history is significant for a sigmoidectomy in 2017 due to diverticulitis and an appendectomy in 1983. He denies any history of hypertension, diabetes, or previous strokes. He is a non-smoker and does not use tobacco products. Family history is notable for his mother, aged 76, who has hypercholesterolemia and dementia. His father at 59 from lung cancer, despite being a non-smoker, and had a history of hypertension. He has two sisters and one brother; one sister had thyroid cancer, while the others have no known medical issues. His maternal grandmother is 97 years old and has poor circulation to her stomach. He is currently taking aspirin 81 mg daily, atorvastatin 80 mg daily, Plavix 75 mg daily, metoprolol succinate 50 mg BID, and metoprolol tartrate 50 mg as needed. I have confirmed and edited as necessary, the PFSH and ROS obtained by others. PAST MEDICAL HISTORY Diagnosis Date At risk for stroke 12/12/2024 Coronary artery disease involving minto coronary artery of minto heart without angina pectoris 12/12/2024 History of percutaneous coronary intervention 12/12/2024 Persistent atrial fibrillation (HCC) 12/12/2024 PAST SURGICAL HISTORY Procedure Laterality Date APPENDECTOMY 1983 CARDIOVERSION, ELECTIVE, ELECTRICAL 12/10/2024 CARDIOVERSION, ELECTIVE, ELECTRICAL 2020 CARDIOVERSION, ELECTIVE, ELECTRICAL 06/04/2024 COLON SURGERY HX 2016 sigmoidectomy INSERT INTRACORONARY STENT 03/14/2024 [facility]; PCI/GOPI to LAD, PCI (without stent) to diagonal branch of LAD SOCIAL HISTORY Social History Tobacco Use Smoking status: Never Smokeless tobacco: Former Types: Snuff, Chew Substance Use Topics Alcohol use: Yes Comment: occ Drug use: Never FAMILY HISTORY Problem Relation Age of Onset Dementia Mother Hyperlipidemia Mother Lung Cancer Father not a smoker, possibly occupational exposure Hypertension Father Thyroid Cancer Sister No Known Problems Sister No Known Problems Brother ALLERGIES: ALLERGIES No Known Allergies MEDICATIONS: aspirin 81 mg cap Take 81 mg by mouth once daily. metoprolol tartrate, short acting, (LOPRESSOR) 50 mg tablet Take 50 mg by mouth as needed. atorvastatin (LIPITOR) 80 mg tablet Take 1 tablet by mouth daily at bedtime. clopidogrel (PLAVIX) 75 mg tablet Take 1 tablet by mouth once daily. metoprolol succinate ER (TOPROL XL) 50 mg 24 hr tablet Take 1 tablet by mouth two times a day for blood pressure. REVIEW OF SYSTEMS: Review of Systems Constitutional: Positive for malaise/fatigue. Negative for chills and fever. Respiratory: Negative for cough, hemoptysis, sputum production and shortness of breath. Cardiovascular: Positive for palpitations. Negative for chest pain, orthopnea, claudication, leg swelling and PND. Gastrointestinal: Negative for abdominal pain, blood in stool, melena, nausea and vomiting. Genitourinary: Negative for dysuria, flank pain and hematuria. Musculoskeletal: Negative for falls. Skin: Negative for rash. Neurological: Negative for focal weakness, seizures and loss of consciousness. PHYSICAL EXAMINATION: BP 110/73 Pulse 71 Wt 254 lb 3.2 oz (115.3kg) SpO2 95% Physical Exam Vitals reviewed. Constitutional: General: He is not in acute distress. HENT: Head: Normocephalic and atraumatic. Cardiovascular: Rate and Rhythm: Normal rate and regular rhythm. Heart sounds: Normal heart sounds, S1 normal and S2 normal. No murmur heard. No friction rub. Pulmonary: Effort: Pulmonary effort is normal. No respiratory distress. Breath sounds: Normal breath sounds. No wheezing, rhonchi or rales. Abdominal: Palpations: Abdomen is soft. Tenderness: There is no abdominal tenderness. Comments: Small area of ecchymosis RUQ Musculoskeletal: Cervical back: Neck supple. Right lower leg: No edema. Left lower leg: No edema. Skin: General: Skin is warm and dry. Neurological: General: No focal deficit present. Mental Status: He is alert and oriented to person, place, and time. Psychiatric: Mood and Affect: Mood normal. Behavior: Behavior normal. Thought Content: Thought content normal. CARDIOVASCULAR MEDICINE TESTING: Electrocardiogram: The patient brought EKGs from [facility] dated December 10, 2024. The first EKG shows atrial fibrillation with rapid ventricular response, average 148 bpm; nonspecific ST and T wave abnormality. The second EKG approximately 2 hours later reveals sinus rhythm 78 bpm; normal conduction intervals (NC 164 ms, QRS 80 ms); QTc 421 ms I have personally reviewed the Electrocardiogram. 1. Persistent atrial fibrillation (HCC) - ICD9: 427.31, ICD10: I48.19 (primary diagnosis) 2. At risk for stroke - ICD9: V15.89, ICD10: Z91.89 3. Coronary artery disease involving minto coronary artery of minto heart without angina pectoris - ICD9: 414.01, ICD10: I25.10 4. History of percutaneous coronary intervention - ICD9: V15.1, ICD10: Z98.61 CHADS2-Vasc Score Breakdown 1 Total Score 1 History of vascular disease IMPRESSION: 1. Persistent atrial fibrillation (HCC) (I48.19) Recurrent episodes since January 2019, initially managed with metoprolol and flecainide. Multiple cardioversions performed, most recently on 12/10/2024. Flecainide discontinued due to coronary artery disease. Currently on metoprolol succinate 50 mg BID and metoprolol tartrate 50 mg PRN. - After discussion, he would like to avoid the hospitalization required for initiation of a Class III antiarrhythmic drug (sotalol, dofetilide) and instead initiate Multaq (dronedarone) that can be safely initiated as an outpatient; prescription to be sent to home delivery pharmacy. - Schedule for atrial fibrillation catheter ablation with pulse field ablation (PFA); procedure request submitted with expedited scheduling (we are currently scheduling out several months toward end of the year). - Continue current medications including metoprolol. - Follow-up with [facility] for ongoing management. 2. At risk for stroke (Z91.89) CHADS-VASc score of 1 due to coronary artery disease. Currently on aspirin 81 mg daily and Plavix 75 mg daily. - Continue aspirin 81 mg daily. - Continue Plavix 75 mg daily until treatment course completed. - Initiate anticoagulation therapy one week prior to ablation procedure and continue for two weeks post-procedure. Hold aspirin when OAC initiated, but continue with Plavix unless the treatment course post coronary stenting is completed. 3. Coronary artery disease involving minto coronary artery of minto heart without angina pectoris (I25.10) History of percutaneous coronary intervention (Z98.61) Severe disease of the LAD and moderate disease of the RCA identified on cardiac catheterization on 02/16/2024. LAD stented and diagonal vessel angioplasty performed. Currently on atorvastatin 80 mg daily. - Continue atorvastatin 80 mg daily, management per cardiology. PLAN AND RECOMMENDATIONS: 1) Consider dronedarone (Multaq) as short term treatment strategy. He prefers this antiarrhythmic drug due to ability to initiate as outpatient. RX sent to his preferred pharmacy. Other options sotalol or dofetilide would require hospitalization for 3 or 4 days under telemetry monitoring for drug initiation. 2) Schedule atrial fibrillation catheter ablation. For the procedure he would need to start treatment with direct oral anticoagulant (DOAC) such as Eliquis, Xarelto, or Pradaxa about one week prior to the procedure and take for about a couple weeks post procedure. Hold aspirin when OAC initiated. Eliquis might be good choice as probably has 30-day free trial and this might be sufficient amount for the period of time that we need him on OAC. We are presently scheduling several months out until the end of the year for the ablation procedure. 3) Weight loss through exercise and prudent diet would be beneficial from multiple standpoints including reducing likelihood of recurrent atrial fibrillation. I had a detailed discussion with Mr. Rivera regarding my evaluation and recommendations. After our discussion, Mr. Rivera expressed his understanding and I answered all his questions to his apparent satisfaction. INFORMED CONSENT The risks, benefits and anticipated outcomes of the procedure, the risks and benefits of the alternatives to the procedure and the roles and tasks of the personnel to be involved were discussed with the patient. Consent for the procedure and agreement to proceed has been obtained. I verify that I personally obtained the consent. Return for office will call to schedule procedure. Johnna Davis MD 12/13/2024 Medical Decision Making: Problems: Moderate: New problem with uncertain prognosis Data: Unique source(s) for external note(s) reviewed: 3+ Unique test result(s) reviewed: 3+ Unique test(s) ordered: 1 Risk: Moderate: Moderate risk from testing/treatment, Drug management and Decision on minor surgery w/ risk factors Medical Decision Making Level: 4 - Moderate documented in this encounter [facility] 12-13-2024 Note HNO ID: [id number] Author: JOHNNA DAVIS MD Service: ? Author Type: Physician Type: Progress Notes Filed: 12/13/2024 19:09 Note Text: PRIMARY CARE PHYSICIAN: Bhupendra Jurado ([place]) [address] [place] [address] REFERRING PHYSICIAN: Raghu Saunders [address] [address] Patient Care Team: Bhupendra Jurado MD as PCP - General (Family Medicine) Raghu Saunders APRN.CNP as Nurse Practitioner (Cardiology) José Miguel Martinez MD as Specialty De Alcoholizer (Cardiology) Recording using [employer] software for draft documentation of the visit was discussed with the patient/authorized credit resolution representative; all questions welcomed and answered. 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 Patient Overview: Mr. Rivera is referred to Dr. Davis for evaluation of atrial fibrillation by [facility]. He has a history of persistent atrial fibrillation, including a hospitalization in May 2024. He had persistent atrial fibrillation in March 2024 and underwent electrical cardioversion in the ER. Flecainide was initiated in May 2021 but later discontinued due to contraindication with coronary artery disease. Diagnostic Results: - Stress Echocardiogram (2018): No evidence of myocardial ischemia. - Stress Echocardiogram (February 2024): Abnormal with evidence of mid-anterior ischemia. - Cardiac Catheterization (February 16, 2024): Severe disease of the LAD and moderate disease of the RCA. - Stenting of LAD and angioplasty of the diagonal vessel. Items for Follow-Up Today: - Consideration of treatment options, including other antiarrhythmic drugs versus catheter ablation. The patient is a 54-year-old male with a history of persistent atrial fibrillation and CAD, presenting for evaluation and management of atrial fibrillation. The patient reports that his initial episode of atrial fibrillation occurred in January 2019, accompanied by palpitations and exertional dyspnea. He was treated with Cardizem and spontaneously converted to normal sinus rhythm without hospitalization. Approximately eight months later, he experienced another episode requiring electrical cardioversion and was started on flecainide in May 2021, which effectively prevented further episodes. In February 2024, a stress echocardiogram revealed mid-anterior ischemia, leading to a cardiac catheterization that demonstrated severe LAD disease and moderate RCA disease. He underwent LAD stenting and angioplasty of the diagonal vessel. Flecainide was discontinued due to its contraindication in CAD. In May 2024, he experienced persistent atrial fibrillation with RVR and underwent electrical cardioversion after Cardizem failed to convert him. He has had a total of three cardioversions to date. Most recently, on December 10, 2024, he presented to the ED with atrial fibrillation with RVR and a heart rate of 148 bpm, requiring electrical cardioversion. He reports no identifiable triggers for his atrial fibrillation episodes and has reduced his alcohol consumption, suspecting it might be a contributing factor. He is physically active, running three miles before his most recent episode. He expresses frustration with his recurrent atrial fibrillation and is interested in exploring treatment options that would allow him to maintain his active lifestyle. His past medical history is significant for a sigmoidectomy in 2016 due to diverticulitis and an appendectomy in 1983. He denies any history of hypertension, diabetes, or previous strokes. He is a non-smoker and does not use tobacco products. Family history is notable for his mother, aged 76, who has hypercholesterolemia and dementia. His father at 59 from lung cancer, despite being a non-smoker, and had a history of hypertension. He has two sisters and one brother; one sister had thyroid cancer, while the others have no known medical issues. His maternal grandmother is 97 years old and has poor circulation to her stomach. He is currently taking aspirin 81 mg daily, atorvastatin 80 mg daily, Plavix 75 mg daily, metoprolol succinate 50 mg BID, and metoprolol tartrate 50 mg as needed. I have confirmed and edited as necessary, the PFSH and ROS obtained by others. PAST MEDICAL HISTORY Diagnosis Date At risk for stroke 12/12/2024 Coronary artery disease involving minto coronary artery of minto heart without angina pectoris 12/12/2024 History of percutaneous coronary intervention 12/12/2024 Persistent atrial fibrillation (HCC) 12/12/2024 PAST SURGICAL HISTORY Procedure Laterality Date APPENDECTOMY 1984 CARDIOVERSION, ELECTIVE, ELECTRICAL 12/10/2024 CARDIOVERSION, ELEC (more content not included)... [facility] 12-10-2024 Radiology Diagnostic study note [facility] Imaging Services [address] [place] [address] Chest 1 View (Portable) MR#: [id number] Acct: [id number] Name: KATERIN RIVERA TAM Arriaga Rep #: [id number] : 1970 M 54 From: Juana Almanzar MD PCP: Dr. Bhupendra Jurado MD Status: REG ER Study:Chest 1 View (Portable) Date of Exam: 12/10/24 Exam# [id number] Ordering Dr: Alda Muñiz DO PROCEDURE: CHEST 1 VIEW (PORTABLE) 12/10/2024 REASON FOR EXAM: CHEST PAIN TECHNIQUE: Frontal view of the chest. COMPARISON: 06/04/2024 FINDINGS: Normal heart size. Prominent fat pads bilateral old clavicle fractures. Well inflated lungs. No consolidation, effusion, or pneumothorax. RAD/Chest 1 View (Portable) IMPRESSION: No acute findings. Reading Location: [place] [address] CC: Dr. Bhupendra Jurado MD; Dr. Paolo Muñiz DO ~ [employer] Teacher: Signed [facility] 11-11-2024 History of Present illness Narrative Radiology Service Progress Note PATIENT NAME: Katerin Rivera DATE OF SERVICE: November 11, 2024 TIME: 8:35 AM PATIENT IDENTITY VERIFICATION COMPLETED USING TWO (2) IDENTIFIERS: Name and Date of confirmed by patient verbally. FALL SCREENING: Has the patient had 2 falls in the last year or 1 fall with injury or currently using an Ambulatory Assistive Device (Walker, Cane, Wheelchair, Crutches, etc.)? No PATIENT GENDER DATA: Assigned male at PATIENT RELEVANT IMPLANT DATA REVIEWED: Not Applicable PATIENT PRESENTS WITH AN IMPLANTABLE OR ATTACHED BORING AND FILLING MACHINE OPERATOR: No RADIOLOGY DEPARTMENT: Ultrasound PERIPHERAL IV DATA: Not applicable SIGNED BY: Maura Vivar RDMS November 11, 2024 8:35 AM documented in this encounter [facility] 11-11-2024 Note HNO ID: [id number] Author: MAURA VIVAR RDMS Service: ? Author Type: Studio Musician Type: Progress Notes Filed: 11/11/2024 08:35 Note Text: Radiology Service Progress Note PATIENT NAME: Katerin Rivera DATE OF SERVICE: November 11, 2024 TIME: 8:35 AM PATIENT IDENTITY VERIFICATION COMPLETED USING TWO (2) IDENTIFIERS: Name and Date of confirmed by patient verbally. FALL SCREENING: Has the patient had 2 falls in the last year or 1 fall with injury or currently using an Ambulatory Assistive Device (Walker, Cane, Wheelchair, Crutches, etc.)? No PATIENT GENDER DATA: Assigned male at PATIENT RELEVANT IMPLANT DATA REVIEWED: Not Applicable PATIENT PRESENTS WITH AN IMPLANTABLE OR ATTACHED BORING AND FILLING MACHINE OPERATOR: No RADIOLOGY DEPARTMENT: Ultrasound PERIPHERAL IV DATA: Not applicable SIGNED BY: Maura Vivar RDMS November 11, 2024 8:35 AM [facility] 03-14-2024 Note [facility] Medical Records Department [address] [place] [address] History Physical Exam 03/14/24 0836 MR#: [id number] Acct: [id number] Name: KATERIN RIVERA Jr. Rep #: [id number] : 1970 54 From: José Miguel Martinez MD PCP: Dr. Bhupendra Jurado MD Status:ADM RITIKA Location: [place] [address] History and Physical Date of Admission: 03/14/24 Pleasant 53-year-old gentleman who presents to the [employer] today for a heart catheterization. He is a gentleman who had presented with atrial fibrillation with rapid ventricular response rate and spontaneously converted to sinus rhythm. He did unfortunately presents to the hospital again in May of this year and was placed on flecainide. He has done well since then. He is concerned about these episodes occurring more frequently. He has had no neck arm or jaw discomfort suggest angina. He remember he had a stress echocardiogram in 2018 with no evidence of ischemia. During his visit in March you remember he underwent a DC cardioversion in the emergency room. He had been put on flecainide in May 2021 and he has not had any atrial fibrillation episodes since. He acknowledges random, chest tightness. This is located on left and right side of his chest. This last for minutes. This has been infrequent over the past year. He denies arm, jaw, or neck discomfort. He states rare palpitations. He states his Kardia device has not shown A-fib. He denies bilateral lower extremity edema, but states left lower extremity edema. He denies claudication. He denies shortness of breath with activity, shortness of breath at rest, orthopnea, or PND. He acknowledges cough. He states intermittent snoring. He denies significant, sudden weight gain. He denies lightheadedness, dizziness, near-syncope, or syncope. He denies blood in urine, blood in stool, or epistaxis. He denies fever or chills. He denies myalgia. He denies fatigue. His exercise level has remained stable hoping to return to exercising 5 days a week. 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 Grandfather Cancer Social History Smoking Status: Never smoker Smokeless tobacco user: other alcohol intake: current caffeine: Yes Type: coffee Number of servings: 2 ROS Const Const: Negative for fatigue, weakness, headache(s), frequent falls, difficulty sleeping or excessive sweating Eyes Eyes: Negative for loss of peripheral vision, transient loss of vision, blurry vision, double vision or tunnel vision ENT ENT: Negative for headache(s), dizziness, Nosebleed/epistaxis or balance problems Cardio Chest Pain: Yes Frequency: other (a couple of episodes in the last year) Character: tightness Onset: other (Randomly) Location: left chest and right chest Duration: minutes Palpitations: Yes Edema: Left (Relates to varicose vein) Muscle aches with walking: None Resp Respiratory: Positive for Cough (Raspy cough since covid in April); Negative for SOB with activity, SOB at rest, SOB orthopnea SOB lying down or paroxysmal nocturnal dyspnea GI GI: Negative nausea, vomiting, heartburn or black,tarry stools : Negative for hematuria Musc Musc: Negative for muscle aches/ myalgia, muscle weakness, joint pain or balance problems Skin Skin: Negative non-healing lesions, rash or unusual bruising Neuro Neuro: Negative for dizziness, lightheadedness, near syncope, syncope, frequent falls, headache(s), weakness, blurry vision, double vision or lack of coordination [place] Hematologic/Lymphatic: Negative for easy bleeding or easy bruising Endo Endo: Negative for fatigue, excessive sweating or increased thirst/drinking Psych Psych: Negative for anxiety or depression Allergy Allergy/Immunology: Negative for hives and Negative for rash Cardiology Exam Const Appearance: cooperative, healthy appearing, comfortable and no acute distress Nutritional Appearance: well nourished and obese Orientation: alert, awake and oriented x3 Head Head: normal to inspection Ears: hearing grossly normal bilaterally Nose: external nose normal Face and Sinus: face symmetric Mouth: moist mucous membra (more content not included)... [facility] 11-18-2022 Note [facility] HISTORY & PHYSICAL NAME ACCOUNT SEX AGE ADMIT DISCHARGE PT MED. RECORD# NUMBER DATE DATE TYPE CRISTOFER [id number] Igor 52 11/17/22 2 KATERIN Marshall [id number] ROOM: [facility] DATE OF : 66 DICTATING PHYSICIAN: Kourtney Grande CHIEF COMPLAINT: Colon cancer screening. HISTORY OF PRESENT ILLNESS: Mr. Rivera is a 52-year-old male who presents for colon cancer screening. He denies any worrisome signs or symptoms at this time. He reports having a colonoscopy in 2016 in which 2 polyps were removed. PAST MEDICAL HISTORY: Atrial fibrillation. PAST SURGICAL HISTORY: Sigmoidectomy secondary to recurrent sigmoid diverticulitis. MEDICATIONS: See AUG. ALLERGIES: No known drug allergies. SOCIAL HISTORY: Negative x3. REVIEW OF SYSTEMS: Ten system review of systems are negative. PHYSICAL EXAMINATION GENERAL APPEARANCE: In general, he is alert, oriented, and appropriate with no acute distress. VITAL SIGNS: On exam, he is afebrile. Vital signs stable, within normal limits. LUNGS: Lungs are clear to auscultation bilaterally. HEART: Regular rate and rhythm. ABDOMEN: Soft, nontender, and nondistended. EXTREMITIES: Extremities show no cyanosis, edema, or gross deformities. NEUROLOGIC: GCS of 15. Cranial nerves II-XII are grossly intact, 5/5 muscle strength all groups, and sensation grossly intact. IMPRESSION: This is a 52-year-old male requiring colon cancer screening. Page 1 of 2 KATERIN RIVERA JR History & Physical KATERIN RIVERA JR :1970 PLAN: I discussed the risks, benefits, and alternatives of colonoscopy. All questions were answered, and he voiced understanding and agreement with the plan and procedure. Dictated By: Kourtney Grande MD 11/17/22 08:21 JOB #: [id number] Transcribed By: yvonne 11/17/22 10:15 Electronically signed by: E-SIGN DR. GRANDE 11/18/22 08:47 Update to H&P: [ ] No changes: I have examined the patient and reviewed the H&P and there are no changes. [ ] As previously dictated with the following changes: PHYSICIAN SIGNATURE: TIME: DATE: Page 2 of 2 KATERIN RIVERA JR History & Physical [facility] Evaluation note Diagnosis Paroxysmal atrial fibrillation (HCC)- Primary Atrial fibrillation Presence of coronary angioplasty implant and graft documented in this encounter [facility] note* Diagnosis PAF (paroxysmal atrial fibrillation) (HCC)- Primary Atrial fibrillation documented in this encounter [facility] note* Diagnosis Postprandial RUQ pain- Primary Abdominal pain, right upper quadrant documented in this encounter [facility] note* Diagnosis Postprandial RUQ pain Abdominal pain, right upper quadrant documented in this encounter [facility] noteNo assessment information availableWHenry County Hospital Work Phone: Evaluation note* Diagnosis Persistent atrial fibrillation (HCC)- Primary Atrial fibrillation At risk for stroke Other specified personal history presenting hazards to health 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 Your labs were reassuring. There is no obvious precipitating cause identified for A-fib including damage to your heart severe electrolyte maladies or anemia Please take Tylenol (2 pills, 650 mg), ibuprofen (2 pills, 400 mg) every 6 hours as needed for pain and fever control. Please return to the emergency department if your symptoms change or worsen. Please follow with Cardiology/Electrophysiology for further outpatient evaluation and management.[facility] Work Phone: Reason for referral (narrative)No reason for referral information availableWHenry County Hospital Work Phone: Summary Purpose Family History No Family History Records Found Cerebrovascular Accident Status:Active Comment s:Negative Family History Of. Coronary Artery Disease Status:Active Comments :Negative Family History Of. Diabetes Mellitus Type II Status:Active Commen ts:Negative Family History Of. Hypertension Status:Active Comments:Father. Maternal Grandfather. Lung Cancer Status:Active Comments:Father. Paternal Grandfather. Prostate Cancer Status:Active Comments:Materna l Grandfather. Cerebrovascular Accident Status:Active Comment s:Negative Family History Of. Coronary Artery Disease Status:Active Comments :Negative Family History Of. Diabetes Mellitus Type II Status:Active Commen ts:Negative Family History Of. Hypertension Status:Active Comments:Father. Maternal Grandfather. Lung Cancer Status:Active Comments:Father. Paternal Grandfather. Prostate Cancer Status:Active Comments:Materna l Grandfather. Cerebrovascular Accident Status:Active Comment s:Negative Family History Of. Coronary Artery Disease Status:Active Comments :Negative Family History Of. Diabetes Mellitus Type II Status:Active Commen ts:Negative Family History Of. Hypertension Status:Active Comments:Father. Maternal Grandfather. Lung Cancer Status:Active Comments:Father. Paternal Grandfather. Prostate Cancer Status:Active Comments:Materna l Grandfather. Cerebrovascular Accident Status:Active Comment s:Negative Family History Of. Coronary Artery Disease Status:Active Comments :Negative Family History Of. Diabetes Mellitus Type II Status:Active Commen ts:Negative Family History Of. Hypertension Status:Active Comments:Father. Maternal Grandfather. Lung Cancer Status:Active Comments:Father. Paternal Grandfather. Prostate Cancer Status:Active Comments:Materna l Grandfather. Cerebrovascular Accident Status:Active Comment s:Negative Family History Of. Coronary Artery Disease Status:Active Comments :Negative Family History Of. Diabetes Mellitus Type II Status:Active Commen ts:Negative Family History Of. Hypertension Status:Active Comments:Father. Maternal Grandfather. Lung Cancer Status:Active Comments:Father. Paternal Grandfather. Prostate Cancer Status:Active Comments:Materna l Grandfather. Cerebrovascular Accident Status:Active Comment s:Negative Family History Of. Coronary Artery Disease Status:Active Comments :Negative Family History Of. Diabetes Mellitus Type II Status:Active Commen ts:Negative Family History Of. Hypertension Status:Active Comments:Father. Maternal Grandfather. Lung Cancer Status:Active Comments:Father. Paternal Grandfather. Prostate Cancer Status:Active Comments:Materna l Grandfather. Cerebrovascular Accident Status:Active Comment s:Negative Family History Of. Coronary Artery Disease Status:Active Comments :Negative Family History Of. Diabetes Mellitus Type II Status:Active Commen ts:Negative Family History Of. Hypertension Status:Active Comments:Father. Maternal Grandfather. Lung Cancer Status:Active Comments:Father. Paternal Grandfather. Prostate Cancer Status:Active Comments:Materna l Grandfather. Cerebrovascular Accident Status:Active Comment s:Negative Family History Of. Coronary Artery Disease Status:Active Comments :Negative Family History Of. Diabetes Mellitus Type II Status:Active Commen ts:Negative Family History Of. Hypertension Status:Active Comments:Father. Maternal Grandfather. Lung Cancer Status:Active Comments:Father. Paternal Grandfather. Prostate Cancer Status:Active Comments:Materna l Grandfather. Cerebrovascular Accident Status:Active Comment s:Negative Family History Of. Coronary Artery Disease Status:Active Comments :Negative Family History Of. Diabetes Mellitus Type II Status:Active Commen ts:Negative Family History Of. Hypertension Status:Active Comments:Father. Maternal Grandfather. Lung Cancer Status:Active Comments:Father. Paternal Grandfather. Prostate Cancer Status:Active Comments:Materna l Grandfather. Cerebrovascular Accident Status:Active Comment s:Negative Family History Of. Coronary Artery Disease Status:Active Comments :Negative Family History Of. Diabetes Mellitus Type II Status:Active Commen ts:Negative Family History Of. Hypertension Status:Active Comments:Father. Maternal Grandfather. Lung Cancer Status:Active Comments:Father. Paternal Grandfather. Prostate Cancer Status:Active Comments:Materna l Grandfather. Cerebrovascular Accident Status:Active Comment s:Negative Family History Of. Coronary Artery Disease Status:Active Comments :Negative Family History Of. Diabetes Mellitus Type II Status:Active Commen ts:Negative Family History Of. Hypertension Status:Active Comments:Father. Maternal Grandfather. Lung Cancer Status:Active Comments:Father. Paternal Grandfather. Prostate Cancer Status:Active Comments:Materna l Grandfather. Relationship Condition Age at Onset Recorded Date/[place] father Malignant neoplasm Unknown grandfather Malignant neoplasm Unknown Cerebrovascular Accident Status:Active Comment s:Negative Family History Of. Coronary Artery Disease Status:Active Comments :Negative Family History Of. Diabetes Mellitus Type II Status:Active Commen ts:Negative Family History Of. Hypertension Status:Active Comments:Father. Maternal Grandfather. Lung Cancer Status:Active Comments:Father. Paternal Grandfather. Prostate Cancer Status:Active Comments:Materna l Grandfather. Advance Directives No Advanced Directives Records Found Advance Directive Response Recorded Date/ Time Do you have a Healthcare Power of Transplant Nurse? No December 10, 2024 12:46am Advance Directives No February 8:54am Chief Complaint and Reason for Visit Chief Complaint Admit Date palpitations December 10, 2024 12:4 1am Additional Source Comments (unrecognized sect ion and content) No Status Records FoundNo Status Records FoundNo Status Records FoundNo Status Records FoundNo Status Records Found INFORMATION SOURCE (unrecogn ized section and content) DATE CREATED AUTHOR 08/01/2022 [facility] DATE CREATED AUTHOR AUTHOR'S ORGANIZ ATION [facility] DATE CREATED AUTHOR AUTHOR'S ORGANIZ ATION 12/07/2024 [facility] DATE CREATED AUTHOR AUTHOR'S ORGANIZ ATION 12/14/[address] [facility] DATE CREATED AUTHOR AUTHOR'S ORGANIZ ATION 12/15/2024 [facility] Source Comments (unrecognize d section and content) In the event this informatio n is protected by the Federal Confidentiality of Alcohol and Drug Abuse Patient Records regulations: The Federal rules restrict any use of the information to criminally investigate or prosecute any alcohol or drug abuse patient.[facility] CampusIn the event this information is protected by the Federal Confidentiality of Alcohol and Drug Abuse Patient Records regulations: The Federal rules restrict any use of the information to criminally investigate or prosecute any alcohol or drug abuse patient.[facility] CampusIn the event this information is protected by the Federal Confidentiality of Alcohol and Drug Abuse Patient Records regulations: The Federal rules restrict any use of the information to criminally investigate or prosecute any alcohol or drug abuse patient.[facility] Reason for Visit (unrecogniz ed section and content) Reason Comments Radiology US Specialty Diagnoses / Procedures Referred By Contac t Referred To Contact [facility] Diagnoses Postprandial RUQ pain Procedures US ABD RIGHT UPPER QUADRANT US ABDOMINAL REAL TIME W/IMAGE LIMITED Maribell Cheng APRN.CLINICAL EDUCATION MANAGER [address] [place] [address] Phone: tel: fax: [place] [address] Referral ID Status Reason Start Date Expiration Date V isits Requested Visits Authorized [id number] Closed Auto-Generate d Referral 11/10/2024 12/10/2025 1 1 Reason Comments CARD New Patient Consult PAF Care Teams (unrecognized sec tion and content) Team Status: Active Member Role/Relationship Status Dates Dr. Bhupendra Jurado MD Primary Care Provider Active Team Status: Inactive Member Role/Relationship Status Dates Dr. Bhupendra Jurado MD Primary Care Provider Active Start: December 10, 2024 End: December 10, 2024 Dr. Paolo Muñiz DO Emergency Provider Active Start: December 10, 2024 End: December 10, 2024 Air Filler Relationship Specialty Start Date End Date Bhupendra Jurado MD [address] [place] [address] [place] [address] PCP - General Family Medicine 12/12/24 Raghu Saunders APRN.CLINICAL EDUCATION MANAGER [address] [place], [place] [id number] Nurse Practitioner Cardiology 12/12/24 José Miguel Martinez MD [address] [place], [place] [id number] Specialty De Alcoholizer Cardiology 12/12/24 Goals (unrecognized section and content) Goals may be documented in a n alternate section FOR RECORDS PERTAINING TO PATIENTS WHO ARE OR HAVE BEEN ENROLLED IN A CHEMICAL DEPENDENCY/SUBSTANCEABUSE PROGRAM, SOME INFORMATION MAY BE OMITTED. This clinical summary was aggregated from multiple sources. Caution should be exercised in using it in the provision of clinical care. This summary normalizes information from multiple sources, and as a consequence, information in this document may materially change the coding, format and clinical context of patient data. In addition, data may be omitted in some cases. CLINICAL DECISIONS SHOULD BE BASED ON THE PRIMARY CLINICAL RECORDS. [facility]. provides no warranty or guarantee of the accuracy or completeness of information in this document.
[2024-12-25] MEDS: 0.9% Normal Saline (1000mL) 1,000 ML 999 ML IV (22:44)
[2024-12-25] MEDS: Lorazepam 2 MG/ML WCH Syringe 1 MG IV (22:44)
--- NOTE | 2024-12-25 23:10 | EKG12_ITS ---
Test Reason : RHYTHM CHANGE Blood Pressure : */* mmHG Vent. Rate : 75 BPM Atrial Rate : 75 BPM P-R Int : 164 ms QRS Dur : 82 ms QT Int : 410 ms P-R-T Axes : 6 0 10 degrees QTcB Int : 457 ms Normal sinus rhythm Normal ECG Confirmed by Antoine Urias ([id number]), digital editor PENNY SAVAGE ([id number]) on 12/26/2024 1:11:08 PM Referred By: Confirmed By: Antoine Urias
--- NOTE | 2024-12-25 23:45 | EDS_ITS ---
HPI History of Present Illness Chief Complaint: Palpitations Informant: patient and spouse/S.O. Narrative Narrative: Patient is a 54-year-old male with past medical history of hyperlipidemia and paroxysmal atrial fibrillation. He states that he was on flecainide for multiple years but was taken off of it in the last 6-month. He states he is going to see a application designer to schedule an ablation but that has not been set up yet. He reports he does not take Coumadin Xarelto or Eliquis as his episodes of A-fib have been very infrequent. He was seen roughly 2 weeks ago secondary to breakthrough A-fib and required cardioversion. At that time basic laboratory studies were obtained and showed no clinically significant finding. Patient states he has been taking all of his medication as directed and he denies any alcohol use excessive stimulant use or illicit drug use. He states that he can sense/feel when he goes in atrial fibrillation and he is only been in it for roughly 2 hours at this time. He states that as he has spent most of his time in normal sinus rhythm with only occasional breakthrough bouts of A-fib he does present to the ER for potential cardioversion. He states he has tried IV medication in the past which slowed his heart rate down but did not allow him to spontaneously convert. Therefore he presents with concerns/need for cardioversion [facility] Medical History (Updated 12/26/24 @ 07:[address] Stef Sim, ) Arteriosclerotic cardiovascular disease Colonoscopy planned Atrial fibrillation with rapid ventricular response (04/07/21) Obesity New onset atrial fibrillation (02/02/19) Paroxysmal atrial fibrillation Depression Hyperlipidemia Diverticulitis Herpes Insomnia Home Medications ?Medication ?Instructions ?Recorded ?Last Taken ?Type aspirin 81 mg chewable tablet 81 mg PO ONCE heart heal th #7 tabs 02/28/24 03/14/24 Rx atorvastatin 80 mg tablet 80 mg PO QHS #90 tabs Unknown Rx clopidogrel 75 mg tablet (Plavix) 75 mg PO QDAY #90 ta bs 12/08/24 Unknown Rx metoprolol succinate 50 mg 50 mg PO BID blood pressure #180 12/08/24 Unknown Rx tablet,extended release 24 hr tabs (Toprol XL) Allergy/AdvReac Type Severity Reaction Status Date / Time No Known Allergies Allergy Verified 12/25/24 21:47 Family History Father Cancer Grandmother No problems noted. Grandfather Cancer Surgical History Stented coronary artery (03/14/24) History of cardioversion (04/07/21) History of open sigmoidectomy Social History Smoking Status: Never smoker Smokeless tobacco user: other alcohol intake: current caffeine: Yes Type: coffee Number of servings: 2 ROS ROS ED Constitutional Constitutional ED: Denies chills or fever(s) Eyes Eyes: Denies blurry vision or change in vision ENT ENT ED: Denies sore throat Cardiovascular Cardiovascular: Reports palpitations and racing heartbeat; Denies chest pain Respiratory/Chest Respiratory/Chest: Denies cough or dyspnea Gastrointestinal Gastrointestinal: Denies abdominal pain, diarrhea, nausea or vomiting Musculoskeletal Musculoskeletal: Denies myalgias Integumentary Denies rash Neurologic Neurologic: Denies headache(s) EXAM Physical Exam Const Vital Signs: 12/25/24 21:46 12/25/24 22:06 12/25/24 22:15 Temperature 98 F Temperature Source Oral Pulse Rate 132 H 77 Pulse Rate [1 (Initial Baseline)] 120 H Respiratory Rate 16 16 Respiratory Rate [1 (Initial Baseline)] 16 Respiratory Effort Blood Pressure 150/98 H 109/74 Blood Pressure [1 (Initial Baseline)] 105/71 Blood Pressure Mean 115 Baseline BP Pulse Ox 98 94 Oxygen Delivery Method Room Air Room Air Oxygen Delivery Method [1 (Initial Baseline)] Nasal Cannula Oxygen Flow Rate (L/min) 0 Oxygen Flow Rate (L/min) [1 (Initial Baseline)] 2 Fraction of Inspired Oxygen (FIO2) [1 (Initial Baseline)] 2 EtCo2 - Document during CPR and with ROSC 34 EtCo2 - Document during CPR and with ROSC [1 (Initial Baseline)] 35 12/25/24 22:40 12/25/24 22:46 12/25/24 22:51 Temperature Temperature Source Pulse Rate 120 H Pulse Rate [1 (Initial Baseline)] Respiratory Rate 16 Respiratory Rate [1 (Initial Baseline)] Respiratory Effort Short of Breath Blood Pressure 105/70 Blood Pressure [1 (Initial Baseline)] Blood Pressure Mean 81 Baseline BP Pulse Ox 98 Oxygen Delivery Method Room Air Oxygen Delivery Method [1 (Initial Baseline)] Oxygen Flow Rate (L/min) Oxygen Flow Rate (L/min) [1 (Initial Baseline)] Fraction of Inspired Oxygen (FIO2) [1 (Initial Baseline)] EtCo2 - Document during CPR and with ROSC 37 EtCo2 - Document during CPR and with ROSC [1 (Initial Baseline)] 12/25/24 23:02 12/25/24 23:10 12/25/24 23:16 Temperature 98.1 F Temperature Source Pulse Rate 116 H 76 77 Pulse Rate [1 (Initial Baseline)] Respiratory Rate 16 16 16 Respiratory Rate [1 (Initial Baseline)] Respiratory Effort Blood Pressure 124/76 H 118/65 Blood Pressure [1 (Initial Baseline)] Blood Pressure Mean Baseline BP 124/76 Pulse Ox 98 98 94 Oxygen Delivery Method Nasal Cannula Room Air Room Air Oxygen Delivery Method [1 (Initial Baseline)] Oxygen Flow Rate (L/min) 2 0 0 Oxygen Flow Rate (L/min) [1 (Initial Baseline)] Fraction of Inspired Oxygen (FIO2) [1 (Initial Baseline)] EtCo2 - Document during CPR and with ROSC 33 34 EtCo2 - Document during CPR and with ROSC [1 (Initial Baseline)] 12/25/24 23:49 Temperature 98.1 F Temperature Source Pulse Rate 77 Pulse Rate [1 (Initial Baseline)] Respiratory Rate 16 Respiratory Rate [1 (Initial Baseline)] Respiratory Effort Blood Pressure 120/66 Blood Pressure [1 (Initial Baseline)] Blood Pressure Mean 84 Baseline BP Pulse Ox 97 Oxygen Delivery Method Oxygen Delivery Method [1 (Initial Baseline)] Oxygen Flow Rate (L/min) Oxygen Flow Rate (L/min) [1 (Initial Baseline)] Fraction of Inspired Oxygen (FIO2) [1 (Initial Baseline)] EtCo2 - Document during CPR and with ROSC EtCo2 - Document during CPR and with ROSC [1 (Initial Baseline)] Positive well nourished and well developed General Appearance ED: well developed; Negative for pallor HEENT HEENT Narrative: Normocephalic atraumatic No tongue or lip swelling no airway edema or compromise Eyes PERRL and EOMs intact bilaterally General Eye ED: Negative for scleral icterus Neck supple and no JVD Resp normal respiratory effort and clear to auscultation bilaterally Cardio Rate: other Other Details: Irregularly irregular rhythm with tachycardic rate consistent with atrial fibrillation GI normal to inspection, nondistended, normoactive bowel sounds, non-tender, non- distended and no masses Auscultation: normoactive bowel sounds Palpation: soft Extremity normal to inspection Extremity Narrative: No asymmetric edema no pitting edema negative Homans' sign bilaterally Neuro oriented x3, CN's II-XII intact bilaterally and no sensory deficits noted Sensorium / Orientation: alert Motor Exam: strength 5/5 throughout Psych mental status grossly normal Skin no rashes or lesions noted and no wounds General Skin Exam: Negative for jaundice or pallor MDM MDM MDM Narrative Medical decision making narrative: Patient arrived to the ER mildly tachycardic and an irregular rhythm consistent with his history of paroxysmal A-fib. As he was just seen in the last 2 weeks and had laboratory studies obtained which revealed no acute findings and has a known history of atrial fibrillation I did not feel any need to repeat labs at this time. I discussed with the patient and spouse potential IV medication to slow his heart rate down and see if he can convert on his own. He states this is never helped him before in the past and that cardioversion is the only method that has taken amount of A-fib. As he has been off flecainide for 6 months and now is having more frequent breakthrough bouts of A-fib this is most likely the cause of his recurrent symptoms. He states he will follow-up with his stockroom inventory clerk to discuss new medications that can be added to reduce the frequency of his A-fib while he is awaiting his ablation. However at this time he has a known history of A-fib he is only been in it for approximately 2 hours and the risk for clot development is extremely low. We discussed the risks and benefits of undergoing cardioversion at this time as he is not anticoagulated and he is acceptable with this. Therefore the patient was cardioverted as doc umented below and after return to normal sinus rhythm is otherwise safe for discharge Patient was given a total of 50 mg of propofol. Following this 100 J were used with synchronized cardioversion to convert the patient from atrial fibrillation with rapid ventricular response to normal sinus rhythm. Patient tolerated the procedure well without complication. History & Record Review Discussion w/independent historian: Patient and Significant other Procedures Procedural Sedation 1 (Initial Baseline): Consent Signed: Yes Any Problems With Anesthesia: No You/Your family experience fever (hyperthermia) w/anesthesia: No Sedation medication: Propofol Dose: 50 Route: IV Maliampati Score: Class II ASA Classification: III Discharge Plan Triage Chief Complaint: Palpitations ED Provider: Stef Sim Dx/Rx/DC Orders Clinical Impression: Paroxysmal atrial fibrillation, Hyperlipidemia, Arteriosclerotic cardiovascular disease Instructions: AFib Dc Prescriptions: No Action aspirin 81 mg tablet,chewable 81 mg PO ONCE Qty: 7 0RF atorvastatin 80 mg tablet 80 mg PO QHS Qty: 90 3RF clopidogrel [Plavix] 75 mg tablet 75 mg PO QDAY Qty: 90 3RF metoprolol succinate [Toprol XL] 50 mg tablet extended release 24 hr 50 mg PO BID Qty: 180 3RF Primary Care Provider: Bhupendra Jurado Referrals: Epi Davis MD [Non-Staff] - Bhupendra Jurado MD [Primary Care Provider] - Activity Restrictions/Additional Instructions: Please follow-up with your stockroom inventory clerk to discuss further treatment options regarding your paroxysmal A-fib and return to the ER should you have any further concern Print Language: Luxembourgish Disposition Disposition: Home, Self Care Discharge Date/Time: 12/25/24 23:57
== END 2024-12-25 23:57 | disposition home or self-care (01) ==
PROVIDERS: Emergency Provider Emergency Medicine; PCP Family Medicine; Visit Provider Emergency Medicine
DX: I48.0 Paroxysmal atrial fibrillation (principal); I25.10 Atherosclerotic heart disease of native coronary artery without angina pectoris; E78.5 Hyperlipidemia, unspecified
CPT/HCPCS: 93005; 96361; 96374; 96376; 99285; A4216